=== PATIENT | female | born 1945 | race Caucasian/White ===

== ENCOUNTER 2023-02-05 11:14 | Outpatient (OUT) | payer MEDICARE, OTHER, SELFPAY ==
--- NOTE | 2023-02-05 11:23 | XR_ITS ---
The [address] [address] Patient Name: BIANKA JOY MRN: [id number] date: 1945 Sex: F Assigned Patient Location: [facility] Current Patient Location: [facility] Accession/Order Number: [id number] Exam Date: 02/05/2023 11:25 Report Date: 02/05/2023 16:58 At the request of: KYLE RAI Procedure: XR abdomen 1V EXAMINATION: XR abdomen 1V HISTORY: Kidney Stone N20.0 COMPARISON: No relevant comparison available. FINDINGS: KIDNEY/URETER - RIGHT: No visible renal or ureteral calcifications. KIDNEY/URETER - LEFT: 11.1 x 5.3 mm calcification projects over the lower pole of the left kidney PELVIS: No visible ureteral calcifications. Any visible calcifications favor phleboliths. BOWEL: No abnormal dilation or deviation. BONES: No acute abnormality. Degenerative spondylosis OTHER: Negative. No abnormal gaseous collections. XR/XR abdomen 1V IMPRESSION: 11.1 mm left nephrolith Electronically authenticated by: VARGAS ULRICH Date: 02/05/2023 16:58
== END 2023-02-05 11:15 | disposition home or self-care (01) ==
LOC: RAD 11:19
PROVIDERS: PCP Family Medicine; Visit Provider Urology
DX: N20.0 Calculus of kidney (principal)
CPT/HCPCS: 74018

== ENCOUNTER 2024-02-10 11:20 | Outpatient (OUT) | payer MEDICARE, OTHER, SELFPAY ==
--- NOTE | 2024-02-10 11:28 | XR_ITS ---
The [address] [address] Patient Name: BIANKA JOY MRN: [id number] date: 1945 Sex: F Assigned Patient Location: [facility] Current Patient Location: Accession/Order Number: [id number] Exam Date: 02/10/2024 11:43 Report Date: 02/11/2024 10:30 At the request of: KYLE RAI Procedure: XR abdomen 1V EXAMINATION: XR abdomen 1V HISTORY: Kidney Stone N20.0 COMPARISON: No relevant comparison available. FINDINGS: KIDNEY/URETER - RIGHT: No visible renal or ureteral calcifications. KIDNEY/URETER - LEFT: Collection of 3-5 mm stones within inferior pole of left kidney. PELVIS: No convincing ureteral stones. Stable pelvic calcifications favoring phleboliths. BOWEL: No abnormal dilation or deviation. BONES: No acute abnormality. OTHER: Negative. No abnormal gaseous collections. XR/XR abdomen 1V IMPRESSION: 1. Left nephrolithiasis. Electronically authenticated by: STEPHANIE MARIA Date: 02/11/2024 10:30
== END 2024-02-10 11:21 | disposition home or self-care (01) ==
LOC: RAD 11:22
PROVIDERS: PCP Family Medicine; Visit Provider Urology
DX: N20.0 Calculus of kidney (principal)
CPT/HCPCS: 74018

== ENCOUNTER 2025-02-07 12:57 | Outpatient (OUT) | payer MEDICARE, OTHER, SELFPAY ==
--- NOTE | 2025-02-07 13:17 | XR_ITS ---
The [address] [address] Patient Name: BIANKA JOY MRN: [id number] date: 1945 Sex: F Assigned Patient Location: [facility] Current Patient Location: [facility] Accession/Order Number: [id number] Exam Date: 02/07/2025 13:10 Report Date: 02/07/2025 13:44 At the request of: KYLE RAI MD Procedure: XR abdomen 1V SINGLE VIEW ABDOMEN COMPARISON: 02/10/2024 CLINICAL DATA: History of left-sided kidney stones. Supine views of the abdomen and pelvis were obtained. There is air and stool within the colon. No dilated small bowel loops are seen. The kidneys are partially obscured. There are similar clustered stones overlying the lower pole of the left kidney. There are no suspect radiopaque renal or ureteral calculi. No soft tissue masses are noted. There is slight dextroscoliotic curvature and degenerative change at the spine. XR/XR abdomen 1V IMPRESSION: CONTINUED LEFT NEPHROLITHIASIS. Impression dictated by: Dorita Garcia M.D. 02/07/2025 1:44 PM Dictation Location: [place] [address] Electronically authenticated by: [id number] Y Date: 02/07/2025 13:44
== END 2025-02-07 12:58 | disposition home or self-care (01) ==
LOC: RAD 13:01
PROVIDERS: PCP Family Medicine; Visit Provider Urology
DX: N20.0 Calculus of kidney (principal)
CPT/HCPCS: 74018

== ENCOUNTER 2025-02-18 10:08 | Outpatient (OUT) | payer MEDICARE, OTHER, SELFPAY ==
--- OUTSIDE RECORDS SUMMARY | 2025-02-18 10:09 | XMS_ITS | Encounter Summary ---
Author Organization [facility] s tem Address [id number] [address] [place] [address] Care Team Providers Care Telehealth Coordinator Name Role Phone JaiHerb Heather DE LA GARZA Primary Care Provider + [phone] Encounter Details Date Type Department Care Team (Late st Contact Info) Description 06/18/2023 [facility]phone [facility] [address] [place] [address] Feli Lombardi CMA Social History Tobacco Use Types Packs/Day Years Used Date Smoking Tobacco: Never Smokeless Tobacco: Never Alcohol Use Standard Drinks/Week Comments Not Currently 0 (1 standard drink = 0.6 oz pur e alcohol) Social Connection and Isolat ion Panel [NHANES] Answer Date Recorded In a typical week, how many times do you talk on the phone with family, friends, or neighbors? More than three times a week 10/31/2022 How often do you get togethe r with friends or relatives? Twice a week 10/31/2022 How often do you attend chur ch or gnosticism services? More than 4 times per year 10/31/2022 Do you belong to any clubs o r organizations such as jehovah's witness groups, unions, fraternal or athletic groups, or school groups? No 10/31/2022 How often do you attend meet ings of the clubs or organizations you belong to? Never 10/31/2022 Are you , , di vorced, , never , or living with a partner? 10/31/2022 AUDIT-C Answer Date Recorded Q1: How often do you have a drink containing alcohol? Never 09/02/2022 Q2: How many drinks containi ng alcohol do you have on a typical day when you are drinking? Patient does not drink Q3: How often do you have si x or more drinks on one occasion? Never 09/02/2022 Overall Financial Resource Strain (CARDIA) Answe r Date Recorded How hard is it for you to pa y for the very basics like food, housing, medical care, and heating? Not hard at all 09/02/2022 PHQ-2 Answer Date Recorded Total Score 1 10/31/2022 [facility] of Occupat ional Health - Occupational Stress Questionnaire Answer Date Recorded Do you feel stress - tense, restless, nervous, or anxious, or unable to sleep at night because your mind is troubled all the time - these days? Only a little 09/02/2022 Exercise Vital Sign Answer Date Recorde d On average, how many days pe r week do you engage in moderate to strenuous exercise (like a brisk walk)? 0 days 09/02/2022 On average, how many minutes do you engage in exercise at this level? 0 min 09/02/2022 PRAPARE - Transportation Answer Date Re corded In the past 12 months, has l ack of transportation kept you from medical appointments or from getting medications? No 07/2022 In the past 12 months, has l ack of transportation kept you from meetings, work, or from getting things needed for daily living? No 09/02/2022 Housing Instability Answer Date Recorde d Are you worried or concerned that in the next two months you may not have stable housing that you own, rent or stay in as a part of a household? No 09/02/2022 Childcare Answer Date Recorded Do problems getting child ca re make it difficult for you to work or study? No 09/02/2022 Employment Answer Date Recorded Do you need help finding a [facility] career center and/or a training program? No 09/02/2022 Hunger Screening Answer Date Recorded Within the past 12 months we worried whether our food would run out before we got money to buy more. Never True 10/31/2022 Within the past 12 months th e food we bought just didn't last and we didn't have money to get more. Never True 10/31/2022 Purpose - Life Answer Date Recorded I have a purpose and direction in my life. Stron gly Agree 10/31/2022 Comments No Sex and Gender Information Value Date Recorded Sex Assigned at Not on file Legal Sex Female 11:33 AM EDT Gender Identity Not on file Sexual Orientation Not on file documented as of this encounter Miscellaneous Notes * Telephone Encounter - Feli Lombardi CMA - 06/18/2023 10:28 AM EST Patient came in with and stated she needs an [facility] to [facility] documented in this encounter Plan of Treatment Upcoming Encounters Date Type Department Care Team (Late st Contact Info) Description 07/08/2025 10:30 AM EST Office Visit [facility] - Family Medicine [address] [place] [address] Herb Vergara DO [address] [facility] [place] [address] 11/15/2025 1:00 PM EDT Office Visit [facility] - Family Medicine [address] [place] [address] documented as of this encounter Visit Diagnoses Not on filedocumented in this encounter Additional Health Concerns Assessment Noted Time PHQ-9 Depression Total Score: 1 11/01/19 23 12:11 PM EDT documented as of this encounter Care Teams Telehealth Coordinator Relationship Specialty Start Date End Date Herb Vergara DO [address] [facility] [place] [address] PCP - General Family Medicine 11/05/17 documented as of this encounter
--- NOTE | 2025-02-18 10:10 | US_ITS ---
The [address] [address] Patient Name: BIANKA JOY MRN: [id number] date: 1945 Sex: F Assigned Patient Location: Current Patient Location: US Accession/Order Number: [id number] Exam Date: 02/18/2025 10:16 Report Date: 02/18/2025 11:50 At the request of: KYLE RAI MD Procedure: US renal BI BILATERAL RENAL AND BLADDER ULTRASOUND CLINICAL HISTORY: Left flank pain. History of kidney stones. COMPARISON: CT 04/29/2018 and KUB 02/07/2025 Estimation of renal size is approximately 9.1 cm on the right and 11.5 cm on the left. There is mild cortical thinning. There is an echogenic focus with twinkle artifact at the inferior pole of the left kidney measuring approximately 14 mm in size. This correlates with the calcified stone seen on recent KUB. There is also a potential second tiny stone in close proximity measuring 3 - 4 mm. No hydronephrosis is identified. There is a tiny right renal cyst measuring 1 cm in size. There are also left renal cysts, largest at the inferior pole measuring 18 x 16 x 15 mm. There is no perinephric fluid. The urinary bladder is not well distended with a volume of 46 mL. No contour or intraluminal abnormalities are seen. US/US renal BI IMPRESSION: LEFT NEPHROLITHIASIS. RENAL CYSTS. NO OBSTRUCTIVE UROPATHY. Impression dictated by: Dorita Garcia M.D. 02/18/2025 11:50 AM Dictation Location: [place] [address] Electronically authenticated by: [id number] Y Date: 02/18/2025 11:50
--- OUTSIDE RECORDS SUMMARY | 2025-02-18 10:10 | XMS_ITS | Encounter Summary ---
Author Organization [facility] Sys tem Address [id number] [address] [place] [address] Care Team Providers Care Associate Entertainment Editor Name Role Phone Herb Vergara DO Primary Care Provider [phone] Encounter Details Date Type Department Care Team (Late st Contact Info) Description 10/03/2023 Orders Only [facility] - Family Medicine [address] [place] [address] Herb Vergara DO [address], [facility] [address] Type 2 diabetes mellitus with stage 3b chronic kidney disease, without long-term current use of insulin ([facility]) Social History Tobacco Use Types Packs/Day Years [...] often do you attend chur ch or confucianist services? More than 4 times per year 10/31/2022 Do you belong to any clubs o r organizations such as zoroastrianism groups, unions, fraternal or athletic groups, or [...] 09/02/2022 PHQ-2 Answer Date Recorded Total Score 6 09/30/2023 [facility] of Occupat ional Health - Occupational Stress [...] Recorded Do you need help finding a [facility] career center and/or a training program? No 09/02/2022 Hunger Screening Answer Date Recorded Within the past 12 months we worried whether our food would run out before we got money to buy more. Never True 09/30/2023 Within the past 12 months th e food we bought just didn't last and we didn't have money to get more. Never True 09/30/2023 Purpose - Life Answer Date Recorded I have a purpose and direction in my life. Stron gly Agree 10/31/2022 Comments No Sex and Gender Information Value Date Recorded Sex Assigned at Not on file Legal Sex Female 11:33 AM EDT Gender Identity Not on file Sexual Orientation Not on file documented as of this encounter Plan of Treatment Upcoming Encounters Date Type Department Care Team (Late st Contact Info) Description 07/08/2025 10:30 AM EST Office Visit [facility] - Family Medicine [address] [place] [address] Herb Vergara DO [address] [facility] [place] [address] 11/15/2025 1:00 PM EDT Office Visit [facility] - Family Medicine [address] [place] [address] documented as of this encounter Visit Diagnoses Diagnosis Type 2 diabetes mellitus with stage 3b chronic kidney disease, without long-term current use of insulin ([facility]) documented in this encounter Additional Health Concerns Assessment Noted Time PHQ-9 Depression Total Score: 6 09/30/19 24 3:28 PM EDT A Body Mass Index follow-up plan has been documented for the patient 08/29/2023 1:31 PM EDT documented as of this encounter Care Teams Associate Entertainment Editor Relationship Specialty Start Date End Date Herb Vergara DO [address] [facility] [place] [address] PCP - General Family Medicine 11/05/17 documented as of this encounter
--- OUTSIDE RECORDS SUMMARY | 2025-02-18 10:10 | XMS_ITS | Encounter Summary ---
Author Organization [facility] Sys tem Address [id number] [address] [place] [address] Care Team Providers Care Bar Manager Name Role Phone Herb Vergara DO Primary Care Provider + [phone] Reason for Visit * Reason Comments Med Refill Encounter Details Date Type Department Care Team (Late st Contact Info) Description 11/12/2022 Refill [facility] - Family Medicine [address] [place] [address] Herb Vergara DO [address], [facility] [place] [address] Mixed hyperlipidemia Social History Tobacco Use Types Packs/Day Years [...] 10/31/2022 How often do you attend chur or anabaptism services? More than 4 times per year 10/31/2022 Do you belong to any clubs o r organizations such as cheondoism groups, unions, fraternal or athletic groups, or [...] Answer Date Recorded Total Score 1 10/31/2022 [facility] of Occupat ional Health - Occupational Stress [...] Recorded Do you need help finding a [facility] career center and/or a training program? No [...] - Family Medicine [address] [place] [address] Herb Vergara DO [address] [facility] [place] [address] 11/15/2025 1:00 PM EDT Office Visit [facility] - Family Medicine [address] [place] [address] documented as of this encounter Visit Diagnoses Diagnosis Mixed hyperlipidemia documented in this encounter Additional Health Concerns Assessment Noted Time PHQ-9 Depression Total Score: 1 11/01/19 23 12:11 PM EDT documented as of this encounter Care Teams Bar Manager Relationship Specialty Start Date End Date Herb Vergara DO [address] [facility] [place] [address] PCP - General Family Medicine 11/05/17 documented as of this encounter
--- OUTSIDE RECORDS SUMMARY | 2025-02-18 10:10 | XMS_ITS | Encounter Summary ---
Author Organization [facility] Sys [facility] Address [facility]-[id number] [address] [place] [address] Care Team Providers Care Paper Plate Machine Tender Name Role Phone Herb Vergara DO Primary Care Provider + [phone] Reason for Visit * Reason Comments Med Refill Encounter Details Date Type Department Care Team (Late st Contact Info) Description 12/24/2022 Refill [facility] - Family Medicine [address] [place] [place] [address] Herb Vergara DO [address], [facility] [place] [address] Social History Tobacco Use Types Packs/Day Years [...] often do you attend chur ch or protestant services? More than 4 times per year 10/31/2022 Do you belong to any clubs o r organizations such as sikhism groups, unions, fraternal or athletic groups, or [...] Answer Date Recorded Total Score 1 10/31/2022 [facility] of Occupat ional Health - Occupational [...] Recorded Do you need help finding a [facility] career center and/or a training program? No [...] Medicine - Family Medicine [address] [place] [address] Herb Vergara DO [address], [facility] [place] [address] 11/15/2025 1:00 PM EDT Office Visit [facility] - Family Medicine [address] [place] [address] documented as of this encounter Visit Diagnoses Not on filedocumented in this encounter Additional Health Concerns Assessment Noted Time PHQ-9 Depression Total Score: 1 11/01/19 23 12:11 PM EDT documented as of this encounter Care Teams Paper Plate Machine Tender Relationship Specialty Start Date End Date Herb Vergara DO [address] [place] [address] [address] PCP - General Family Medicine 11/05/17 documented as of this encounter
--- OUTSIDE RECORDS SUMMARY | 2025-02-18 10:10 | XMS_ITS | Encounter Summary ---
Author Organization [employer] s tem Address [id number] [address] [place] [address] Care Team Providers Care Conference Services Manager Name Role Phone Herb Vergara DO Primary Care Provider [phone] Encounter Details Date Type Department Care Team (Late st Contact Info) Description 03/26/2024 Telephone Family [facility] [address] [place] [address] Herb Vergara DO [address] [facility], [facility] [place] [address] Social History Tobacco Use Types Packs/Day Years Used Date Smoking Tobacco: Never Smokeless Tobacco: Never Alcohol Use Standard Drinks/Week Comments Not Currently 0 (1 standard drink = 0.6 oz pur e alcohol) [facility] Utilities Answer Date Recorded In the past 12 months has [employer], gas, oil, or water [employer] threatened to shut off services in your home? No 11/06/2023 Social Connection and Isolat ion Panel [NHANES] Answer Date Recorded In a typical week, how many times do you talk on the phone with family, friends, or neighbors? More than three times a week 10/31/2022 How often do you get togethe r with friends or relatives? Twice a week 10/31/2022 How often do you attend [facility] or jain services? More than 4 times per year 10/31/2022 Do you belong to any clubs o r organizations such as restoration groups, unions, fraternal or athletic groups, or [...] 09/02/2022 PHQ-2 Answer Date Recorded Total Score 0 11/06/2023 [facility] of Occupat ional Health - Occupational [...] exercise (like a brisk walk)? 0 days 11/06/2023 On average, how many minutes do you engage in exercise at this level? 0 min 11/06/2023 PRAPARE - Transportation Answer Date Re corded [...] Recorded Do you need help finding a [facility] and/or a training program? [...] - Family Medicine [address] [place] [address] Herb Vergara DO [address] [facility] [place] [address] 11/15/2025 1:00 PM EDT Office Visit [facility] - Family Medicine [address] [place] [address] documented as of this encounter Visit Diagnoses Not on filedocumented in this encounter Additional Health Concerns Assessment Noted Time PHQ-9 Depression Total Score: 0 11/06/19 24 1:00 PM EDT A Body Mass Index follow-up plan has been documented for the patient 08/29/2023 1:31 PM EDT documented as of this encounter Care Teams Conference Services Manager Relationship Specialty Start Date End Date Herb Vergara DO [address] [facility] [place] [address] PCP - General Family Medicine 11/05/17 documented as of this encounter
--- OUTSIDE RECORDS SUMMARY | 2025-02-18 10:10 | XMS_ITS | Encounter Summary ---
Author Organization [facility] Sys tem Address [id number] [address] [place] [address] Care Team Providers Care Personal Injury Paralegal Name Role Phone Herb Vergara DO Primary Care Provider [phone] Encounter Details Date Type Department Care Team (Late st Contact Info) Description 10/15/2022 Orders Only [facility] Internal Medicine - Family Medicine [address] [place] [address] Herb Vergara DO [address], [facility] [place] [address] Social History Tobacco Use Types Packs/Day Years Used Date Smoking Tobacco: Never Smokeless Tobacco: Never Alcohol Use Standard Drinks/Week Comments Not Currently 0 (1 standard drink = 0.6 oz pur e alcohol) AUDIT-C Answer Date Recorded Q1: How often [...] PHQ-2 Answer Date Recorded Total Score 0 10/14/2022 [facility] [place] of Occupat ional Health - Occupational Stress [...] Recorded Do you need help finding a [facility] career center and/or a training program? No 09/02/2022 Purpose - Life Answer Date Recorded Purpose and direction in life Unknown Comments No Sex and Gender Information Value [...] Medicine - Family Medicine [address] [place] [address] Herb Vergara DO [address], [place] [address] 11/15/2025 1:00 PM EDT Office Visit [facility] - Family Medicine [address] [place] [address] documented as of this encounter Procedures Procedure Name Priority Date/Time Associated Diagnosis Comments HM DEXA SCAN Routine 09/18/2018 HEPATITIS C(HCV) ANTIBODY W/ REFLEX TO PCR Routine 08/12/2017 documented in this encounter Results * HM DEXA SCAN (09/18/2018) Anatomical Region Laterality Modality Other us Herb Vergara DO HEALTH MAINTENANCE Final Res ult * Hepatitis C(HCV) Ab w/ Reflex to PCR (08/12/2017) us Herb Vergara DO LAB BLOOD ORDERABLES Final R esult MANUALLY TRANSCRIBED RESULTS documented in this encounter Visit Diagnoses Not on filedocumented in this encounter Additional Health Concerns Assessment Noted Time PHQ-9 Depression Total Score: 0 10/15/19 23 10:39 AM EDT documented as of this encounter Care Teams Personal Injury Paralegal Relationship Specialty Start Date End Date Herb Vergara DO [address], [place] [address] PCP - General Family Medicine 11/05/17 documented as of this encounter
--- OUTSIDE RECORDS SUMMARY | 2025-02-18 10:10 | XMS_ITS | Clinical Summary ---
Author Organization [facility] Healthcare Address [address] [place] [address] Care Team Providers Care Nurse Epidemiologist Name Role Phone Herb Vergara MD Primary Care Provider + [phone] Allergies Active Allergy Reactions Criticality Noted Date Comments Penicillins Unknown,Swelling 09/25/2021 Swelling in hands Medications acetaminophen (Tylenol) 325 MG tablet every 4 (four) hours Active amLODIPine (Norvasc) 5 MG tablet Take 5 mg by mouth in the morning. Active aspirin 81 MG EC tablet Take 81 mg by mouth in the morning. Active atorvastatin (Lipitor) 40 MG tablet Take 1 tablet by mouth in the morning. 4 Active azithromycin (Zithromax) 250 MG tablet TAKE 2 TABLETS BY MOUTH 1 HOUR PRIOR TO APPOINTMENT 4 Active cholecalciferol (Vitamin D-3) 50 MCG (1999 UT) capsule Daily 4 Active doxycycline (Vibramycin) 100 MG capsule Twice daily 4 Active famotidine (Pepcid) 40 MG tablet TAKE 1 TABLET BY MOUTH TWICE DAILY (IN THE MORNING AND AT BEDTIME) Active loratadine (Claritin) 10 MG tablet Take 10 mg by mouth in the morning. Active losartan (Cozaar) 100 MG tablet Take 100 mg by mouth Daily Active magnesium gluconate 550 MG tablet Take 30 mg by mouth in the morning and 30 mg in the evening. Active pantoprazole (ProtoNix) 40 MG EC tablet Take 40 mg by mouth in the morning. Active Potassium Bicarb-Citric Acid (Effer-K) 10 MEQ effervescent tablet 1 (one) time each day at the same time Active sertraline (Zoloft) 50 MG tablet Take 1 tablet by mouth Daily 4 Active simvastatin (Zocor) 20 MG tablet 1 (one) time each day at the same time Active Family History Relation Name Status Comments Father Mother Social History Tobacco Use Types Packs/Day Years Used Date Smoking Tobacco: Never Assessed Comments Unknown Sex and Gender Information Value Date Recorded Sex Assigned at Not on file Legal Sex Female 7:08 PM EDT Gender Identity Not on file Sexual Orientation Not on file Last Filed Vital Signs Vital Sign Reading Time Taken Comments Blood Pressure - - Pulse - - Temperature - - Respiratory Rate - - Oxygen Saturation - - Inhaled Oxygen Concentration - - Weight 77.1 kg (170 lb) 05/15/2022 12:00 PM EST Height 160 cm (5' 3 ) 05/15/2022 12:00 PM EST Body Mass Index 30.11 05/15/2022 12:00 PM EST Plan of Treatment Upcoming Encounters Date Type Department Care Team (Late st Contact Info) Description 01/16/2026 2:45 PM EDT Office Visit [facility] [address] [place] [address] Jr. Beto Dubon , DO [address] [facility] [address] [place] [address] Health Maintenance Due Date Last Done Comments Influenza Vaccine (#1) 2025 3, 03/08/2022, 03/14/2021, Additional history exists Pneumococcal Vaccine: 65+ Years Completed 02/18/2018, 01/31/2015, 12/25/2011 Insurance MEDICARE [employer] Care Teams Nurse Epidemiologist Relationship Specialty Start Date End Date Herb Vergara MD PCP - General Family Medicine 01/12/24
--- OUTSIDE RECORDS SUMMARY | 2025-02-18 10:10 | XMS_ITS | Encounter Summary ---
Author Organization [facility] [employer] [facility] [employer] Address [id number] [address] [place] [address] Care Team Providers Care [employer] Truck Driver Name Role Phone Herb Vergara DO Primary Care Provider + [phone] Reason for Visit * Reason Comments Med Refill Encounter Details Date Type Department Care Team (Late st Contact Info) Description 11/27/2022 Refill [facility] - Family Medicine [address] [place] [address] Herb Vergara DO [address], [facility] [place] [address] Social History Tobacco Use Types Packs/Day Years [...] often do you attend chur ch or alevism services? More than 4 times per year 10/31/2022 Do you belong to any clubs o r organizations such as anabaptism groups, unions, fraternal or athletic groups, or [...] Answer Date Recorded Total Score 1 10/31/2022 [facility] of Occupat ional Health - Occupational Stress [...] Recorded Do you need help finding a [facility] career [facility] and/or a training program? No [...] Medicine - Family Medicine [address] [place] [address] Herb Vergara DO [address], [facility] [place] [address] 11/15/2025 1:00 PM EDT Office Visit [facility] - Family Medicine [address] [place] [address] documented as of this encounter Visit Diagnoses Not on filedocumented in this encounter Additional Health Concerns Assessment Noted Time PHQ-9 Depression Total Score: 1 11/01/19 23 12:11 PM EDT documented as of this encounter Care Teams [employer] Truck Driver Relationship Specialty Start Date End Date Herb Vergara DO [address] [place] [address] [place] [address] PCP - General Family Medicine 11/05/17 documented as of this encounter
--- OUTSIDE RECORDS SUMMARY | 2025-02-18 10:10 | XMS_ITS | Encounter Summary ---
Author Organization [facility] Address [id number] [address] [place] [address] Care Team Providers Care Inventory Checker Name Role Phone JaiHerb Heather DE LA GARAZ Primary Care Provider + [phone] Encounter Details Date Type Department Care Team (Late st Contact Info) Description 11/26/2022 Orders Only [facility] - Family Medicine [address] [place] [address] Rosario Suarez CMA Asymptomatic menopause Social History Tobacco Use Types Packs/Day Years [...] often do you attend chur ch or mu-ism services? More than 4 times per year 10/31/2022 Do you belong to any clubs o r organizations such as buddhist groups, unions, fraternal or athletic groups, or [...] Answer Date Recorded Total Score 1 10/31/2022 [facility] [place] of Occupat ional Health - Occupational Stress [...] Recorded Do you need help finding a l al career center and/or a training program? No [...] - Family Medicine [address] [place] [address] Herb Vergara DO [address] [facility] [place] [address] 11/15/2025 1:00 PM EDT Office Visit [facility] - Family Medicine [address] [place] [address] documented as of this encounter Procedures Procedure Name Priority Date/Time Associated Diagnosis Comments DEXA SCAN CENTRAL SKELETAL Routine 11/25/2022 Asymptomatic menopause documented in this encounter Results * Dexa scan central skeletal (11/25/2022) Anatomical Region Laterality Modality N/A Radiographic Alma ging 11/25/2022 us Herb Vergara DO IMG DXA ORDERABLES Final Res ult documented in this encounter Visit Diagnoses Diagnosis Asymptomatic menopause documented in this encounter Additional Health Concerns Assessment Noted Time PHQ-9 Depression Total Score: 1 11/01/19 23 12:11 PM EDT documented as of this encounter Care Teams Inventory Checker Relationship Specialty Start Date End Date Herb Vergara DO [address], [facility] [place] [address] PCP - General Family Medicine 11/05/17 documented as of this encounter
--- OUTSIDE RECORDS SUMMARY | 2025-02-18 10:10 | XMS_ITS | Encounter Summary ---
Author Organization [facility] [employer] [facility] Address [id number] [address] [place] [address] Care Team Providers Care Industrial Machine Operator Name Role Phone Herb Vergara DO Primary Care Provider [phone] Reason for Visit * Reason Onset Date Comments Med Refill 09/30/2022 Encounter Details Date Type Department Care Team (Late st Contact Info) Description 09/30/2022 Refill [facility] - Family Medicine [address] [place] [address] Herb Vergara DO [address], [facility] [place] [address] Social History Tobacco Use Types Packs/Day Years [...] PHQ-2 Answer Date Recorded Total Score 0 09/02/2022 [facility] [place] of Occupat ional Health - Occupational Stress [...] Recorded Do you need help finding a [employer] career center and/or a training program? No 09/02/2022 Purpose - Life Answer Date Recorded Purpose and direction in life Unknown Comments No Sex and Gender Information Value Date Recorded Sex Assigned at Not on file Legal Sex Female 11:33 AM EDT Gender Identity Not on file Sexual Orientation Not on file COVID-19 Exposure Response Date Recorded In the last month, have you been in contact with someone who was confirmed or suspected to have Coronavirus / COVID-19? No / Unsure 09/02/2022 10:14 AM EDT documented as of this encounter Plan of Treatment Upcoming Encounters Date Type Department Care Team (Late st Contact Info) Description 07/08/2025 10:30 AM EST Office Visit [facility] - Family Medicine [address] [place] [address] Herb Vergara DO [address] [facility] [place] [address] 11/15/2025 1:00 PM EDT Office Visit [facility] - Family Medicine [address] [place] [address] documented as of this encounter Visit Diagnoses Not on filedocumented in this encounter Additional Health Concerns Assessment Noted Time PHQ-9 Depression Total Score: 0 09/03/19 23 10:30 AM EDT documented as of this encounter Care Teams Industrial Machine Operator Relationship Specialty Start Date End Date Herb Vergara DO [address] [facility] [place] [address] PCP - General Family Medicine 11/05/17 documented as of this encounter
--- OUTSIDE RECORDS SUMMARY | 2025-02-18 10:10 | XMS_ITS | Clinical Summary ---
Author Organization [employer] Address [id number] [address] [place] [address] Care Team Providers Care Pharmacy Student Name Role Phone JaiHerb Primary Care Provider Allergies Active Allergy Reactions Criticality Noted Date Comments Adhesive Rash Medium 09/25/2021 Adhesive Tape Penicillins Other (See Comments) 09/25/2021 Swelling in hands Medications potassium citrate (UROCIT-K) 10 mEq (1,080 mg) CR tablet Take 1 tablet (10 mEq total) by mouth in the morning and 1 tablet (10 mEq total) before bedtime. Active calcium carbonate/vitamin D3 (CALCIUM 500 + D ORAL) Take 600 mg by mouth in the morning. Active beta-carotene,A,- vits C,E/mins (VISION FORMULA ORAL) Take by mouth. Active aspirin 81 mg Take 1 tablet (81 mg total) by mouth in the morning. Active fluticasone propionate (FLONASE) 50 mcg/actuation nasal sprayIndications: Allergic rhinitis, unspecified seasonality, unspecified trigger Administer 1 spray into each nostril in the morning. 16 g 2 023 Active magnesium 30 mg tablet Take 1 tablet (30 mg total) by mouth in the morning and 1 tablet (30 mg total) before bedtime. Active loratadine (CLARITIN) 10 mg tabletIndications :Allergic rhinitis, unspecified seasonality, unspecified trigger Take 1 tablet (10 mg total) by mouth daily as needed for allergies. TAKE 1 TABLET BY MOUTH IN THE MORNING 90 tablet 3 024 Active sertraline (ZOLOFT) 50 mg tablet Take 1 tablet by mouth once daily 90 tablet 1 024 Active atorvastatin (LIPITOR) 40 mg tabletIndications :Mixed hyperlipidemia TAKE 1 TABLET BY MOUTH IN THE MORNING 90 tablet 1 025 Active acetaminophen (TYLENOL ARTHRITIS) 650 mg 8 hr tablet Take 1 tablet (650 mg total) by mouth every 8 (eight) hours as needed for pain. 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 180 tablet 1 025 Active pantoprazole (PROTONIX) 40 mg EC tabletIndications :Ulcer of esophagus without bleeding Take 1 tablet (40 mg total) by mouth every morning before breakfast. 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 ([facility]) TAKE 1 TABLET BY MOUTH IN THE MORNING 90 tablet 1 025 2024 Discontinued pantoprazole (PROTONIX) 40 mg EC tabletIndications :Ulcer of esophagus without bleeding TAKE 1 TABLET BY MOUTH IN THE MORNING BEFORE BREAKFAST 90 tablet 1 025 2024 Discontinued(R eorder) Active Problems Problem Noted Date Diagnosed Date Iron deficiency anemia 09/30/2023 Grade I diastolic dysfunction 09/30/2023 Bradycardia 09/30/2023 Urge incontinence 08/29/2023 Microhematuria 08/29/2023 Allergic rhinitis 08/29/2023 Asymptomatic menopause 11/25/2022 Hiatal hernia with GERD and esophagitis 10/15/19 Ulcer of esophagus without bleeding 07/12/2022 Antral gastritis 07/12/2022 Gastroesophageal reflux disease 03/04/2022 Kidney stone 03/04/2022 Ventricular premature beats 09/18/2020 Diverticulosis of sigmoid colon 02/28/2020 Cervical spondylosis 02/24/2019 Anemia 02/20/2019 Anemia due to chronic kidney disease 08/30/2018 Stage 3 chronic kidney disease 02/26/2018 Diastolic dysfunction 02/26/2018 Mitral valve regurgitation 02/26/2018 Osteopenia 08/14/2017 Obesity 08/13/2017 Hyperlipidemia 08/11/2017 Essential hypertension 01/21/2017 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 01/21/2017 Resolved Problems Problem Noted Date Diagnosed Date Resolved Date History of Clostridioides difficile infection 02/19/20 18 10/14/2022 Mild major depression 08/13/20172022 Encounters Date Type Department Care Team Description 02/08/2025 Refill [facility] [address] [place] [address] Herb Vergara, 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 ([facility]) 01/20/2025 Refill [facility] [address] [place] [address] Myriam Blair CMA Ulcer of esophagus without bleeding 01/20/2025 Refill [facility] [address] [place] [address] Herb Vergara, DO Ulcer of esophagus without bleeding 01/07/2025 Telephone [facility] [address] [place] [address] Bertha Arnold CMA 01/06/2025 Results Follow-Up [facility] [address] [place] [address] Herb Vergara, Microalbumin - Albumin: Creatinine Urine Ratio, Vitamin D 25 hydroxy, Uric acid, Additional followed-up results: 7 01/05/2025 10:00 AM EDT Office Visit [facility] [address] [place] [address] Herb Vergara, 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 ([facility]) (Primary Dx); Mixed hyperlipidemia; Gastroesophageal reflux disease with esophagitis without hemorrhage; Neoplasm of uncertain behavior of skin; Class 1 obesity due to excess calories with serious comorbidity and body mass index (BMI) of 31.0 to 31.9 in adult 01/05/2025 Travel 12/14/2024 Refill [facility] [address] [place] [address] Myriam Blair CMA Gastroesophageal reflux disease with esophagitis without hemorrhage 12/14/2024 Refill [facility] [address] [place] [address] Herb Vergara, Gastroesophageal reflux disease with esophagitis without hemorrhage 11/24/2024 Refill [facility] [address] [place] [address] Herb Vergara, 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 ([facility]) (Primary Dx) from Last 3 Months Immunizations Immunization Administration Dates Next Due Influenza High Dose Preservative Free IM 024 Influenza Vaccine, Quadrivalent, Adjuvanted 11/2021,03/14/2021 Influenza, High-dose, Quadrivalent 03/12/2023, Influenza, Im Flucelvax (Pf) 01/31/2015 Influenza, Injectable, Quadrivalent 03/25/2018 Influenza, Injectable, quadrivalent (PF) 019 Pneumococcal Conjugate 13-Valent 02/18/2018 Pneumococcal Polysaccharide 01/31/2015, 2 RSV, recombinant, protein haney bunit RSVpreF, adjuvant reconstituted, 0.5 mL, PF 04/30/2023 Tdap 08/25/2018 Zoster Live 12/15/2008,06/02/2008 Zoster Vaccine Recombinant 08/02/2019,02/22/2019 Family History Medical History Relation Name Comments Heart attack Brother 1 Tung Arrhythmia Brother 2 Lee Mahmood has a pacemaker Prostate cancer Father Macular degeneration Mother at age 96 Nephrolithiasis Mother No Known Problems Sister No Known Problems Son electrocut ed at age 31 Breast cancer Neg Hx Relation Name Status Comments Brother 1 Tung Brother 2 Lee Nieset Alive Father Mother Sister Alive Son Social History Tobacco Use Types Packs/Day Years Used Date Smoking Tobacco: Never Smokeless Tobacco: Never Tobacco Cessation:Counseling Given: Not Answered Alcohol Use Standard Drinks/Week Comments Not Currently 0 (1 standard drink = 0.6 oz pur e alcohol) [facility] [employer] Answer Date Recorded In the past 12 months has [employer], gas, oil, or water Wish threatened to shut off services in your [...] How often do you attend chur or yarsanism services? More than 4 times per year [...] PHQ-2 Answer Date Recorded Total Score 0 01/05/2025 [facility] - Occupational Stress [...] exercise (like a brisk walk)? 0 days 11/09/2024 On average, how many minutes do you engage in exercise at this level? 0 min 11/09/2024 PRAPARE - Transportation Answer Date Re corded [...] Recorded Do you need help finding a [facility] career center and/or a training program? No 09/02/2022 Hunger Screening Answer Date Recorded Within the past 12 months we worried whether our food would run out before we got money to buy more. Never True 01/05/2025 Within the past 12 months th e food we bought just didn't last and we didn't have money to get more. Never True 01/05/2025 Purpose - Life Answer Date Recorded I have a purpose and direction in my life. Stron gly Agree 10/31/2022 Comments No Sex and Gender Information Value Date Recorded Sex Assigned at Not on file Legal Sex Female 11:33 AM EDT Gender Identity Not on file Sexual Orientation Not on file Last Filed Vital Signs Vital Sign Reading Time Taken Comments Blood Pressure 122/78 01/05/2025 9:50 AM EDT Pulse 95 01/05/2025 9:50 AM EDT Temperature 36.8 C (98.2 F) 01/05/2025 9:50 AM EDT Respiratory Rate 20 01/05/2025 9:50 AM EDT Oxygen Saturation 97% 01/05/2025 9:50 AM EDT Inhaled Oxygen Concentration - - Weight 77.1 kg (170 lb) 01/05/2025 9:50 AM EDT Height 157.5 cm (5' 2.01 ) 01/05/2025 9:50 AM ED T Body Mass Index 31.09 01/05/2025 9:50 AM EDT Plan of Treatment Upcoming Encounters Date Type Department Care Team (Late st Contact Info) Description 07/08/2025 10:30 AM EST Office Visit [facility] [address] [place] [address] Herb Vergara, DO [address], [facility] [place] [address] 11/15/2025 1:00 PM EDT Office Visit [facility] [address] [place] [address] Health Maintenance Due Date Last Done Comments COVID-19 Vaccine (7 - Modern a risk season) 2025 02/16/2024, 03/12/2023, 03/08/2022, Additional history exists Influenza Vaccine 01/31/2025 02/16/2024, , 03/08/2022, Additional history exists Medicare Annual Wellness Visit 11/09/2025 0 11/09/2024, 11/06/2023, 10/31/2022 Depression Screening 01/05/2026 01/05/2025 Fall Risk Screening 01/05/2026 01/05/2025 Tobacco Screening 01/05/2026 01/05/2025 DTaP,Tdap and Td Vaccines (2 - Td or Tdap) 08/25/2028 08/25/2018 Zoster (Shingles) Vaccine Completed 2019, 02/22/2019, 12/15/2008, Additional history exists Medical Devices Not on file Procedures Procedure Name Priority Date/Time Associated Diagnosis Comments COMPREHENSIVE METABOLIC PANEL Routine 01/05/2025 10:55 AM EDT 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 ([facility]) HEMOGLOBIN A1C Routine 01/05/2025 10:55 AM EDT 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 ([facility]) LIPID PROFILE Routine 01/05/2025 10:55 AM EDT Mixed hyperlipidemia MAGNESIUM Routine 01/05/2025 10:55 AM EDT 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 ([facility]) PARATHYROID HORMOME, INTACT Routine 01/05/2025 10:55 AM EDT 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 ([facility]) PHOSPHORUS Routine 01/05/2025 10:55 AM EDT 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 ([facility]) CBC (NO DIFF) Routine 01/05/2025 10:55 AM EDT 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 ([facility]) URIC ACID Routine 01/05/2025 10:55 AM EDT 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 ([facility]) VITAMIN D 25 HYDROXY Routine 01/05/2025 10:55 AM EDT 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 ([facility]) MICROALBUMIN / CREATININE URINE RATIO Routine 01/05/2025 10:55 AM EDT 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 [place] [address], [place] [phone] * (ABNORMAL) Microalbumin - Albumin: Creatinine Urine Ratio (01/05/2025 10:55 AM EDT) Pathologist [facility] URINE CREATININE,RDM 149.95 mg/dL 01/05/2025 6:55 PM EDT [facility] MALB/CREAT RATIO 16.0 0.0 - 30.0 mg/g 01/05/2025 6:55 PM EDT [facility] MICROALBUMIN, URINE 2.4(H) 0.0 - 1.9 mg/dL 01/05/2025 6:55 PM EDT [facility] Urine Urine specimen collection, clean catch / Unknown 01/05/2025 10:55 AM EDT 01/05/2025 10:55 AM EDT Herb Vergara DO URINE ORDERABLES Final Resul t [facility] [address] [place] [address], [place] [phone] * Vitamin D 25 hydroxy (01/05/2025 10:55 AM EDT) Pathologist [facility] VITAMIN D 25 HYD TOT 37.7 30.0 - 100.0 ng/mL 01/05/2025 7:15 PM EDT [facility] Blood Venous blood / Unknown 01/05/2025 10:55 AM EDT 01/05/2025 10:55 AM EDT Narrative [facility] - 01/05/2025 7:15 PM EDT Vitamin D status 25 [place] Vitamin D Deficiency <20 ng/mL Insufficiency 20-29 ng/mL Sufficiency 30-100 ng/mL Toxicity >100 ng/mL NOTE: A pediatric reference range has not been established by the pediatric sports medicine specialist of this kit. The [place] [employer] recommends a Vitamin D level of = or >20ng/mL in infants and children. us Herb Vergara DO LAB BLOOD ORDERABLES Final R esult [facility] [address] [place] [address], [place] [phone] * (ABNORMAL) CBC without diff (01/05/2025 10:55 AM EDT) WBC 8.6 4 - 11 x10E9/L 01/05/2025 6:31 PM EDT [facility] RBC Count 3.89 3.8 - 5.2 X10E12/L 01/05/2025 6:31 PM EDT [facility] Hemoglobin 10.1(L) 11.7 - 15.5 g/dL 01/05/2025 6:31 PM EDT [facility] Hematocrit 32.0(L) 35 - 47 % 01/05/2025 6:31 PM EDT [facility] MCV 82 80 - 100 fL 01/05/2025 6:31 PM EDT [facility] MCH 25.9(L) 27 - 34 pg 01/05/2025 6:31 PM EDT [facility] MCHC 31.4(L) 32 - 36 g/dL 01/05/2025 6:31 PM EDT [facility] RDW 16.5(H) 11.5 - 15 % 01/05/2025 6:31 PM EDT [facility] Platelet Count 284 150 - 450 X10E9/L 01/05/2025 6:31 PM EDT [facility] MPV 9.1 7 - 12 fL 01/05/2025 6:31 PM EDT [facility] Blood Venous blood / Unknown 01/05/2025 10:55 AM EDT 01/05/2025 10:55 AM EDT us [facility] BLOOD ORDERABLES Final R esult [facility] [address] [place] [address], * Uric acid (01/05/2025 10:55 AM EDT) URIC ACID 5.1 2.6 - 7.2 mg/dL 01/05/2025 6:57 PM EDT [facility] Blood Venous blood / Unknown 01/05/2025 10:55 AM EDT 01/05/2025 10:55 AM EDT Herb Romero [facility] LAB BLOOD ORDERABLES Final R esult [facility] [address] [place] [address], [place] [phone] * Phosphorus (01/05/2025 10:55 AM EDT) PHOSPHORUS 2.8 2.4 - 4.9 mg/dL 01/05/2025 6:57 PM EDT [facility] Blood Venous blood / Unknown 01/05/2025 10:55 AM EDT 01/05/2025 10:55 AM EDT us Herb Vergara DO LAB BLOOD ORDERABLES Final R esult [facility] [address] [place] [address], [place] [phone] * Magnesium (01/05/2025 10:55 AM EDT) MAGNESIUM 2.0 1.8 - 2.6 mg/dL 01/05/2025 6:57 PM EDT [facility] Blood Venous blood / Unknown 01/05/2025 10:55 AM EDT 01/05/2025 10:55 AM EDT us Herb Vergara DO LAB BLOOD ORDERABLES Final R formerly [facility] Performing Organization Address City/[facility]/ZIP Co de Phone Number [facility] [address] [place] [address], [place] [phone] * (ABNORMAL) Hemoglobin A1c (01/05/2025 10:55 AM EDT) HEMOGLOBIN A1C 6.9(H) 4.4 - 5.6 % 01/05/2025 7:33 PM EDT [facility] Comment: ADA Guidelines Result HgbA1c Normal : less than 5.7 % Prediabetes : 5.7 % to 6.4 % Diabetes : > 6.4 % Use with caution in patients with abnormal hemoglobin variants as the half-life of red blood cells and in vivo glycation rates are affected. EST. AVERAGE GLUCOSE 151 mg/dL 01/05/2025 7:33 PM EDT [facility] Blood Venous blood / Unknown 01/05/2025 10:55 AM EDT 01/05/2025 10:55 AM EDT us Herb Vergara LAB BLOOD ORDERABLES Final R esult [facility] [address] [place] [address], * (ABNORMAL) Lipid profile (01/05/2025 10:55 AM EDT) CHOLESTEROL 149(L) 150 - 200 mg/dL 01/05/2025 6:57 PM EDT [facility] TRIGLYCERIDE 224(H) 27 - 150 mg/dL 01/05/2025 6:57 PM EDT [facility] HDL CHOLESTEROL 49 >39 mg/dL 6:57 PM EDT [facility] Comment: HDL <40 mg/dL - High Risk HDL > or = 40mg/dL- Desirable HDL >60 mg/dL - Negative Risk LDL (CALC) 55 <130 mg/dL 01/05/2025 6:57 PM EDT [facility] Comment: LDL <100 mg/dL - Desirable LDL >160 mg/dL - High Risk CHOLESTEROL:HDL 3.0 1.0 - 5.0 6:57 PM EDT [facility] VERY LOW LIPOPROTEIN 45(H) 0 - 30 mg/dL 01/05/2025 6:57 PM EDT [facility] Blood Venous blood / Unknown 01/05/2025 10:55 AM EDT 01/05/2025 10:55 AM EDT Herb Vergara DO LAB BLOOD ORDERABLES Final R esult [facility] [address] [place] [address], [place] [phone] * (ABNORMAL) Comprehensive metabolic panel (01/05/2025 10:55 AM EDT) SODIUM 141 134 - 146 mmol/L 01/05/2025 6:57 PM EDT [facility] POTASSIUM 4.6 3.5 - 5.0 mmol/L 01/05/2025 6:57 PM [facility] CHLORIDE 105 98 - 109 mmol/L 01/05/2025 6:57 PM [facility] CARBON DIOXIDE 23 22 - 32 mmol/L 01/05/2025 6:57 PM [facility] ANION GAP 13 5 - 15 mmol/L 01/05/2025 6:57 PM [facility] BLOOD UREA NITROGEN 15 5 - 27 mg/dL 01/05/2025 6:57 PM [facility] CREATININE 1.16(H) 0.40 - 1.00 mg/dL 01/05/2025 6:57 PM [facility] Comment:METHOD TRACEABLE TO IDNC STANDARD GLUCOSE 136(H) 65 - 99 mg/dL 01/05/2025 6:57 PM [facility] CALCIUM 9.3 8.5 - 10.5 mg/dL 01/05/2025 6:57 PM [facility] TOTAL PROTEIN 6.8 6.0 - 8.0 g/dL 01/05/2025 6:57 PM [facility] ALBUMIN 4.2 3.2 - 5.3 g/dL 01/05/2025 6:57 PM [facility] ALKALINE PHOSPHATASE 102 39 - 130 U/L 01/05/2025 6:57 PM [facility] AST 21 <=41 U/L 01/05/2025 6:57 PM [facility] ALT 21 <=31 U/L 01/05/2025 6:57 PM [facility] BILIRUBIN,TOTAL 0.3 0.3 - 1.2 mg/dL 01/05/2025 6:57 PM [facility] EGFR Non-Race Dependent 48(L) >=60 ml/min/1.7 3sq.m 01/05/2025 6:57 PM [facility] Comment: Reported eGFR is based on the CKD-EPI 2020 equation that does not use a race coefficient. Blood Venous blood / Unknown 01/05/2025 10:55 AM EDT 01/05/2025 10:55 AM EDT us Herb Vergara DO LAB BLOOD ORDERABLES Final R esult [facility] [address] [place] [address], [place] [phone] from Last 3 Months Insurance MEDICARE COMMERCIAL Care Teams Pharmacy Student Relationship Specialty Start Date End Date Herb Vergara DO [address] [facility] [place] [address] PCP - General Family Medicine 11/05/17
--- OUTSIDE RECORDS SUMMARY | 2025-02-18 10:10 | XMS_ITS | Encounter Summary ---
Author Organization [facility] Address [id number] [address] [place] [address] Care Team Providers Care Transit Operations Supervisor Name Role Phone Herb Vergara DO Primary Care Provider [phone] Reason for Visit * Reason Comments Med Refill Encounter Details Date Type Department Care Team (Late st Contact Info) Description 02/01/2022 Refill [facility] [address] [place] [address] Herb Vergara DO [address], [facility] [place] [address] Social History Tobacco Use Types Packs/Day Years Used Date Smoking Tobacco: Never Smokeless Tobacco: Never Alcohol Use Standard Drinks/Week Comments Not Currently 0 (1 standard drink = 0.6 oz pur e alcohol) Childcare Answer Date Recorded Childcare Unknown 11/11/2018 Employment Answer Date Recorded Employment Unknown 11/11/2018 Purpose - Life Answer Date Recorded Purpose and direction in life Unknown Comments No Sex and Gender Information Value Date Recorded Sex Assigned at Not on file Legal Sex Female 11:33 AM EDT Gender Identity Not on file Sexual Orientation Not on file documented as of this encounter Miscellaneous Notes * Telephone Encounter - Herb Vergara DO - 02/01/2022 8:34 PM EDT She is due for medicare wellness/DM at end of March * Telephone Encounter - Feli Lombardi CMA - 02/01/2022 8:34 PM EDT LM to Call back and schedule. documented in this encounter Plan of Treatment Upcoming Encounters Date Type Department Care Team (Late st Contact Info) Description 07/08/2025 10:30 AM EST Office Visit [facility] [address] [place] [id number] Herb Vergara DO [address], [facility] [place] [address] 11/15/2025 1:00 PM EDT Office Visit [facility] [address] [place] [address] documented as of this encounter Visit Diagnoses Not on filedocumented in this encounter Care Teams Transit Operations Supervisor Relationship Specialty Start Date End Date Herb Vergara DO [address] [place] [address] PCP - General Family Medicine 11/05/17 documented as of this encounter
--- OUTSIDE RECORDS SUMMARY | 2025-02-18 10:10 | XMS_ITS | Encounter Summary ---
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 More than 4 times per year 10/31/2022 Do you belong to any clubs o r organizations such as scientology groups, unions, fraternal or athletic groups, or [...] Answer Date Recorded Total Score 0 01/05/2025 [facility] of Occupat ional Health - Occupational Stress [...] Recorded Do you need help finding a [facility] career center and/or a training program? 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
--- OUTSIDE RECORDS SUMMARY | 2025-02-18 10:10 | XMS_ITS | Encounter Summary ---
Author Organization [facility] [employer] [facility] tem Address [id number] [address] [place] [address] Care Team Providers Care Foreign Exchange Services Manager Name Role Phone Herb Vergara DO Primary Care Provider + [phone] Reason for Visit * Reason Comments Med Refill Encounter Details Date Type Department Care Team (Late st Contact Info) Description 12/30/2022 Refill [facility] - Family Medicine [address] [place] [address] Herb Vergara DO [address], [facility] [place] [address] Social History Tobacco Use Types Packs/Day Years [...] often do you attend chur ch or muslim services? More than 4 times per year 10/31/2022 Do you belong to any clubs o r organizations such as pentecostalism groups, unions, fraternal or athletic groups, or [...] Answer Date Recorded Total Score 1 10/31/2022 [facility] of Occupat ional Health - Occupational [...] Recorded Do you need help finding a [facility] career center and/or a training program? No [...] Medicine - Family Medicine [address] [place] [address] Herb Vergara DO [address], [facility] [place] [address] 11/15/2025 1:00 PM EDT Office Visit [facility] - Family Medicine [address] [place] [address] documented as of this encounter Visit Diagnoses Not on filedocumented in this encounter Additional Health Concerns Assessment Noted Time PHQ-9 Depression Total Score: 1 11/01/19 23 12:11 PM EDT documented as of this encounter Care Teams Foreign Exchange Services Manager Relationship Specialty Start Date End Date Herb Vergara DO [address] [place] [address] [place] [address] PCP - General Family Medicine 11/05/17 documented as of this encounter
--- OUTSIDE RECORDS SUMMARY | 2025-02-18 10:10 | XMS_ITS | Encounter Summary ---
Author Organization [facility] Address [facility] [id number] [address] [place] [address] Care Team Providers Care Insurance Claims Analyst Name Role Phone Herb Vergara DO Primary Care Provider [phone] Reason for Visit * Reason Comments Med Refill Encounter Details Date Type Department Care Team (Late st Contact Info) Description 11/26/2022 Refill [facility] Medicine - Family Medicine [address] [place] [address] Herb Vergara DO [address], [place] [address] Allergic rhinitis, unspecified seasonality, unspecified trigger Social History Tobacco Use Types Packs/Day Years [...] How often do you attend chur or quaker services? More than 4 times per year 10/31/2022 Do you belong to any clubs o r organizations such as hoahaoism groups, unions, fraternal or athletic groups, or [...] Answer Date Recorded Total Score 1 10/31/2022 [facility] of Occupat ional Health - Occupational [...] Recorded Do you need help finding a [facility] career center and/or a training [...] - Family Medicine [address] [place] [address] Herb Vergara DO [address] [place] [address] 11/15/2025 1:00 PM EDT Office Visit [facility] - Family Medicine [address] [place] [address] documented as of this encounter Visit Diagnoses Diagnosis Allergic rhinitis, unspecified seasonality, unspecified trigger documented in this encounter Additional Health Concerns Assessment Noted Time PHQ-9 Depression Total Score: 1 11/01/19 23 12:11 PM EDT documented as of this encounter Care Teams Insurance Claims Analyst Relationship Specialty Start Date End Date Herb Vergara DO [address] [facility] [place] [address] PCP - General Family Medicine 11/05/17 documented as of this encounter
--- OUTSIDE RECORDS SUMMARY | 2025-02-18 10:10 | XMS_ITS | Encounter Summary ---
Author Organization [email or web address] Sys tem Address [facility] [place]-[id number] [address] [place] [address] Care Team Providers Care Machine Coil Assembler Name Role Phone Herb Vergara DO Primary Care Provider [phone] Reason for Visit * Reason Comments Med Refill Encounter Details Date Type Department Care Team (Late st Contact Info) Description 06/26/2022 Refill [facility] - Family Medicine [address] [place] [place] [address] Herb Vergara DO [address], [facility] [place] [address] Social History Tobacco Use Types Packs/Day Years [...] have Coronavirus / COVID-19? No / Unsure 06/24/2022 1:27 PM EST documented as of this encounter Plan of Treatment Upcoming Encounters Date Type Department Care Team (Late st Contact Info) Description 07/08/2025 10:30 AM EST Office Visit [facility] - Family Medicine [address] [place] [address] Herb Vergara DO [address] [place] [address] 11/15/2025 1:00 PM EDT Office Visit [facility] - Family Medicine [address] [place] [address] documented as of this encounter Visit Diagnoses Not on filedocumented in this encounter Care Teams Machine Coil Assembler Relationship Specialty Start Date End Date Herb Vergara DO [address] [place] [address] PCP - General Family Medicine 11/05/17 documented as of this encounter
--- OUTSIDE RECORDS SUMMARY | 2025-02-18 10:10 | XMS_ITS | Encounter Summary ---
Author Organization [facility] Address [id number] [address] [place] [address] Care Team Providers Care Marketing Coordinator Name Role Phone Herb Vergara DO Primary Care Provider [phone] Reason for Visit * Reason Comments Med Refill Encounter Details Date Type Department Care Team (Late st Contact Info) Description 08/05/2022 Refill [facility] - Family Medicine [address] [place] [address] Herb Vergara DO [address], [facility] [address] Social History Tobacco Use Types Packs/Day Years Used Date Smoking Tobacco: Never Smokeless Tobacco: Never Alcohol Use Standard Drinks/Week Comments Not Currently 0 (1 standard drink = 0.6 oz pur e alcohol) PHQ-2 Answer Date Recorded Total Score 0 08/05/2022 Childcare Answer Date Recorded Childcare Unknown 11/11/2018 [...] have Coronavirus / COVID-19? No / Unsure 08/05/2022 12:14 PM EST documented as of this encounter Plan of Treatment Upcoming Encounters Date Type Department Care Team (Late st Contact Info) Description 07/08/2025 10:30 AM EST Office Visit [facility] - Family Medicine [address] [place] [address] Herb Vergara DO [address] [place] [address] 11/15/2025 1:00 PM EDT Office Visit [facility] - Family Medicine [address] [place] [address] documented as of this encounter Visit Diagnoses Not on filedocumented in this encounter Additional Health Concerns Assessment Noted Time PHQ-9 Depression Total Score: 0 08/06/19 23 12:26 PM EST documented as of this encounter Care Teams Marketing Coordinator Relationship Specialty Start Date End Date Herb Vergara DO [address] [address] PCP - General Family Medicine 11/05/17 documented as of this encounter
--- OUTSIDE RECORDS SUMMARY | 2025-02-18 10:10 | XMS_ITS | Encounter Summary ---
Author Organization [facility] tem Address [facility] [id number] [address] [place] [address] Care Team Providers Care Solar System Installer Name Role Phone Herb Vergara DO Primary Care Provider [phone] Encounter Details Date Type Department Care Team (Late st Contact Info) Description 04/07/2023 [facility]phone [facility] [address] [place] [address] Herb Vergara DO [address], [facility] [place] [address] Social History Tobacco Use Types Packs/Day Years [...] often do you attend chur ch or samaritan services? More than 4 times per year 10/31/2022 Do you belong to any clubs o r organizations such as anabaptist groups, unions, fraternal or athletic groups, or [...] Answer Date Recorded Total Score 1 10/31/2022 [facility] of Occupat ional Health - [...] Recorded Do you need help finding a [facility] career center and/or a training program? [...] encounter Miscellaneous Notes * Telephone Encounter - Joyce Hurtado - 04/07/2023 3:57 PM EST Barbra has scheduled her screening mammogram. Please put in order. Thanks documented in this encounter Plan of Treatment Upcoming Encounters Date Type Department Care Team (Late st Contact Info) Description 07/08/2025 10:30 AM EST Office Visit [facility] - Family Medicine [address] [place] [address] Herb Vergara DO [address], [facility] [place] [address] 11/15/2025 1:00 PM EDT Office Visit [facility] - Family Medicine [address] [place] [address] documented as of this encounter Visit Diagnoses Not on filedocumented in this encounter Additional Health Concerns Assessment Noted Time PHQ-9 Depression Total Score: 1 11/01/19 23 12:11 PM EDT documented as of this encounter Care Teams Solar System Installer Relationship Specialty Start Date End Date Herb Vergara DO [address] [facility] [place] [address] PCP - General Family Medicine 11/05/17 documented as of this encounter
--- OUTSIDE RECORDS SUMMARY | 2025-02-18 10:10 | XMS_ITS | Encounter Summary ---
Author Organization [employer] s tem Address [facility] [id number] [address] [place] [address] Care Team Providers Care Marine Machinist Name Role Phone Herb Vergara DO Primary Care Provider [phone] Reason for Visit * Reason Comments Med Refill Encounter Details Date Type Department Care Team (Late st Contact Info) Description 02/26/2022 Refill [facility] - Family Medicine [address] [place] [address] Herb Vergara DO [address] [place] [address] Social History Tobacco Use Types Packs/Day Years [...] Medicine - Family Medicine [address] [place] [address] Herb Vergara DO [address] [place] [address] 11/15/2025 1:00 PM EDT Office Visit [facility] - Family Medicine [address] [place] [address] documented as of this encounter Visit Diagnoses Not on filedocumented in this encounter Care Teams Marine Machinist Relationship Specialty Start Date End Date Herb Vergara DO [address] [facility] [place] [address] PCP - General Family Medicine 11/05/17 documented as of this encounter
--- OUTSIDE RECORDS SUMMARY | 2025-02-18 10:10 | XMS_ITS | Encounter Summary ---
Author Organization [facility] tem Address [place]-[id number] [address] [place] [address] Care Team Providers Care Proof Inspector Name Role Phone Herb Vergara DO Primary Care Provider [phone] Encounter Details Date Type Department Care Team (Late st Contact Info) Description 01/06/2025 Results Follow-Up [facility] Internal Medicine - Family Medicine [address] [place] [address] Herb Vergara DO [address], [place] [address] Microalbumin - Albumin: Creatinine Urine Ratio, Vitamin D 25 hydroxy, Uric acid, Additional followed-up results: 7 Social History Tobacco Use Types Packs/Day Years Used Date Smoking Tobacco: Never Smokeless Tobacco: Never Alcohol Use Standard Drinks/Week Comments Not Currently 0 (1 standard drink = 0.6 oz pur e alcohol) [facility] Utilities Answer Date Recorded In the past 12 months has [employer], gas, oil, or water company threatened to [...] often do you attend chur ch or quaker services? More than 4 times [...] Answer Date Recorded Total Score 0 01/05/2025 [facility] of Occupat ional Health - Occupational Stress [...] Recorded Do you need help finding a [facility] career center and/or a training [...] encounter Miscellaneous Notes * Telephone Encounter - Bertha Arnold CMA - 01/06/2025 1:02 PM EDT ----- Message from Herb Vergara DO sent at 01/06/2025 1:04 PM EDT ----- Her A1c was pretty good at 6.9%. Her triglycerides did go up to 224. They were 178. The rest of herlipids were at goal. Continue current regimen for now her kidney tests got a little bit better. Her anemia did improve just slightly. The rest of her chronic kidney disease labs were normal. Continue current regimen ----- Message ----- From: Lab, Background User Sent: 01/05/2025 6:31 PM EDT To: Herb Vergara DO * Telephone Encounter - Bertha Arnold CMA - 01/06/2025 1:02 PM EDT Pt returned our call and I read result note. Pt verbally states she understands. documented in this encounter Plan of Treatment Upcoming Encounters Date Type Department Care Team (Late st Contact Info) Description 07/08/2025 10:30 AM EST Office Visit [facility] - Family Medicine [address] [place] [address] Herb Vergara DO [address], [place] [address] 11/15/2025 1:00 PM EDT Office Visit [facility] - Family Medicine [address] [place] [address] documented as of this encounter Visit Diagnoses Not on filedocumented in this encounter Additional Health Concerns Assessment Noted Time PHQ-9 Depression Total Score: 0 01/06/20 25 9:50 AM EDT A Body Mass Index follow-up plan has been documented for the patient 01/05/2025 12:33 PM EDT documented as of this encounter Care Teams Proof Inspector Relationship Specialty Start Date End Date Herb Vergara DO [address] [facility] [place] [address] PCP - General Family Medicine 11/05/17 documented as of this encounter
--- OUTSIDE RECORDS SUMMARY | 2025-02-18 10:10 | XMS_ITS | Encounter Summary ---
Author Organization [facility] [employer] Sys tem Address [facility] [id number] [address] [place] [address] Care Team Providers Care Machinist General Name Role Phone JaiHerb Heather DE LA GARZA Primary Care Provider + [phone] Encounter Details Date Type Department Care Team (Late st Contact Info) Description 01/07/2025 Telephone [facility] Medicine - Family Medicine [address] [place] [address] Bertha Arnold CMA Social History Tobacco Use Types Packs/Day Years Used Date Smoking Tobacco: Never Smokeless Tobacco: Never Alcohol Use Standard Drinks/Week Comments Not Currently 0 (1 standard drink = 0.6 oz pur e alcohol) [facility] Utilities Answer Date Recorded In the past 12 months has [employer], gas, oil, or water [employer] threatened to shut off services in your [...] often do you attend chur ch or jehovah's witness services? More than 4 times per year 10/31/2022 Do you belong to any clubs o r organizations such as latter day groups, unions, fraternal or athletic groups, or [...] Answer Date Recorded Total Score 0 01/05/2025 [facility] of Occupat ional Health - Occupational Stress [...] Recorded Do you need help finding a [facility] career [facility] and/or a training program? No [...] Medicine - Family Medicine [address] [place] [address] Herb Vergara DO [address] [facility] [place] [address] 11/15/2025 1:00 PM EDT Office Visit [facility] - Family Medicine [address] [place] [address] documented as of this encounter Visit Diagnoses Not on filedocumented in this encounter Additional Health Concerns Assessment Noted Time PHQ-9 Depression Total Score: 0 01/06/20 25 9:50 AM EDT A Body Mass Index follow-up plan has been documented for the patient 01/05/2025 12:33 PM EDT documented as of this encounter Care Teams Machinist General Relationship Specialty Start Date End Date Herb Vergara DO [address] [facility] [place] [address] PCP - General Family Medicine 11/05/17 documented as of this encounter
--- OUTSIDE RECORDS SUMMARY | 2025-02-18 10:10 | XMS_ITS | Encounter Summary ---
Author Organization [facility] Sys tem Address [facility] [id number] [address] [place] [address] Care Team Providers Care Mini Bar Attendant Name Role Phone MarkHerb perez Primary Care Provider [phone] Encounter Details Date Type Department Care Team (Late st Contact Info) Description 02/12/2024 Orders Only [facility] Medicine - Family Medicine [address] [place] [address] Ref Prov, [place] [address] Social History Tobacco Use Types Packs/Day Years Used Date Smoking Tobacco: Never Smokeless Tobacco: Never Alcohol Use Standard Drinks/Week Comments Not Currently 0 (1 standard drink = 0.6 oz pur e alcohol) [facility] Utilities Answer Date Recorded In the past 12 months has [employer], gas, oil, or water [employer] threatened to shut off services in your [...] How often do you attend chur or hoahaoism services? More than 4 times per year 10/31/2022 Do you belong to any clubs o r organizations such as taoist groups, unions, fraternal or athletic groups, or [...] Answer Date Recorded Total Score 0 11/06/2023 [facility] of Occupat ional Health - [...] Recorded Do you need help finding a [facility] career center and/or a training [...] Medicine - Family Medicine [address] [place] [address] Herb Vergara DO [address], [facility] [place] [address] 11/15/2025 1:00 PM EDT Office Visit [facility] - Family Medicine [address] [place] [address] documented as of this encounter Procedures Procedure Name Priority Date/Time Associated Diagnosis Comments XR ABDOMEN AP 1 VW Routine 02/10/2024 8:53 AM EDT documented in this encounter Results * X-ray abdomen ap 1 view (02/10/2024 8:53 AM EDT) Anatomical Region Laterality Modality Body, Abdomen N/A Computed Radiogr aphy us Not In System Ref Prov IMG DIAGNOSTIC IMAGING OR DERABLES Final Result documented in this encounter Visit Diagnoses Not on filedocumented in this encounter Additional Health Concerns Assessment Noted Time PHQ-9 Depression Total Score: 0 11/06/19 24 1:00 PM EDT A Body Mass Index follow-up plan has been documented for the patient 08/29/2023 1:31 PM EDT documented as of this encounter Care Teams Mini Bar Attendant Relationship Specialty Start Date End Date Herb Vergara DO [address], [place] [address] PCP - General Family Medicine 11/05/17 documented as of this encounter
--- OUTSIDE RECORDS SUMMARY | 2025-02-18 10:10 | XMS_ITS | Encounter Summary ---
Author Organization [facility] [employer] s tem Address [facility] [place]-[id number] [address] [place] [address] Care Team Providers Care Hand Bookbinder Name Role Phone MarkHerb perez Primary Care Provider [phone] Encounter Details Date Type Department Care Team (Late st Contact Info) Description 07/10/2022 Telephone [facility] - Family Medicine [address] [place] [address] Myriam Blair CMA Social History Tobacco Use Types Packs/Day Years Used Date Smoking Tobacco: Never Smokeless Tobacco: Never Alcohol Use Standard Drinks/Week Comments Not Currently 0 (1 standard drink = 0.6 oz pur e alcohol) PHQ-2 Answer Date Recorded Total Score 0 07/09/2022 Childcare Answer Date Recorded Childcare Unknown 11/11/2018 [...] have Coronavirus / COVID-19? No / Unsure 07/12/2022 12:01 PM EST documented as of this encounter Miscellaneous Notes * Telephone Encounter - Myriam Blair CMA - 07/10/2022 2:33 PM EST This patient is scheduled Jul 12 at 1:00pm for her EGD for GERD. documented in this encounter Plan of Treatment Upcoming Encounters Date Type Department Care Team (Late st Contact Info) Description 07/08/2025 10:30 AM EST Office Visit [facility] - Family Medicine [address] [place] [address] Herb Vergara DO [address] [place] [address] 11/15/2025 1:00 PM EDT Office Visit [facility] - Family Medicine [address] [place] [address] documented as of this encounter Visit Diagnoses Not on filedocumented in this encounter Additional Health Concerns Assessment Noted Time PHQ-9 Depression Total Score: 0 07/09/19 23 2:54 PM EST documented as of this encounter Care Teams Hand Bookbinder Relationship Specialty Start Date End Date Herb Vergara DO [address] [facility] [place] [address] PCP - General Family Medicine 11/05/17 documented as of this encounter
--- OUTSIDE RECORDS SUMMARY | 2025-02-18 10:10 | XMS_ITS | Encounter Summary ---
Author Organization [facility] Sys tem Address [id number] [address] [place] [address] Care Team Providers Care Snuff Container Inspector Name Role Phone Herb Vergara DO Primary Care Provider [phone] Encounter Details Date Type Department Care Team (Late st Contact Info) Description 10/01/2023 Orders Only [facility] Internal Medicine - Family Medicine [address] [place] [address] Herb Vergara DO [address], [facility] [address] Social History Tobacco Use Types Packs/Day Years [...] often do you attend chur ch or faith services? More than 4 times per year 10/31/2022 Do you belong to any clubs o r organizations such as methodist groups, unions, fraternal or athletic groups, or [...] Answer Date Recorded Total Score 6 09/30/2023 [facility] [place] [facility] - Occupational Stress [...] Recorded Do you need help finding a [facility] career center and/or a training program? [...] Medicine - Family Medicine [address] [place] [address] Herb Vergara DO [address] [facility] [place] [address] 11/15/2025 1:00 PM EDT Office Visit [facility] - Family Medicine [address] [place] [address] documented as of this encounter Visit Diagnoses Not on filedocumented in this encounter Additional Health Concerns Assessment Noted Time PHQ-9 Depression Total Score: 6 09/30/19 24 3:28 PM EDT A Body Mass Index follow-up plan has been documented for the patient 08/29/2023 1:31 PM EDT documented as of this encounter Care Teams Snuff Container Inspector Relationship Specialty Start Date End Date Herb Vergara DO [address] [facility] [place] [address] PCP - General Family Medicine 11/05/17 documented as of this encounter
--- OUTSIDE RECORDS SUMMARY | 2025-02-18 10:10 | XMS_ITS | Encounter Summary ---
Author Organization [facility] s tem Address [id number] [address] [place] [address] Care Team Providers Care Hog Ringer Name Role Phone Herb Vergara DO Primary Care Provider [phone] Reason for Visit * Reason Comments Med Refill Encounter Details Date Type Department Care Team (Late st Contact Info) Description 03/23/2022 Refill [facility] Internal Medicine - Family Medicine [address] [place] [address] Herb Vergara DO [address] [facility] [place] [address] Social History Tobacco Use Types Packs/Day Years [...] Medicine - Family Medicine [address] [place] [address] Herb Vergara DO [address] [place] [address] 11/15/2025 1:00 PM EDT Office Visit [facility] Internal Medicine - Family Medicine [address] [place] [address] documented as of this encounter Visit Diagnoses Not on filedocumented in this encounter Care Teams Hog Ringer Relationship Specialty Start Date End Date Herb Vergara DO [address] [facility] [place] [address] PCP - General Family Medicine 11/05/17 documented as of this encounter
--- OUTSIDE RECORDS SUMMARY | 2025-02-18 10:13 | XMS_ITS | CCD ---
Author Organization [facility] Care Team Providers Care Supervisor Paint Department Name Role Phone MD David Correa Primary Care Provider INDIGO Zamarripa Attending Provider [phone] HERB VERGARA Primary Care Physician JULIO, DR HERB Romero Primary Care Unavailable CECELIA, DR WRIGHT Consulting Unavailable GENTILE, DR WRIGHT Attending Unavailable GENTILE, DR WRIGHT Admitting Unavailable SERG, DR VARGAS Stauffer Consulting Unavailable JR. KASH, JAQUELINE English Attending Unavailmichaela HEWITT JR., GEORGE C Referring Unavaila ble Furlong Herb DE LA GARZA Primary Care Provider HERB VERGARA G Referring Unavailable FURLONG, HERB G Primary Care Unavailable FURLONG, HERB G Referring Unavailable FURLONG, HERB G Primary Care Unavailable FURLONG, HERB G Attending Unavailable FURLONG, HERB G Referring Unavailable FURLONG, HERB G Primary Care Unavailable FURLONG, HERB G Attending Unavailable FURLONG, HERB G Referring Unavailable FURLONG, HERB G Primary Care Unavailable Furlong DOHerb Primary Care Provider HERB VERGARA Attending Unavailable FURLONG, HERB G Referring Unavailable FURLONG, HERB G Primary Care Unavailable FURLONG, HERB G Referring Unavailable FURLONG, HERB G Primary Care Unavailable FURLONG, HERB G Attending Unavailable FURLONG, HERB G Referring Unavailable FURLONG, HERB G Primary Care Unavailable Gavino GENTILE Attending Unavailable Gavino GENTILE Attending Unavailable Allergies Allergy Classification Reported Allergen(s) Allergy Type Date of Onset Reaction(s) Facility (5 sources) Penicillin; Translations: [penicillin] Drug Allergy Unknown (qualifier value) [facility] (13 sources) Adhesive agent; Translations: [ADHESIVE] Drug allergy (disorder) 6 Rash [facility] (6 sources) Penicillins; Translations: [PENICILLINS] Drug allergy (disorder) 5 Swelling, Other (See Comments) [facility] (1 source) Adhesive Tape Allergy to substance 4 [facility] (2 sources) Adhesive agent Propensity to adverse reactions to drug 2 Rash [facility] (2 sources) Penicillins Propensity to adverse reactions to drug 2 Other (See Comments) [facility] (9 sources) Penicillins Propensity to adverse reactions to drug 2 Other (See Comments) [facility] (1 source) Adhesive agent Propensity to adverse reactions to drug 2 Rash [facility] Medications Current Medications Medication Drug Class(es) Dates Sig (Normalized) Sig (Original) 8 hr acetaminophen 650 mg extended release oral tablet (8 sources) take 1 tablet by mouth every eight hours as needed for pain acetaminophen (TYLENOL ARTHRITIS) 650 mg 8 hr tablet Take 1 tablet (650 mg total) by mouth every 8 (eight) hours as needed for pain. 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 Active atorvastatin 40 mg oral tablet (18 sources) HMG-CoA Reductase Inhibitor Start: 024 End: 025 take 1 tablet by mouth in the morning atorvastatin (LIPITOR) 40 mg tablet Indications: Mixed hyperlipidemia TAKE 1 TABLET BY MOUTH IN THE MORNING 90 tablet 1 10/29/2024 Active Start: 09-05-2023 take 40 mg by mouth once daily Atorvastatin Active 40 MG PO Daily September 05, 2023 12:00am Start: 02-08-2022 take 1 mg by mouth once daily Lipitor 20 mg Tab mg tab(s), Oral, Daily, Refills(s) 0 Start Date: 02/08/22 Status: Ordered Repeat number: 1 beta-carotene,A,-vits C,E/mi ns (VISION FORMULA ORAL) (12 sources) beta-carotene,A, -vits C,E/mins (VISION FORMULA ORAL) Take by mouth. Active Calcium Carbonate / vitamin D3 (12 sources) take 600 mg by mouth once daily in the morning calcium carbonate/vitamin D3 (CALCIUM 500 + D ORAL) Take 600 mg by mouth in the morning. Active take 600 mg by mouth once daily calcium carbonate/vitamin D3 (CALCIUM 500 + D ORAL) Take 600 mg by mouth daily. Active cholecalciferol 0.05 mg oral capsule (3 sources) Vitamin D Start: 09-05-2023 End: 07-05-2024 cholecalciferol, vitamin D3, 2,000 units capsule Daily 09/05/2023 07/05/2024 Discontinued (Patient Stopped On Own) Start: 09-05-2023 take 50 ug by mouth once daily Cholecalciferol (Vitamin D3) Active 50 MCG PO Daily September 05, 2023 12:00am Clindamycin (2 sources) Lincosamide Antibacterial Start: 11-01-2019 clindamycin Start Date: 11/01/19 Status: Ordered doxycycline hyclate 100 mg oral capsule (1 source) Tetracycline-class Drug Start: 09-05-2023 take 100 mg by mouth twice daily Doxycycline Hyclate Active 100 MG PO Twice daily 20 10 September 05, 2023 12:00am empagliflozin 10 mg oral tablet (2 sources) Sodium-Glucose Cotransporter 2 Inhibitor Start: 10-03-2023 End: 07-05-2024 take 1 tablet by mouth in the morning empagliflozin (JARDIANCE) 10 mg tablet tablet Indications: Type 2 diabetes mellitus with stage 3b chronic kidney disease, without long-term current use of insulin ([facility]) Take 1 tablet (10 mg total) by mouth in the morning. 90 tablet 3 10/03/2023 07/05/2024 Discontinued (Cost of medication) famotidine 40 mg oral tablet (19 sources) Histamine-2 Receptor Antagonist Start: 12-14-2024 take 0.5 tablet by mouth in the morning, then take 0.5 tablet by mouth at bedtime famotidine (PEPCID) 40 mg tablet Indications: Gastroesophageal reflux disease with esophagitis without hemorrhage Take 0.5 tablets (20 mg total) by mouth in the morning and 0.5 tablets (20 mg total) before bedtime. 180 tablet 1 12/14/2024 Active Start: 03-08-2024 End: 12-14-2024 take 1 tablet by mouth twice daily at bedtime famotidine (PEPCID) 40 mg tablet Indications: Gastroesophageal reflux disease with esophagitis without hemorrhage TAKE 1 TABLET BY MOUTH TWICE DAILY (MORNING AND AT BEDTIME) 180 tablet 12/14/2024 12/14/2024 Discontinued (Reorder) Start: 11-01-2019 Pepcid Start D ate: 11/01/19 Status: Ordered Repeat number: 1 Start: 11-01-2019 Pepcid Start D ate: 11/01/19 Status: Ordered fluticasone propionate 0.05 mg/actuat metered dose nasal spray (12 sources) Corticosteroid Start: 08-05-2022 take 1 spray(s) nasal route in the morning fluticasone propionate (FLONASE) 50 mcg/actuation nasal spray Indications: Allergic rhinitis, unspecified seasonality, unspecified trigger Administer 1 spray into each nostril in the morning. 16 g 2 08/05/2022 Active loratadine 10 mg oral tablet (13 sources) Start: 03-03-2024 take 1 tablet by mouth once daily as needed loratadine (CLARITIN) 10 mg tablet Indications: Allergic rhinitis, unspecified seasonality, unspecified trigger Take 1 tablet (10 mg total) by mouth daily as needed for allergies. 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 ([facility]) Take 1 tablet by mouth once daily 90 tablet 3 11/24/2024 Active Start: 09-05-2023 take 100 mg by mouth once david y Losartan Active 100 MG PO Daily September 05, 2023 12:00am Start: 11-01-2019 Cozaar Oral, D aily Start Date: 11/01/19 Status: Ordered Repeat number: 1 Start: 11-01-2019 Cozaar Oral, D aily Start Date: 11/01/19 Status: Ordered magnesium gluconate 550 mg oral tablet (13 sources) End: 07-05-2024 take 1 tablet by mouth in the morning, then take 1 tablet by mouth at bedtime magnesium 30 mg tablet Take 1 tablet (30 mg total) by mouth in the morning and 1 tablet (30 mg total) before bedtime. Active metoprolol tartrate 25 mg oral tablet (5 sources) beta-Adrenergic Tristin Start: 02-08-2022 take 1 tablet by mouth once daily Lopressor 25 mg oral tablet 25 mg = 1 tab(s), Oral, Daily, Refills(s) 0 Start Date: 02/08/22 Status: Ordered Repeat number: 1 Mupirocin (1 source) RNA Synthetase Inhibitor Antibacterial Start: 09-05-2023 Mupirocin Active 1 APPLIC TOPICAL Three times daily 15 7 September 05, 2023 12:00am pantoprazole 40 mg delayed release oral tablet (20 sources) Proton Pump Inhibitor Start: 05-17-2024 End: 01-20-2025 take 1 tablet by mouth once daily before breakfast pantoprazole (PROTONIX) 40 mg EC tablet Indications: Ulcer of esophagus without bleeding Take 1 tablet (40 mg total) by mouth every morning before breakfast. TAKE 1 TABLET BY MOUTH IN THE MORNING BEFORE BREAKFAST 90 tablet 1 01/20/2025 Active Start: 09-05-2023 Pantoprazole A ctive MG PO September 05, 2023 12:00am Start: 11-01-2019 Protonix Oral, Daily Start Date: 11/01/19 Status: Ordered Repeat number: 1 Start: 11-01-2019 Protonix Oral, Daily Start Date: 11/01/19 Status: Ordered potassium bicarbonate 10 meq effervescent oral tablet (1 source) End: 07-05-2024 potassium bicarb-citric acid (EFFER-K) 10 mEq tablet, effervescent 1 (one) time each day at the same time 07/05/2024 Discontinued (Discontinued by another clinician) potassium citrate 10 meq extended release oral tablet (16 sources) Start: 02-02-2021 take 1 tablet by mouth twice daily potassium CITRATE 10 mEq ER Tab 10 mEq, 1 tab(s), Oral, BID, 180 tab(s), Refill(s) 3, [facility] [id number], 160, cm, 02/12/24 13:13:00 EDT, Height/Length Dosing, 80, kg, 02/12/24 13:13:00 EDT, Weight Dosing Start Date: 02/12/24 Status: Ordered Quantity: 180.0 Unit: tab(s) Repeat number: 4 sertraline 50 mg oral tablet (17 sources) Serotonin Reuptake Inhibitor Start: 04-28-2024 take 1 tablet by mouth once daily sertraline (ZOLOFT) 50 mg tablet Take 1 tablet by mouth once daily 90 tablet 1 04/28/2024 Active Start: 09-05-2023 take 50 mg by mouth once daily Sertraline Active 50 MG PO Daily September 05, 2023 12:00am Start: 11-01-2019 Zoloft Oral, D aily Start Date: 11/01/19 Status: Ordered Repeat number: 1 Start: 11-01-2019 Zoloft Oral, D aily Start Date: 11/01/19 Status: Ordered Problems Active Problems Problem Classification Problem Date Documented Da te Episodic/Chronic Abdominal pain (1 source) Flank pain 02-11-2025 Episodic Calculus of urinary tract (20 sources) Kidney stone; Translations: [Calculus of kidney] Onset: 2 Episodic Cardiac dysrhythmias (13 sources) Multiple premature ventricular complexes; Translations: [Ventricular premature depolarization] Onset: 1 03-04-2022 Chronic Chronic kidney disease (20 sources) Chronic kidney disease stage 3; Translations: [Stage 3 chronic kidney disease] Onset: 8 03-04-2022 Chronic Chronic kidney disease (2 sources) Chronic kidney disease; Translations: [Chronic kidney disease, stage 3b] Onset: 3 Diabetes mellitus with complications (20 sources) Hypertension in chronic kidney disease stage 3 due to type 2 diabetes mellitus; Translations: [Type 2 diabetes mellitus with diabetic chronic kidney disease] Onset: 7 10-14-2022 Chronic Diabetes mellitus without complication (1 source) Diabetes mellitus; Translations: [Type 2 diabetes mellitus without complications] 09-05-2023 Chronic Diabetes mellitus without complication (1 source) Diabetes mellitus without complication 11-24-2024 Disorders of lipid metabolism (17 sources) Hyperlipidemia; Translations: [Hyperlipidemia, unspecified] Onset: 8 03-04-2022 Chronic Diverticulosis and diverticulitis (12 sources) Diverticulosis of sigmoid colon; Translations: [Diverticulosis of large intestine without perforation or abscess without bleeding] Onset: 0 03-04-2022 Chronic Esophageal disorders (20 sources) Gastroesophageal reflux disease; Translations: [Gastro-esophageal reflux disease without esophagitis] Onset: 2 11-01-2019 Chronic Esophageal disorders (1 source) Esophageal disorders; Translations: [Gastro-esophageal reflux disease with esophagitis, without bleeding] Onset: 3 Essential hypertension (19 sources) Hypertensive disorder; Translations: [Essential (primary) hypertension] Onset: 7 11-01-2019 Chronic Gastritis and duodenitis (12 sources) Gastritis; Translations: [Unspecified chronic gastritis without bleeding] Onset: 3 07-12-2022 Chronic Genitourinary symptoms and ill-defined conditions (20 sources) Intermittent urinary incontinence; Translations: [Urge incontinence of urine] Onset: 4 11-01-2019 Chronic Genitourinary symptoms and ill-defined conditions (20 sources) Nocturia; Translations: [Nocturia] Onset: 2 Episodic Heart valve disorders (13 sources) Mitral valve regurgitation; Translations: [Nonrheumatic mitral (valve) insufficiency] Onset: 8 03-04-2022 Chronic Hypertension with complications and secondary hypertension (2 sources) Hypertensive chronic kidney disease with stage 1 through stage 4 chronic kidney disease, or unspecified chronic kidney disease; Translations: [Hypertensive chronic kidney disease with stage 1 through stage 4 chronic kidney disease, or unspecified chronic kidney disease] Onset: 3 Chronic Mood disorders (17 sources) Depressive disorder; Translations: [Mild major depression] Onset: 8 Resolved: 3 11-01-2019 Chronic Neoplasms of unspecified nature or uncertain behavior (3 sources) Neoplasm of uncertain behavior of skin; Translations: [Neoplasm of uncertain behavior of skin] Onset: 5 01-05-2025 Episodic Other and ill-defined heart disease (20 sources) Diastolic dysfunction; Translations: [Other ill-defined heart diseases] Onset: 8 03-04-2022 Chronic Other and ill-defined heart disease (1 source) Other ill-defined heart diseases; Translations: [Other ill-defined heart diseases] Onset: 4 Chronic Other nutritional; endocrine; and metabolic disorders (12 sources) Obesity; Translations: [Obesity, unspecified] Onset: 8 Resolved: 3 10-14-2022 Chronic Other nutritional; endocrine; and metabolic disorders (2 sources) Obesity caused by energy imbalance; Translations: [Class 1 obesity due to excess calories with serious comorbidity and body mass index (BMI) of 31.0 to 31.9 in adult] 07-05-2024 Chronic Other nutritional; endocrine; and metabolic disorders (1 source) Other obesity due to excess calories; Translations: [Other obesity due to excess calories] Onset: 5 Chronic Other nutritional; endocrine; and metabolic disorders (1 source) Body mass index (BMI) 31.0-31.9, adult; Translations: [Body mass index (BMI) 31.0-31.9, adult] Onset: 5 Chronic Other upper respiratory disease (13 sources) Allergic rhinitis; Translations: [Allergic rhinitis, unspecified] Onset: 4 08-29-2023 Chronic Phlebitis; thrombophlebitis and thromboembolism (5 sources) Deep venous thrombosis 11-01-2019 Episodic Spondylosis; intervertebral disc disorders; other back problems (12 sources) Cervical spondylosis; Translations: [Spondylosis without myelopathy or radiculopathy, cervical region] Onset: 9 03-04-2022 Chronic Unclassified (1 source) maw Onset: Unclassified (1 source) Obesity, class 1; Translations: [Obesity, class 1] Onset: Past or Other Problems Problem Classification Problem Date Documented Date Episodic/Chronic Abdominal hernia (12 sources) Gastroesophageal reflux disease with hiatal hernia; Translations: [Diaphragmatic hernia without obstruction or gangrene] Onset: 10-14-2022 10-14-2022 Episodic Cardiac dysrhythmias (13 sources) Bradycardia; Translations: [Bradycardia, unspecified] Onset: 09-30-2023 09-30-2023 Episodic Deficiency and other anemia (14 sources) Iron deficiency anemia; Translations: [Iron deficiency anemia, unspecified] Onset: 09-30-2023 09-05-2023 Episodic Deficiency and other anemia (13 sources) Anemia; Translations: [Anemia, unspecified] Onset: 02-20-2019 03-04-2022 Episodic Deficiency and other anemia (2 sources) Anemia, unspecified; Translations: [Anemia, unspecified] Onset: 03-04-2022 Episodic Gastritis and duodenitis (1 source) Gastritis Onset: 07-12-2022 02-04-2025 Episodic Mood disorders (12 sources) Mood disorders Onset: 11-06-2023 Resolved: 01-05-2025 11-06-2023 Other bone disease and musculoskeletal deformities (12 sources) Osteopenia; Translations: [Other specified disorders of bone density and structure, unspecified site] Onset: 08-14-2017 03-04-2022 Episodic Other infections; including parasitic (12 sources) Personal history of other infectious and parasitic diseases; Translations: [Personal history of other infectious and parasitic diseases] Onset: 02-18-2018 Resolved: 10-14-2022 10-14-2022 Episodic Other screening for suspected conditions (not mental disorders or infectious disease) (4 sources) Patient encounter status; Translations: [Encounter for screening mammogram for malignant neoplasm of breast] Onset: 07-05-2024 07-05-2024 Episodic Residual codes; unclassified (13 sources) Menopause present; Translations: [Asymptomatic menopausal state] Onset: 06-26-2023 06-26-2023 Episodic Unclassified (12 sources) Onset: 08-29-2023 Resolved: 01-05-2025 08-29-2023 Results Test Name Value Interpretation Reference Range Facility Ambulatory Visit Summaryon 0 02-11-2025 Ambulatory Visit Summary Ambulatory Visit Summary BARBRA JAFFE :1945 Visit Date:02/11/2025 Ambulatory Visit Instructions Your Diagnosis Kidney stone Flank pain Urge incontinence Tests Performed US Renal -- Results Pending -- Please visit your patient portal for your results or contact your primary care physician. Your Care Team Attending Physician - Gavino GENTILE MD Primary Care Physician - HERB VERGARA DO This Is Your Medications List potassium citrate (potassium CITRATE 10 mEq ER Tab) Contact prescribing physician if questions or concerns atorvastatin (Lipitor 20 mg Tab) famotidine (Pepcid) losartan (Cozaar) metoprolol (Lopressor 25 mg oral tablet) pantoprazole (Protonix) sertraline (Zoloft) Procedures Performed ESWL (extracorporeal shockwave lithotripsy) of ureteric calculus (06/29/2015), Cystoscopic removal of ureteric stent (04/19/2015), Percutaneous nephrolithotomy (04/06/2015), Removal of calculus of renal pelvis through percutaneous nephrostomy (04/06/2015), Cystoscope (03/09/2015), Abdominal hysterectomy, Bilateral replacement of knee joints, Biopsy of breast, Cystoscope, Cystoscope, Hemorrhoidectomy, Procedure on wrist joint, Replacement of bilateral knee joints. Discharge Vitals Temperature (Temporal Artery) 37 ???C Heart Rate (Peripheral) 68 Respiratory Rate 16 Blood Pressure 130/70 Height 160 cm Height 63 in Weight 78.3 kg Weight 172.622 lb BMI 30.59 What to do next You Need to Schedule the Following Appointments Follow Up with CECELIA MEDINA, Gavino Manjarrez, [facility] When: Where: [address] [place] [address]- Medications What How Much When Instructions Unchanged potassium citrate (potassium CITRATE 10 mEq ER Tab) 1 Tablets By Mouth 2 times a day Unchanged atorvastatin (Lipitor 20 mg Tab) By Mouth Every day Contact prescribing physician if questions or concerns Unchanged famotidine (Pepcid) Contact prescribing physician if questions or concerns Unchanged losartan (Cozaar) By Mouth Every day Contact prescribing physician if questions or concerns Unchanged metoprolol (Lopressor 25 mg oral tablet) 1 Tablets By Mouth Every day Contact prescribing physician if questions or concerns Unchanged pantoprazole (Protonix) By Mouth Every day Contact prescribing physician if questions or concerns Unchanged sertraline (Zoloft) By Mouth Every day Contact prescribing physician if questions or concerns Allergies penicillin (Unknown) Problems Ongoing - Any problem that you are currently receiving treatment for. 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 Please share your experience with us by completing your survey. We appreciate your feedback and thank you for choosing us for your care. Education Materials Dietary Guidelines to Help Prevent Kidney Stones Kidney stones are deposits of minerals and salts that form inside your kidneys. Your risk of developing kidney stones may be greater depending on your diet, your lifestyle, the medicines you take, and whether you have certain medical conditions. Most people can lower their risks of developing kidney stones by following these dietary guidelines. Your dietitian may give you more specific instructions depending on your overall health and the type of kidney stones you tend to develop. What are tips for following this plan? Reading food labels ??? Choose foods with no salt added or low-salt labels. Limit your salt (sodium) intake to less than 1,500 mg a day. ??? Choose foods with calcium for each meal and snack. Try to eat about 300 mg of calcium at each meal. Foods that contain 200???500 mg of calcium a serving include: ? 8 oz (237 mL) of milk, calcium-fortifiednon- dairy milk, and calcium-fortifiedfrui t juice. Calcium-fortified means that calcium has been added to these drinks. ? 8 oz (237 mL) of kefir, yogurt, and soy yogurt. ? 4 oz (114 g) of tofu. ? 1 oz (28 g) of cheese. ? 1 cup (150 g) of dried figs. ? 1 cup (91 g) of cooked broccoli. ? One 3 oz (85 g) can of sardines or mackerel. Most people need 1,000???1,500 mg of calcium a day. Talk to your dietitian about how much calcium is recommended for you. Shopping ??? Buy plenty of fresh fruits and vegetables. Most p (more content not included)... Normal [facility] Urology Office/Clinic Noteon 02-11-2025 Urology Office/Clinic Note Urology Office/Clinic Note Chief Complaint 1 year with [facility] HPI Staff Pt is a 79 year old female here for a 1 year follow up with [facility] DX: Nocturia, Kidney stone urge incontinence Urocit-K 10mEq BID Denies all urinary concerns at this time. Pt states that she does have a constant ache in the left side of her back.. Denies any visible blood at any time. History of Present Illness Tests reviewed: reviewed UA and K[facility]. I have reviewed the previous health record information and history for this patient from AJ[facility] Andrews I have reviewed and verified the staff HPI to be accurate for this encounter. Review of Systems PHQ Score Initial Depression Screen Score: 0 SCORE ROS - Provider Constitutional: denies weight loss, denies hot flashes. Eyes: denies eye problems. Gastrointestinal: denies nausea, denies vomiting. Cardiovascular: denies chest pain or angina. Integumentary: no dryness Musculoskeletal: denies musculoskeletal symptoms. ENMT: denies otolaryngeal symptoms. Respiratory: no shortness of breath. Heme/Lymph: denies easy bleeding tendency, denies easy bruising tendency. Psychiatric: no confusion, no anxiety. Genitourinary: See HPI. Physical Exam Vitals & Measurements T: 37 ???C(Temporal Artery) HR: 68(Peripheral) RR: 16 BP: 130/70 HT: 63 in HT: 160 cm WT: 172.622 lb WT: 78.3 kg BMI: 30.59 General Appearance: alert , no acute distress, well nourished, well developed female. Assessment/Plan Saw AG 02/12/24. 1. Kidney stone (N20.0: Calculus of kidney) S/p ESWL 2015 & PCNL 04/06/2015. Previous image 01/23/21 - a relatively stable 1.2 cm left renal stone. KUB 02/05/22 - left nephrolithiasis, no measurements provided. Hard to visualize due to overlying bowel gas. KUB 02/05/23 - 11.1 mm stone in the lower pole of the Lt kidney KUB 02/10/24 - collection of 3-5 mm stones within inferior pole of left kidney. KUB 02/07/25 TBH - similar clustered stones overlying the LLP. Taking Potassium Citrate 10 mEq BID. Denies passage of stones since prior OV. Pt reports she always has left-sided back pain, it aches a lot . Recommend LEIGHA to rule out obstruction. She is in agreement. -Schedule LEIGHA at [facility], pt to be called with results 2. Flank pain (R10.9: Unspecified abdominal pain) See #1. Unsure if it is musculoskeletal vs from her stones. 3. Urge incontinence (N39.41: Urge incontinence) Prior BBSQ 8. UA today shows small leuks. Does not wear protection. Follow-up With When Contact Information CECELIA MEDINA, Gavino Manjarrez, [place] [address]- Additional Instructions: F/up dependent on LEIGHA results Patient Education Dietary Guidelines to Help Prevent Kidney Stones [place]ie, personally scribed for Dr. Gentile on 02/11/2025 11:03:02. . Documentation recorded by the scribe, Cassie Singh, accurately reflects the services(s) I performed and decisions made by me. Authenticated by Dr. Gentile on 02/11/2025 11:10:11. 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 Hypertensive disorder Iron deficiency anemia Kidney stone Kidney stone Menopause present Microhematuria Microscopic hematuria Multiple premature ventricular complexes Nocturia Ulcer of esophagus Urge incontinence Historical No qualifying data Procedure/Surgical History ESWL (extracorporeal shockwave lithotripsy) of ureteric calculus (06/29/2015), Cystoscopic removal of ureteric stent (04/19/2015), Percutaneous nephrolithotomy (04/06/2015), Removal of calculus of renal pelvis through percutaneous nephrostomy (04/06/2015), Cystoscope (03/09/2015), Abdominal hysterectomy, Bilateral replacement of knee joints, Biopsy of breast, Cystoscope, Cystoscope, Hemorrhoidectomy, Procedure on wrist joint, Replacement of bilateral knee joints. Medications Cozaar, Oral, Daily Lipitor 20 mg Tab, Oral, Daily Lopressor 25 mg oral tablet, 25 mg= 1 tab(s), Oral, Daily Pepcid potassium CITRATE 10 mEq ER Tab, 10 mEq= 1 tab(s), Oral, BID, 3 refills Protonix, Oral, Daily Zoloft, Oral, Daily Allergies penicillin (Unknown) Social History Alcohol - Low Risk, 11/01/2019 Tobacco Never (less than 100 in lifetime) Tobacco Use:. Never Smokeless Tobacco Use:. Household tobacco concerns: No., 02/11/2025 Family History Primary malignant neoplasm of prostate: Father. Lab Results Ambulatory Point of Care Results Bilirubin Urine Dipstick: Negative (02/11/25 10:26:00) Blood Urine Dipstick: Negative (02/11/25 10:26:00) Glucose Urine Dipstick: Negative (0 (more content not included)... Normal [facility] Comment on above: Result Comment: Elec tronically Signed By: Gavino GENTILE MD\.br\Date and Time Signed: 02/11/25 11:10 EDT\.br\Electronically Co-Signed By: Cassie Singh\.br\Date and Time Co-Signed: 02/11/25 11:03 EDT CBC (NO DIFF)on 01-05-2025 Erythrocyte distribution width (RBC) [Ratio] 16.5 % High 11.5-[address] [facility] Comment on above: Performed By: #### C BC #### [facility] ([facility]) [address] [place] [address] VIR Hematocrit (Bld) [Volume fraction] 32.0 % Low 35-[address] [facility] Comment on above: Performed By: #### C BC #### [facility] ([facility]) [address] [place] [address] VIR Hemoglobin (Bld) [Mass/Vol] 10.1 g/dL Low 11.7-15.[address] [facility] Comment on above: Performed By: #### C BC #### [facility] ([facility]) [address] [place] [address] VIR MCH (RBC) [Entitic mass] 25.9 pg Low 27-[address] [facility] Comment on above: Performed By: #### C BC #### [facility] ([facility]) [address] [place] [address] VIR MCHC (RBC) [Mass/Vol] 31.4 g/dL Low 32-[address] [facility] Comment on above: Performed By: #### C BC #### [facility] ([facility]) [address] [place] [address] VIR MCV (RBC) [Entitic vol] 82 fL Normal 80-[address] [facility] Comment on above: Performed By: #### C BC #### [facility] ([facility]) [address] [place] [address] VIR Platelet mean volume (Bld) [Entitic vol] 9.1 fL Normal 7-[address] [facility] Comment on above: Performed By: #### C BC #### [facility] ([facility]) [address] [place] [address] VIR Platelets (Bld) [#/Vol] 284 10*3/uL Normal 150-[address] [facility] Comment on above: Performed By: #### C BC #### [facility] ([facility]) [address] [place] [address] VIR RBC COUNT 3.89 X10E12/L Normal 3.8-5.[address] [facility] Comment on above: Performed By: #### C BC #### [facility] ([facility]) [address] [place] [address] VIR WBC (Bld) [#/Vol] 8.6 10*3/uL Normal 4-11 [facility] Comment on above: Performed By: #### C BC #### [facility] ([facility]) [address] [place] [address] VIR COMPREHENSIVE METABOLIC PANE Camilo 01-05-2025 Albumin [Mass/Vol] 4.2 g/dL Normal 3.2-5.3 [facility] Comment on above: Performed By: #### C MP #### [facility] ([facility]) [address] [place] [address] VIR ALP [Catalytic activity/Vol] 102 U/L Normal 39-[address] [facility] Comment on above: Performed By: #### C MP #### [facility] ([facility]) [address] [place] [address] VIR ALT [Catalytic activity/Vol] 21 U/L Normal <=[address] [facility] Comment on above: Performed By: #### C MP #### [facility] ([facility]) [address] [place] [address] VIR Anion gap [Moles/Vol] 13 mmol/L Normal 5-[address] [facility] Comment on above: Performed By: #### C MP #### [facility] ([facility]) [address] [place] [address] VIR AST [Catalytic activity/Vol] 21 U/L Normal <=[address] [facility] Comment on above: Performed By: #### C MP #### [facility] ([facility]) [address] [place] [address] VIR Bilirubin [Mass/Vol] 0.3 mg/dL Normal 0.3-1.[address] [facility] Comment on above: Performed By: #### C MP #### [facility] ([facility]) [address] [place] [address] VIR Calcium [Mass/Vol] 9.3 mg/dL Normal 8.5-10.5 [facility] Comment on above: Performed By: #### C MP #### [facility] ([facility]) [address] [place] [address] VIR Chloride [Moles/Vol] 105 mmol/L Normal 98-[address] [facility] Comment on above: Performed By: #### C MP #### [facility] ([facility]) [address] [place] [address] VIR CO2 [Moles/Vol] 23 mmol/L Normal 22-[address] [facility] Comment on above: Performed By: #### C MP #### [facility] ([facility]) [address] [place] [address] VIR Creatinine [Mass/Vol] 1.16 mg/dL High 0.40-1.[address] [facility] Comment on above: Result Comment: METH OD TRACEABLE TO IDMS STANDARD Performed By: #### C MP #### [facility] ([facility]) [address] [place] [address] VIR GFR/1.73 sq M.predicted among non-blacks MDRD (S/P/Bld) [Vol rate/Area] 48 mL/min/{1.73_m2} Low >=[address] [facility] Comment on above: Result Comment: Repo rted eGFR is based on the CKD-EPI 2020 equation that does not use a race coefficient. Performed By: #### C MP #### [facility] ([facility]) [address] [place] [address] VIR Glucose [Mass/Vol] 136 mg/dL High 65-99 [facility] Comment on above: Performed By: #### C MP #### [facility] ([facility]) [address] [place] [address] VIR Potassium [Moles/Vol] 4.6 mmol/L Normal 3.5-5.[address] [facility] Comment on above: Performed By: #### C MP #### [facility] ([facility]) [address] [place] [address] VIR Protein [Mass/Vol] 6.8 g/dL Normal 6.0-8.0 [facility] Comment on above: Performed By: #### C MP #### [facility] ([facility]) [address] [place] [address] VIR Sodium [Moles/Vol] 141 mmol/L Normal 134-146 [facility] Comment on above: Performed By: #### C MP #### [facility] ([facility]) [address] [place] [address] VIR Urea nitrogen [Mass/Vol] 15 mg/dL Normal 5-[address] [facility] Comment on above: Performed By: #### C MP #### [facility] ([facility]) [address] [place] [address] VIR HEMOGLOBIN A1Con 01-05-2025 Glucose [Mass/Vol] 151 mg/dL Normal [facility] Comment on above: Performed By: #### H A1C #### [facility] ([facility]) [address] [place] [address] VIR HbA1c (Bld) [Mass fraction] 6.9 % High 4.4-5.[address] [facility] Comment on above: Result Comment: ADA Guidelines Result HgbA1c Normal : less than 5.7 % Prediabetes : 5.7 % to 6.4 % Diabetes : > 6.4 % Use with caution in patients with abnormal hemoglobin variants as the half-life of red blood cells and in vivo glycation rates are affected. Performed By: #### H A1C #### [facility] ([facility]) [address] [place] [address] VIR LIPID PROFILEon 01-05-2025 Cholesterol [Mass/Vol] 149 mg/dL Low 150-[address] [facility] Comment on above: Performed By: #### L IPR #### [facility] ([facility]) [address] [place] [address] VIR Cholesterol in HDL [Mass/Vol] 49 mg/dL Normal >[address] [facility] Comment on above: Result Comment: HDL <40 mg/dL - High Risk HDL > or = 40mg/dL- Desirable HDL >60 mg/dL - Negative Risk Performed By: #### L IPR #### [facility] ([facility]) [address] [place] [address] VIR Cholesterol in LDL [Mass/Vol] 55 mg/dL Normal <[address] [facility] Comment on above: Result Comment: LDL <100 mg/dL - Desirable LDL >160 mg/dL - High Risk Performed By: #### L IPR #### [facility] ([facility]) [address] [place] [address] VIR CHOLESTEROL:HDL 3.0 Normal 1.0-5.[address] [facility] Comment on above: Performed By: #### L IPR #### [facility] ([facility]) [address] [place] [address] VIR Triglyceride [Mass/Vol] 224 mg/dL High 27-[address] [facility] Comment on above: Performed By: #### L IPR #### [facility] ([facility]) [address] [place] [address] VIR VERY LOW LIPOPROTEIN 45 mg/dL High 0-[address] [facility] Comment on above: Performed By: #### L IPR #### [facility] ([facility]) [address] [place] [address] VIR MAGNESIUMon 01-05-2025 Magnesium [Mass/Vol] 2.0 mg/dL Normal 1.8-2.[address] [facility] Comment on above: Performed By: #### M G #### [facility] ([facility]) [address] [place] [address] VIR MICROALBUMIN / CREATININE UR INE RATIOon 01-05-2025 Albumin DL <= 20 mg/L (U) [Mass/Vol] 2.4 mg/dL High 0.0-1.[address] [facility] Comment on above: Performed By: #### M ALBU #### [facility] ([facility]) [address] [place] [address] VIR MALB/CREAT RATIO 16.0 mg/g Normal 0.0-30.0 [facility] Comment on above: Performed By: #### M NUHAU #### [facility] ([facility]) [address] [place] [address] VIR URINE CREATININE,RDM 149.95 mg/dL Normal [facility] Comment on above: Performed By: #### M MATTY #### [facility] ([facility]) [address] [place] [address] VIR PARATHYROID HORMOME, INTACTo n 01-05-2025 PTH INTACT 68 pg/mL Normal 12-[address] [facility] Comment on above: Performed By: #### P TH #### [facility] ([facility]) [address] [place] [address] VIR PHOSPHORUSon 01-05-2025 Phosphate [Mass/Vol] 2.8 mg/dL Normal 2.4-4.[address] [facility] Comment on above: Performed By: #### P HOS #### [facility] ([facility]) [address] [place] [address] VIR URIC ACIDon 01-05-2025 Urate [Mass/Vol] 5.1 mg/dL Normal 2.6-7.2 [facility] Comment on above: Performed By: #### U GILBERT #### [facility] ([facility]) [address] [place] [address] VIR VITAMIN D 25 HYDROXYon 01-05 VITAMIN D 25 HYD TOT 37.7 ng/mL Normal 30.0-100.[address] [facility] Comment on above: Order Comment: Vitam in D status 25 [place] Vitamin D Deficiency <20 ng/mL Insufficiency 20-29 ng/mL Sufficiency 30-100 ng/mL Toxicity >100 ng/mL NOTE: A pediatric reference range has not been established by the culinary manager of this kit. The [place] [employer] recommends a Vitamin D level of = or >20ng/mL in infants and children. Performed By: #### V ITD #### [facility] ([facility]) [address] [place] [address] VIR MAMM SCREENING BILATERAL W C traffic court referee 07-26-2024 MAMM SCREENING BILATERAL W CAD MAMM SCREENING BILATERAL W CAD BARBRA JOY 1945 [id number] EXAM: MAMM SCREENING BILATERAL W CAD, 07/23/2024 12:57 PM CLINICAL INDICATIONS: Screening, Encounter for screening mammogram for malignant neoplasm of breast COMPARISON: Multiple prior mammograms were viewed for comparison dating back to 03/03/2020 TECHNIQUE: Bilateral digital tomosynthesis MLO and CC views of the breasts were obtained, with creation of synthetic 2D views. Computer aided detection was utilized. FINDINGS: There are scattered areas of fibroglandular density. There are no suspicious masses, calcifications, or areas of architectural distortion. IMPRESSION: No mammographic evidence of malignancy. BI-RADS: BI-RADS 1 - Negative RECOMMENDATION: Routine screening mammogram in 1 year. RISK ASSESSMENT: TC Lifetime risk: 2.5%. The patient's reported personal and family medical history was used calculate their Tyrer-Cuzick lifetime risk of malignancy. Scores less than 20% are not considered high risk per ACR guidelines and patient should continue with the above recommendation. Finalized by Brooke Diaz MD on 07/26/2024 10:09 AM 1 b MAMM 1 YR Normal [facility] BASIC METABOLIC PANLon 07-05 Anion gap [Moles/Vol] 12 mmol/L Normal 5-15 [facility] Comment on above: Performed By: #### C BC, CMP, 22365-6, 32534-8, 2777-1, 3084-1, 2731-8, 09744-1 #### [facility] ([id number]) [address] [place] [address] Calcium [Mass/Vol] 9.4 mg/dL Normal 8.5-10.5 [facility] Comment on above: Performed By: #### C BC, CMP, 09873-5, 28849-1, 2777-1, 3084-1, 2731-8, 09383-6 #### [facility] ([id number]) [address] [place] [address] Chloride [Moles/Vol] 103 mmol/L Normal 98-109 [facility] Comment on above: Performed By: #### C BC, CMP, 56818-7, 32358-6, 2777-1, 3084-1, 2731-8, 02824-5 #### [facility] ([id number]) [address] [place] [address] CO2 [Moles/Vol] 25 mmol/L Normal 22-32 [facility] Comment on above: Performed By: #### C BC, CMP, 03484-2, 93561-0, 2777-1, 3084-1, 2731-8, 67703-3 #### [facility] ([id number]) [address] [place] [address] Creatinine [Mass/Vol] 1.20 mg/dL High 0.40-1.00 [facility] Comment on above: Result Comment: METH OD TRACEABLE TO IDMS STANDARD Performed By: #### C BC, CMP, 78476-8, 07573-6, 2777-1, 3084-1, 2731-8, 81322-6 #### [facility] ([id number]) [address] [place] [address] GFR/1.73 sq M.predicted among non-blacks MDRD (S/P/Bld) [Vol rate/Area] 47 mL/min/{1.73_m2} Low >59 [facility] Comment on above: Result Comment: Reported eGFR is based on the CKD-EPI 2020 equation that does not use a race coefficient. Performed By: #### C BC, CMP, 07468-3, 78652-2, 2777-1, 3084-1, 2731-8, 05470-8 #### [facility] ([id number]) [address] [place] [address] Glucose [Mass/Vol] 132 mg/dL High 65-99 [facility] Comment on above: Performed By: #### C BC, CMP, 02899-7, 24437-1, 2777-1, 3084-1, 2731-8, 55384-6 #### [facility] ([id number]) [address] [place] [address] Potassium [Moles/Vol] 4.4 mmol/L Normal 3.5-5.0 [facility] Comment on above: Performed By: #### C BC, CMP, 66753-1, 73785-7, 2777-1, 3084-1, 2731-8, 64495-6 #### [facility] ([id number]) [address] [place] [address] Sodium [Moles/Vol] 140 mmol/L Normal 134-146 [facility] Comment on above: Performed By: #### C BC, CMP, 52429-6, 76750-7, 2777-1, 3084-1, 2731-8, 29217-0 #### [facility] ([id number]) [address] [place] [address] Urea nitrogen [Mass/Vol] 20 mg/dL Normal 5-27 [facility] Comment on above: Performed By: #### C BC, CMP, 81527-1, 98204-7, 2777-1, 3084-1, 2731-8, 14794-4 #### [facility] ([id number]) [address] [place] [address] COMPLETE BLOOD COUNTon 07-05 Erythrocyte distribution width (RBC) [Ratio] 18.0 % High 11.5-15.0 [facility] Comment on above: Performed By: #### C PRAKASH WARD, 3015-08, HA1C #### [facility] ([id number]) [address] [place] [address] Hematocrit (Bld) [Volume fraction] 31.5 % Low 35-47 [facility] Comment on above: Performed By: #### C PRAKASH WARD, 3015-08, HA1C #### [facility] ([id number]) [address] [place] [address] Hemoglobin (Bld) [Mass/Vol] 9.9 g/dL Low 11.7-15.5 [facility] Comment on above: Performed By: #### C PRAKASH WARD, 3015-08, HA1C #### [facility] ([id number]) [address] [place] [address] MCH (RBC) [Entitic mass] 26.0 pg Low 27-34 [facility] Comment on above: Performed By: #### C PRAKASH WARD, 3015-08, HA1C #### [facility] ([id number]) [address] [place] [address] MCHC (RBC) [Mass/Vol] 31.4 g/dL Low 32-36 [facility] Comment on above: Performed By: #### PRAKASH CRUZ, 3015-08, HA1C #### [facility] ([id number]) [address] [place] [address] MCV (RBC) [Entitic vol] 83 fL Normal 80-100 [facility] Comment on above: Performed By: #### PRAKASH CRUZ, 3015-08, HA1C #### [facility] ([id number]) [address] [place] [address] Platelet mean volume (Bld) [Entitic vol] 9.5 fL Normal 7-12 [facility] Comment on above: Performed By: #### C ED, BMP, 3015-3, HA1C #### [facility] ([id number]) [address] [place] [address] Platelets (Bld) [#/Vol] 267 10*3/uL Normal 150-450 [facility] Comment on above: Performed By: #### Amador BC, BMP, 3015-3, HA1C #### [facility] ([id number]) [address], [facility] [address] [place] [address] RBC COUNT 3.81 X10E12/L Normal 3.80-5.20 [facility] Comment on above: Performed By: #### Amador WARD, BMP, 3015-08, HA1C #### [facility] ([id number]) [address], [facility] [address] [place] [address] WBC (Bld) [#/Vol] 7.1 10*3/uL Normal 4.0-11.0 [facility] Comment on above: Performed By: #### Amador WARD, [facility], 3, HA1C #### [facility] ([id number]) [address] [place] [address] HGB A1C (GLYCO-HGB)on 2024 Glucose [Mass/Vol] 157 mg/dL Normal [facility] Comment on above: Performed By: #### C ED, [facility], 79282-9, 92463-2, 2777-1, 3084-1, 2731-8, 41761-2 #### [facility] ([id number]) [address] [place] [address] HbA1c (Bld) [Mass fraction] 7.1 % High 4.4-5.6 [facility] Comment on above: Result Comment: NOTE ADA Guidelines Result HgbA1c Normal : less than 5.7 % Prediabetes : 5.7 % to 6.4 % Diabetes : > 6.4 % Use with caution in patients with abnormal hemoglobin variants as the half-life of red blood cells and in vivo glycation rates are affected. Performed By: #### C BC, CMP, 29086-6, 72401-8, 2777-1, 3084-1, 2731-8, 04352-7 #### [facility] ([id number]) [address] [place] [address] TSH Qnon 07-05-2024 TSH 0.71 uIU/mL Normal 0.49-4.67 [facility] Comment on above: Performed By: #### C ED, CMP, 38023-6, 60640-2, 2777-1, 3084-1, 2731-8, 89068-6 #### [facility] ([id number]) [address], [facility] [address] [place] [address] COMPLETE BLOOD COUNTon 08-28 Erythrocyte distribution width (RBC) [Ratio] 15.5 % High 11.5-15.0 [facility] Comment on above: Performed By: #### C ED, CMP, 42632-7, 00420-9, 2777-1, 3084-1, 2731-8, 19099-0 #### [facility] ([id number]) [address], [address] [place] [address] Hematocrit (Bld) [Volume fraction] 32.6 % Low 35-47 [facility] Comment on above: Performed By: #### C BC, CMP, 56404-9, 95740-8, 2777-1, 3084-1, 2731-8, 26473-6 #### [facility] ([id number]) [address] [facility] [place] [address] Hemoglobin (Bld) [Mass/Vol] 10.4 g/dL Low 11.7-15.5 [facility] Comment on above: Performed By: #### C BC, CMP, 61541-2, 53625-8, 2777-1, 3084-1, 2731-8, 90683-9 #### [facility] ([id number]) [address], [facility] [address] [place] [address] MCH (RBC) [Entitic mass] 27.6 pg Normal 27-34 [facility] Comment on above: Performed By: #### C BC, CMP, 31123-7, 15305-6, 2777-1, 3084-1, 2731-8, 06308-7 #### [facility] ([id number]) [address] [address] [place] [address] MCHC (RBC) [Mass/Vol] 31.8 g/dL Low 32-36 [facility] Comment on above: Performed By: #### Amador BC, CMP, 76891-6, 17632-2, 2777-1, 3084-1, 2731-8, 31341-9 #### [facility] ([id number]) [address] [address] [place] [address] MCV (RBC) [Entitic vol] 87 fL Normal 80-100 [facility] Comment on above: Performed By: #### C BC, CMP, 49619-3, 40682-2, 2777-1, 3084-1, 2731-8, 32229-9 #### [facility] ([id number]) [address], [facility] [address] [place] [address] Platelet mean volume (Bld) [Entitic vol] 9.3 fL Normal 7-12 [facility] Comment on above: Performed By: #### C BC, CMP, 12240-5, 07783-1, 2777-1, 3084-1, 2731-8, 39146-7 #### [facility] ([id number]) [address] [address] [place] [address] Platelets (Bld) [#/Vol] 226 10*3/uL Normal 150-450 [facility] Comment on above: Performed By: #### C BC, CMP, 14210-2, 97319-7, 2777-1, 3084-1, 2731-8, 94714-2 #### [facility] ([id number]) [address] [facility] [place] [address] RBC COUNT 3.75 X10E12/L Low 3.80-5.20 [facility] Comment on above: Performed By: #### C BC, CMP, 08058-1, 71778-4, 2777-1, 3084-1, 2731-8, 33639-9 #### [facility] ([id number]) [address] [facility], [address] [place] [address] WBC (Bld) [#/Vol] 7.2 10*3/uL Normal 4.0-11.0 [facility] Comment on above: Performed By: #### C BC, CMP, 10885-0, 08981-0, 2777-1, 3084-1, 2731-8, 82463-9 #### [facility] ([id number]) [address] [facility], [address] [place] [address] COMPREHENSIVE METABOLIC PANE Camilo 08-29-2023 Albumin [Mass/Vol] 4.0 g/dL Normal 3.2-5.3 [facility] Comment on above: Performed By: #### C BC, CMP, 06572-9, 64679-4, 2777-1, 3084-1, 2731-8, 89340-5 #### [facility] ([id number]) [address] [facility], [address] [place] [address] ALP [Catalytic activity/Vol] 96 U/L Normal 39-130 [facility] Comment on above: Performed By: #### C BC, CMP, 78668-6, 44360-9, 2777-1, 3084-1, 2731-8, 47094-6 #### [facility] ([id number]) [address], [address] [place] [address] ALT [Catalytic activity/Vol] 15 U/L Normal 0-31 [facility] Comment on above: Performed By: #### C BC, CMP, 64193-9, 21502-5, 2777-1, 3084-1, 2731-8, 66525-8 #### [facility] ([id number]) [address], [address] [place] [address] Anion gap [Moles/Vol] 10 mmol/L Normal 5-15 [facility] Comment on above: Performed By: #### C BC, CMP, 37752-8, 78752-4, 2777-1, 3084-1, 2731-8, 71115-6 #### [facility] ([id number]) [address], [address] [place] [address] AST [Catalytic activity/Vol] 14 U/L Normal 0-41 [facility] Comment on above: Performed By: #### C BC, CMP, 63379-8, 33244-5, 2777-1, 3084-1, 2731-8, 63875-5 #### [facility] ([id number]) [address], [address] [place] [address] Bilirubin [Mass/Vol] 0.4 mg/dL Normal 0.3-1.2 [facility] Comment on above: Performed By: #### C BC, CMP, 77837-1, 68389-4, 2777-1, 3084-1, 2731-8, 24942-4 #### [facility] ([id number]) [address], [address] [place] [address] Calcium [Mass/Vol] 9.6 mg/dL Normal 8.5-10.5 [facility] Comment on above: Performed By: #### C BC, CMP, 35527-2, 20659-4, 2777-1, 3084-1, 2731-8, 01072-4 #### [facility] ([id number]) [address], [address] [place] [address] Chloride [Moles/Vol] 106 mmol/L Normal 98-109 [facility] Comment on above: Performed By: #### C ED, CMP, 09338-1, 15149-3, 2777-1, 3084-1, 2731-8, 83151-4 #### [facility] ([id number]) [address], [address] [place] [address] CO2 [Moles/Vol] 28 mmol/L Normal 22-32 [facility] Comment on above: Performed By: #### C ED, CMP, 48746-6, 82015-8, 2777-1, 3084-1, 2731-8, 42336-6 #### [facility] ([id number]) [address], [address] [place] [address] Creatinine [Mass/Vol] 1.23 mg/dL High 0.40-1.00 [facility] Comment on above: Result Comment: METH OD TRACEABLE TO IDMS STANDARD Performed By: #### C ED, CMP, 03087-2, 43614-7, 2777-1, 3084-1, 2731-8, 35469-3 #### [facility] ([id number]) [address], [address] [place] [address] GFR/1.73 sq M.predicted among non-blacks MDRD (S/P/Bld) [Vol rate/Area] 46 mL/min/{1.73_m2} Low >59 [facility] Comment on above: Result Comment: Reported eGFR is based on the CKD-EPI 2020 equation that does not use a race coefficient. Performed By: #### C BC, CMP, 81761-2, 52147-2, 2777-1, 3084-1, 2731-8, 18719-0 #### [facility] ([id number]) [address], [address] [place] [address] Glucose [Mass/Vol] 126 mg/dL High 65-99 [facility] Comment on above: Performed By: #### C BC, CMP, 01088-9, 16020-9, 2777-1, 3084-1, 2731-8, 86999-3 #### [facility] ([id number]) [address], [address] [place] [address] Potassium [Moles/Vol] 4.7 mmol/L Normal 3.5-5.0 [facility] Comment on above: Performed By: #### C BC, CMP, 66407-3, 49868-6, 2777-1, 3084-1, 2731-8, 65904-0 #### [facility] ([id number]) [address], [address] [place] [address] Protein [Mass/Vol] 6.4 g/dL Normal 6.0-8.0 [facility] Comment on above: Performed By: #### Amador BC, CMP, 10036-8, 86464-9, 2777-1, 3084-1, 2731-8, 40276-8 #### [facility] ([id number]) [address], [address] [place] [address] Sodium [Moles/Vol] 144 mmol/L Normal 134-146 [facility] Comment on above: Performed By: #### Amador BC, CMP, 83787-8, 29669-0, 2777-1, 3084-1, 2731-8, 93866-2 #### [facility] ([id number]) [address], [address] [place] [address] Urea nitrogen [Mass/Vol] 22 mg/dL Normal 5-27 [facility] Comment on above: Performed By: #### Amador BC, CMP, 32840-9, 43806-4, 2777-1, 3084-1, 2731-8, 91114-8 #### [facility] ([id number]) [address] [facility] [place] [address] HGB A1C (GLYCO-HGB)on 2023 Glucose [Mass/Vol] 154 mg/dL Normal [facility] Comment on above: Performed By: #### Amador BC, CMP, 82138-3, 23396-9, 2777-1, 3084-1, 2731-8, 30123-3 #### [facility] ([id number]) [address] [facility], [facility] [address] [place] [address] HbA1c (Bld) [Mass fraction] 7.0 % High 4.4-5.6 [facility] Comment on above: Result Comment: NOTE ADA Guidelines Result HgbA1c Normal : less than 5.7 % Prediabetes : 5.7 % to 6.4 % Diabetes : > 6.4 % Use with caution in patients with abnormal hemoglobin variants as the half-life of red blood cells and in vivo glycation rates are affected. Performed By: #### C BC, CMP, 78677-6, 66609-8, 2777-1, 3084-1, 2731-8, 64616-0 #### [facility] ([id number]) [address] [facility], [facility] [address] [place] [address] Lipid 1996 panelon Cholesterol [Mass/Vol] 151 mg/dL Normal 150-200 [facility] Comment on above: Performed By: #### Amador BC, CMP, 38070-7, 07585-4, 2777-1, 3084-1, 2731-8, 58591-9 #### [facility] ([id number]) [address] [facility], [address] [place] [address] Cholesterol in HDL [Mass/Vol] 50 mg/dL Normal >39 [facility] Comment on above: Result Comment: HDL <40 mg/dL - High Risk HDL > or = 40mg/dL- Desirable HDL >60 mg/dL - Negative Risk Performed By: ###Demar English BC, CMP, 89962-8, 29021-4, 2777-1, 3084-1, 2731-8, 16231-2 #### [facility] ([id number]) [address], [address] [place] [address] Cholesterol in LDL [Mass/Vol] 65 mg/dL Normal <130 [facility] Comment on above: Result Comment: LDL <100 mg/dL - Desirable LDL >160 mg/dL - High Risk Performed By: ###Demar Enlgish BC, CMP, 38012-4, 28050-6, 2777-1, 3084-1, 2731-8, 37381-1 #### [facility] ([id number]) [address], [address] [place] [address] Cholesterol in VLDL [Mass/Vol] 36 mg/dL High 0-30 [facility] Comment on above: Performed By: ###Demar WARD, CMP, 22212-5, 69666-6, 2777-1, 3084-1, 2731-8, 63219-0 #### [facility] ([id number]) [address], [address] [place] [address] CHOLESTEROL:HDL 3.0 Normal 1.0-5.0 [facility] Comment on above: Performed By: ###Demar English BC, CMP, 72810-1, 57997-0, 2777-1, 3084-1, 2731-8, 28924-7 #### [facility] ([id number]) [address], [address] [place] [address] Triglyceride [Mass/Vol] 178 mg/dL High 27-150 [facility] Comment on above: Performed By: #### C BC, CMP, 88158-9, 08180-8, 2777-1, 3084-1, 2731-8, 21366-6 #### [facility] ([id number]) [address], [address] [place] [address] MAGNESIUMon 08-29-2023 Magnesium [Mass/Vol] 1.7 mg/dL Low 1.8-2.6 [facility] Comment on above: Performed By: #### C BC, CMP, 29624-0, 38195-4, 2777-1, 3084-1, 2731-8, 01992-7 #### [facility] ([id number]) [address], [address] [place] [address] PHOSPHORUSon 08-29-2023 Phosphate [Mass/Vol] 3.8 mg/dL Normal 2.4-4.9 [facility] Comment on above: Performed By: #### C BC, CMP, 45310-0, 05501-3, 2777-1, 3084-1, 2731-8, 61337-9 #### [facility] ([id number]) [address], [address] [place] [address] Parathyrin.intact [Mass/Vol] on 08-29-2023 PTH INTACT 70 pg/mL Normal 12-88 [facility] Comment on above: Performed By: #### C BC, CMP, 36212-3, 70564-0, 2777-1, 3084-1, 2731-8, 94309-1 #### [facility] ([id number]) [address], [address] [place] [address] URIC ACIDon 08-29-2023 Urate [Mass/Vol] 5.6 mg/dL Normal 2.6-7.2 [facility] Comment on above: Performed By: #### C BC, CMP, 33579-6, 54808-8, 2777-1, 3084-1, 2731-8, 04843-0 #### [facility] ([id number]) [address] [place] [address], [address] [place] [address] Vitamin D+Metabolites [Mass/ Vol]on 08-29-2023 VITAMIN D 25 HYD TOT 42.6 ng/mL Normal 30-100 [facility] Comment on above: Result Comment: Vitamin D status 25 [place] Vitamin D Deficiency <20 ng/mL Insufficiency 20-29 ng/mL Sufficiency 30-100 ng/mL Toxicity >100 ng/mL NOTE: A pediatric reference range has not been established by the culinary manager of this kit. The [place] [employer] [employer] recommends a Vitamin D level of = or >20ng/mL in infants and children. Performed By: #### C , [facility], 43105-7, 81114-3, 2777-1, 3084-1, 2731-8, 12983-1 #### [facility] ([id number]) [address] [place] [address], [address] [place] [address] XR KUB 1 VIEWon 02-05-2022 XR KUB 1 VIEW EXAMINATION: XR KUB 1 VIEW HISTORY: Kidney stone COMPARISON: 01/23/2021 FINDINGS: KIDNEY/URETER - RIGHT: No visible renal or ureteral calcifications. KIDNEY/URETER - LEFT: Left nephrolithiasis PELVIS: No visible ureteral calcifications. Any visible calcifications favor phleboliths. BOWEL: No abnormal dilation or deviation. BONES: No acute abnormality. OTHER: Negative. No abnormal gaseous collections. IMPRESSION: Left nephrolithiasis Electronically authenticated by: VARGAS LURICH Date: 2022-02-05 19:57 Normal [facility] XR wrist LT min 3V*on 2021 XR wrist LT min 3V* [facility] Main [place] [address] [place] [address] XRay Report Signed Patient: Barbra Jaffe MR#: [id number] : 1945 Acct:[id number] Age/Sex: 76 / F ADM Date: 11/27/21 Loc: XDUCLY Room: Type: [facility] Attending Dr: Anitha SOOD Copies to: [facility] [place] Ordering Provider: [facility] [place] Date of Service: 11/27/21 XR/XR wrist LT min 3V*: LEFT WRIST PAIN LEFT WRIST - 4 views CLINICAL HISTORY: Fall 2 days ago now with left wrist pain and swelling COMPARISON: None FINDINGS: Soft tissue swelling. No radiopaque foreign body. There appears to be a likely intra-articular fracture involving the styloid process of the radius. Distal ulna appears intact. Carpus demonstrates degenerative changes most severe involving the CMC joint of the thumb. XR/XR wrist LT min 3V* IMPRESSION: LIKELY INTRA-ARTICULAR FRACTURE INVOLVING THE STYLOID PROCESS OF THE RADIUS. CORRELATION WITH AREA OF PAIN IS RECOMMENDED. Impression dictated by: Kian Pacheco Jr., D.OSera11/27/2021 11:09 AM Dictation Location: [place] [address] Transcribed By: [facility] 11/27/21 1109 Dictated By: Kian Pacheco Jr, DO 11/27/21 1106 Signed By: 11/27/21 1109 [facility] BASIC METABOLIC PANELon 09-01 Calcium [Mass/Vol] 9.7 mg/dL Normal 8.6-10.4 [facility] Comment on above: Performed By: #### 7 600, 496, 35773 #### [facility] [place] [address] Education Program Manager: John Ramon MD Chloride [Moles/Vol] 107 mmol/L Normal 98-110 [facility] Comment on above: Performed By: #### 7 600, 496, 51238 #### [facility] [place] [address] Education Program Manager: John Ramon MD CO2 [Moles/Vol] 27 mmol/L Normal 20-32 [facility] Comment on above: Performed By: #### 7 600, 496, 57106 #### [facility] [address] [place] [address] Education Program Manager: John Ramon MD Creatinine [Mass/Vol] 1.28 mg/dL High 0.60-0.93 [facility] Comment on above: Result Comment: For patients >49 years of age, the reference limit for Creatinine is approximately 13% higher for people identified as -[place]. Performed By: #### 7 600, 496, 27614 #### [facility] [address], [address] [place] [address] Education Program Manager: John Ramon MD eGFR NON-AFR. SOMALI 41 mL/min/1.73m2 Low > OR = 60 [facility] Comment on above: Performed By: #### 7 600, 496, 89009 #### [facility] [address], [address] [place] [address] Education Program Manager: John Ramon MD GFR/1.73 sq M.predicted among blacks MDRD (S/P/Bld) [Vol rate/Area] 48 mL/min/{1.73_m2} Low > OR = 60 [facility] Comment on above: Performed By: #### 7 600, 496, 87029 #### [facility] [address], [address] [place] [address] Education Program Manager: John Ramon MD Glucose [Mass/Vol] 126 mg/dL High 65-99 [facility] Comment on above: Result Comment: Fasting reference interval For someone without known diabetes, a glucose value >125 mg/dL indicates that they may have diabetes and this should be confirmed with a follow-up test. Performed By: #### 7 600, 496, 67300 #### [facility] [address], [address] [place] [address] Education Program Manager: John Ramon MD Potassium [Moles/Vol] 4.7 mmol/L Normal 3.5-5.3 [facility] Comment on above: Performed By: #### 7 600, 496, 86209 #### [facility] [address], [address] [place] [address] Education Program Manager: John Ramon MD Sodium [Moles/Vol] 142 mmol/L Normal 135-146 [facility] Comment on above: Performed By: #### 7 600, 496, 52222 #### [facility] [address], [address] [place] [address] Education Program Manager: John Ramon MD Urea nitrogen [Mass/Vol] 22 mg/dL Normal 7-25 [facility] Comment on above: Performed By: #### 7 600, 496, 76157 #### [facility] of [address], [address] [place] [address] Education Program Manager: John Ramon MD Urea nitrogen/Creatinine [Mass ratio] 17 mg/mg Normal 6-22 [facility] Comment on above: Performed By: #### 7 600, 496, 21936 #### [facility] [address], [address] [place] [address] Education Program Manager: John Ramon MD HEMOGLOBIN A1con 09-20-2021 HEMOGLOBIN A1c 6.8 % of total Hgb High <5.7 [facility] Comment on above: Result Comment: For someone without known diabetes, a hemoglobin A1c value of 6.5% or greater indicates that they may have diabetes and this should be confirmed with a follow-up test. For someone with known diabetes, a value <7% indicates that their diabetes is well controlled and a value greater than or equal to 7% indicates suboptimal control. A1c targets should be individualized based on duration of diabetes, age, comorbid conditions, and other considerations. Currently, no consensus exists regarding use of hemoglobin A1c for diagnosis of diabetes for children. Performed By: #### 7 600, 496, 83888 #### [facility] [address], [address] [place] [address] Education Program Manager: John Ramon MD LIPID PANEL, STANDARDon 09-01 Cholesterol [Mass/Vol] 169 mg/dL Normal <200 [facility] Comment on above: Order Comment: FASTI NG:YES FASTING: YES Performed By: #### 7 600, 496, 96941 #### [facility] [address], [address] [place] [address] Education Program Manager: John Ramon MD Cholesterol in HDL [Mass/Vol] 49 mg/dL Low > OR = 50 [facility] Comment on above: Order Comment: FASTI NG:YES FASTING: YES Performed By: #### 7 600, 496, 86291 #### [facility] [address], [address] [place] [address] Education Program Manager: John Ramon MD Cholesterol in LDL [Mass/Vol] 88 mg/dL Normal [facility] Comment on above: Order Comment: FASTI NG:YES FASTING: YES Result Comment: Refe rence range: <100 Desirable range <100 mg/dL for primary prevention; <70 mg/dL for patients with CHD or diabetic patients with > or = 2 CHD risk factors. LDL-C is now calculated using the Sushant calculation, which is a validated novel method providing better accuracy than the Friedewald equation in the estimation of LDL-C. Edwar SS et al. LANCE. 2013;310(19): 6076-8516 (http://education.Nominum/faq/OKG077) Performed By: #### 7 600, 496, 23377 #### [facility] [address], [address] [place] [address] Education Program Manager: John Ramon MD Cholesterol.total/C holesterol in HDL [Mass ratio] 3.4 {ratio} Normal <5.0 [facility] Comment on above: Order Comment: FASTI NG:YES FASTING: YES Performed By: #### 7 600, 496, 35871 #### [facility] [address], [address] [place] [address] Education Program Manager: John Ramon MD NON HDL CHOLESTEROL 120 mg/dL (calc) Normal <130 [facility] Comment on above: Order Comment: FASTI NG:YES FASTING: YES Result Comment: For patients with diabetes plus 1 major ASCVD risk factor, treating to a non-HDL-C goal of <100 mg/dL (LDL-C of <70 mg/dL) is considered a therapeutic option. Performed By: #### 7 600, 496, 04835 #### [facility] [place] [address] Education Program Manager: John Ramon MD Triglyceride [Mass/Vol] 233 mg/dL High <150 [facility] Comment on above: Order Comment: FASTI NG:YES FASTING: YES Result Comment: If a non-fasting specimen was collected, consider repeat triglyceride testing on a fasting specimen if clinically indicated. Daniel et al. J. of Clin. Lipidol. 2015;9:129-169. Performed By: #### 7 600, 496, 66149 #### [facility] [place] [address] Education Program Manager: John Ramon MD CBC (INCLUDES DIFF/PLT)on Basophils (Bld) [#/Vol] 0.039 10*3/uL Normal 0-200 [facility] Comment on above: Performed By: #### 6 399, 622, 7600, 905, 63352, 718, 70599 #### [facility] [place] [address] Education Program Manager: John Ramon MD Basophils/100 WBC (Bld) 0.5 % Normal [facility] Comment on above: Performed By: #### 6 399, 622, 7600, 905, 24335, 718, 06530 #### [facility] [place] [address] Education Program Manager: John Ramon MD Eosinophils (Bld) [#/Vol] 0.169 10*3/uL Normal 15-500 [facility] Comment on above: Performed By: #### 6 399, 622, 7600, 905, 47599, 718, 82880 #### [facility] [place] [address] Education Program Manager: John Ramon MD Eosinophils/100 WBC (Bld) 2.2 % Normal [facility] Comment on above: Performed By: #### 6 399, 622, 7600, 905, 65066, 718, 40799 #### [facility] [address] [place] [address] Education Program Manager: John Ramon MD Erythrocyte distribution width (RBC) [Ratio] 15.0 % Normal 11.0-15.0 [facility] Comment on above: Performed By: #### 6 399, 622, 7600, 905, 06837, 718, 19214 #### [facility] of [place] [address] Education Program Manager: John Ramon MD Hematocrit (Bld) [Volume fraction] 28.2 % Low 35.0-45.0 [facility] Comment on above: Performed By: #### 6 399, 622, 7600, 905, 19754, 718, 47329 #### [facility] of [place] [address] Education Program Manager: John Ramon MD Hemoglobin (Bld) [Mass/Vol] 9.0 g/dL Low 11.7-15.5 [facility] Comment on above: Performed By: #### 6 399, 622, 7600, 905, 28310, 718, 51182 #### [facility] of [place] [address] Education Program Manager: John Ramon MD Lymphocytes (Bld) [#/Vol] 2.626 10*3/uL Normal 850-3900 [facility] Comment on above: Performed By: #### 6 399, 622, 7600, 905, 78000, 718, 50657 #### [facility] of [place] [address] Education Program Manager: John Ramon MD Lymphocytes/100 WBC (Bld) 34.1 % Normal [facility] Comment on above: Performed By: #### 6 399, 622, 7600, 905, 16601, 718, 15401 #### [facility] of [place] [address] Education Program Manager: John Ramon MD MCH (RBC) [Entitic mass] 26.6 pg Low 27.0-33.0 [facility] Comment on above: Performed By: #### 6 399, 622, 7600, 905, 55592, 718, 85019 #### [facility] [place] [address] Education Program Manager: John Ramon MD MCHC (RBC) [Mass/Vol] 31.9 g/dL Low 32.0-36.0 [facility] Comment on above: Performed By: #### 6 399, 622, 7600, 905, 88922, 718, 28268 #### [facility] [place] [address] Education Program Manager: John Ramon MD MCV (RBC) [Entitic vol] 83.4 fL Normal 80.0-100.0 [facility] Comment on above: Performed By: #### 6 399, 622, 7600, 905, 12726, 718, 02927 #### [facility] of [place] [address] Education Program Manager: John Ramon MD Monocytes (Bld) [#/Vol] 0.601 10*3/uL Normal 200-950 [facility] Comment on above: Performed By: #### 6 399, 622, 7600, 905, [id number], 718, [id number] #### [facility] [place] [address] Education Program Manager: John Ramon MD Monocytes/100 WBC (Bld) 7.8 % Normal [facility] Comment on above: Performed By: #### 6 399, 622, 7600, 905, [id number], 718, [id number] #### [facility] [place] [address] Education Program Manager: John Ramon MD Neutrophils (Bld) [#/Vol] 4.266 10*3/uL Normal 9935-4488 [facility] Comment on above: Performed By: #### 6 399, 622, 7600, 905, 71035, 718, 03041 #### [facility] of [place] [address] Education Program Manager: John Ramon MD Neutrophils/100 WBC (Bld) 55.4 % Normal [facility] Comment on above: Performed By: #### 6 399, 622, 7600, 905, 57732, 718, 17113 #### [facility] [place] [address] Education Program Manager: John Ramon MD Platelet mean volume (Bld) [Entitic vol] 11.5 fL Normal 7.5-12.5 [facility] Comment on above: Performed By: #### 6 399, 622, 7600, 905, 24340, 718, 60904 #### [facility] [place] [address] Education Program Manager: John Ramon MD Platelets (Bld) [#/Vol] 294 10*3/uL Normal 140-400 [facility] Comment on above: Performed By: #### 6 399, 622, 7600, 905, 90785, 718, 86656 #### [facility] [place] [address] Education Program Manager: John Ramon MD RBC (Bld) [#/Vol] 3.38 10*6/uL Low 3.80-5.10 [facility] Comment on above: Performed By: #### 6 399, 622, 7600, 905, 98313, 718, 73757 #### [facility] [place] [address] Education Program Manager: John Ramon MD WBC (Bld) [#/Vol] 7.7 10*3/uL Normal 3.8-10.8 [facility] Comment on above: Performed By: #### 6 399, 622, 7600, 905, 87226, 718, 64633 #### [facility] [place] [address] Education Program Manager: John Ramon MD COMPREHENSIVE METABOLIC PANE Camilo 10-07-2021 Albumin [Mass/Vol] 3.9 g/dL Normal 3.6-5.1 [facility] Comment on above: Performed By: #### 6 399, 622, 7600, 905, 50465, 718, 44998 #### [facility] [place] [address] Education Program Manager: John Ramon MD Albumin/Globulin [Mass ratio] 1.7 {ratio} Normal 1.0-2.5 [facility] Comment on above: Performed By: #### 6 399, 622, 7600, 905, 45250, 718, 36911 #### [facility] [place] [address] Education Program Manager: John Ramon MD ALP [Catalytic activity/Vol] 90 U/L Normal 37-153 [facility] Comment on above: Performed By: #### 6 399, 622, 7600, 905, 22348, 718, 36154 #### [facility] [place] [address] Education Program Manager: John Ramon MD ALT [Catalytic activity/Vol] 13 U/L Normal 6-29 [facility] Comment on above: Performed By: #### 6 399, 622, 7600, 905, 36372, 718, 83783 #### [facility] [place] [address] Education Program Manager: John Ramon MD AST [Catalytic activity/Vol] 13 U/L Normal 10-35 [facility] Comment on above: Performed By: #### 6 399, 622, 7600, 905, 74086, 718, 47348 #### [facility] [place] [address] Education Program Manager: John Ramon MD Bilirubin [Mass/Vol] 0.4 mg/dL Normal 0.2-1.2 [facility] Comment on above: Performed By: #### 6 399, 622, 7600, 905, 06592, 718, 43356 #### [facility] [place] [address] Education Program Manager: John Ramon MD Calcium [Mass/Vol] 9.3 mg/dL Normal 8.6-10.4 [facility] Comment on above: Performed By: #### 6 399, 622, 7600, 905, 69027, 718, 29356 #### [facility] [place] [address] Education Program Manager: John Ramon MD Chloride [Moles/Vol] 107 mmol/L Normal 98-110 [facility] Comment on above: Performed By: #### 6 399, 622, 7600, 905, 94454, 718, 48511 #### [facility] [place] [address] Education Program Manager: John Ramon MD CO2 [Moles/Vol] 27 mmol/L Normal 20-32 [facility] Comment on above: Performed By: #### 6 399, 622, 7600, 905, 80764, 718, 12331 #### [facility] [place] [address] Education Program Manager: John Ramon MD Creatinine [Mass/Vol] 1.25 mg/dL High 0.60-0.93 [facility] Comment on above: Result Comment: For patients >49 years of age, the reference limit for Creatinine is approximately 13% higher for people identified as -[place]. Performed By: #### 6 399, 622, 7600, 905, 71809, 718, 96954 #### [facility] [place] [address] Education Program Manager: John Ramon MD eGFR NON-AFR. SOMALI 42 mL/min/1.73m2 Low > OR = 60 [facility] Comment on above: Performed By: #### 6 399, 622, 7600, 905, 80659, 718, 98589 #### [place] [address] Education Program Manager: John Ramon MD GFR/1.73 sq M.predicted among blacks MDRD (S/P/Bld) [Vol rate/Area] 49 mL/min/{1.73_m2} Low > OR = 60 [facility] Comment on above: Performed By: #### 6 399, 622, 7600, 905, 41003, 718, 55774 #### [facility] [place] [address] Education Program Manager: John Ramon MD Globulin (S) [Mass/Vol] 2.3 g/dL Normal 1.9-3.7 [facility] Comment on above: Performed By: #### 6 399, 622, 7600, 905, 16998, 718, 30937 #### [facility] [place] [address] Education Program Manager: John Ramon MD Glucose [Mass/Vol] 119 mg/dL High 65-99 [facility] Comment on above: Result Comment: Fasting reference interval For someone without known diabetes, a glucose value between 100 and 125 mg/dL is consistent with prediabetes and should be confirmed with a follow-up test. Performed By: #### 6 399, 622, 7600, 905, 91934, 718, 59562 #### [facility] [place] [address] Education Program Manager: John Ramon MD Potassium [Moles/Vol] 5.0 mmol/L Normal 3.5-5.3 [facility] Comment on above: Performed By: #### 6 399, 622, 7600, 905, 32279, 718, 54623 #### [facility] [place] [address] Education Program Manager: John Ramon MD Protein [Mass/Vol] 6.2 g/dL Normal 6.1-8.1 [facility] Comment on above: Performed By: #### 6 399, 622, 7600, 905, 54276, 718, 28181 #### [facility] of [address], [address] [place] [address] Education Program Manager: John Ramon MD Sodium [Moles/Vol] 142 mmol/L Normal 135-146 [facility] Comment on above: Performed By: #### 6 399, 622, 7600, 905, 11992, 718, 08358 #### [facility] of [address], [address] [place] [address] Education Program Manager: John Ramon MD Urea nitrogen [Mass/Vol] 20 mg/dL Normal 7-25 [facility] Comment on above: Performed By: #### 6 399, 622, 7600, 905, 97280, 718, 85812 #### [facility] [place] [address] Education Program Manager: John Ramon MD Urea nitrogen/Creatinine [Mass ratio] 16 mg/mg Normal 6-22 [facility] Comment on above: Performed By: #### 6 399, 622, 7600, 905, 30095, 718, 10363 #### [facility] [place] [address] Education Program Manager: John Ramon MD LIPID PANEL, [address] Cholesterol [Mass/Vol] 170 mg/dL Normal <200 [facility] Comment on above: Order Comment: FASTI NG:YES FASTING: YES Performed By: #### 6 399, 622, 7600, 905, 56593, 718, 27032 #### [facility] of [address], [address] [place] [address] Education Program Manager: John Ramon MD Cholesterol in HDL [Mass/Vol] 50 mg/dL Normal > OR = 50 [facility] Comment on above: Order Comment: FASTI NG:YES FASTING: YES Performed By: #### 6 399, 622, 7600, 905, 83227, 718, 11511 #### [facility] of [address], [address] [place] [address] Education Program Manager: John Ramon MD Cholesterol in LDL [Mass/Vol] 87 mg/dL Normal [facility] Comment on above: Order Comment: FASTI NG:YES FASTING: YES Result Comment: Refe rence range: <100 Desirable range <100 mg/dL for primary prevention; <70 mg/dL for patients with CHD or diabetic patients with > or = 2 CHD risk factors. LDL-C is now calculated using the Sushant calculation, which is a validated novel method providing better accuracy than the Friedewald equation in the estimation of LDL-C. Edwar SS et al. LANCE. 2013;310(19): 1197-9073 (http://education.[employer]/faq/GQQ961) Performed By: #### 6 399, 622, 7600, 905, 57356, 718, 39218 #### [facility] [place] [address] Education Program Manager: John Ramon MD Cholesterol.total/C holesterol in HDL [Mass ratio] 3.4 {ratio} Normal <5.0 [facility] Comment on above: Order Comment: FASTI NG:YES FASTING: YES Performed By: #### 6 399, 622, 7600, 905, 25397, 718, 64809 #### [facility] [place] [address] Education Program Manager: John Ramon MD NON HDL CHOLESTEROL 120 mg/dL (calc) Normal <130 [facility] Comment on above: Order Comment: FASTI NG:YES FASTING: YES Result Comment: For patients with diabetes plus 1 major ASCVD risk factor, treating to a non-HDL-C goal of <100 mg/dL (LDL-C of <70 mg/dL) is considered a therapeutic option. Performed By: #### 6 399, 622, 7600, 905, 63952, 718, 52472 #### [facility] [place] [address] Education Program Manager: John Ramon MD Triglyceride [Mass/Vol] 235 mg/dL High <150 [facility] Comment on above: Order Comment: FASTI NG:YES FASTING: YES Result Comment: If a non-fasting specimen was collected, consider repeat triglyceride testing on a fasting specimen if clinically indicated. Daniel et al. J. of Clin. Lipidol. 2015;9:129-169. Performed By: #### 6 399, 622, 7600, 905, 70601, 718, 63227 #### [facility] [address], [address] [place] [address] Education Program Manager: John Ramon MD MAGNESIUMon 03-08-2021 Magnesium [Mass/Vol] 1.9 mg/dL Normal 1.5-2.5 [facility] Comment on above: Performed By: #### 6 399, 622, 7600, 905, 22011, 718, 31530 #### [facility] [place] [address] Education Program Manager: John Ramon MD PHOSPHATE ( PHOSPHORUS)on 03-08-2021 Phosphate [Mass/Vol] 3.7 mg/dL Normal 2.1-4.3 [facility] Comment on above: Performed By: #### 6 399, 622, 7600, 905, 84858, 718, 59319 #### [facility] [place] [address] Education Program Manager: John Ramon MD PTH, INTACT WITHOUT CALCIUMo n 03-08-2021 PARATHYROID HORMONE, INTACT 54 pg/mL Normal 14-64 [facility] Comment on above: Result Comment: Interpretive Guide Intact PTH Calcium ------- Normal Parathyroid Normal Normal Hypoparathyroidism Low or Low Normal Low Hyperparathyroidism Primary Normal or High High Secondary High Normal or Low Tertiary High High Non-Parathyroid Hypercalcemia Low or Low Normal High Performed By: #### 6 399, 622, 7600, 905, 58529, 718, 36269 #### [facility] [address], [address] [place] [address] Education Program Manager: John Ramon MD URIC ACIDon 03-08-2021 Urate [Mass/Vol] 6.0 mg/dL Normal 2.5-7.0 [facility] Comment on above: Result Comment: Ther apeutic target for gout patients: <6.0 mg/dL Performed By: #### 6 399, 622, 7600, 905, 81881, 718, 86455 #### [facility] [address], [address] [place] [address] Education Program Manager: John Ramon MD VITAMIN D,25-OH,TOTAL,IAon 1 VITAMIN D,25-OH,TOTAL,IA 32 ng/mL Normal 30-100 [facility] Comment on above: Result Comment: Carrie min D Status 25-OH Vitamin D: Deficiency: <20 ng/mL Insufficiency: 20 - 29 ng/mL Optimal: > or = 30 ng/mL For 25-OH Vitamin D testing on patients on D2-supplementation and patients for whom quantitation of D2 and D3 fractions is required, the QuestAssureD(TM) 25-OH VIT D, (D2,D3), LC/MS/MS is recommended: order code 61634 (patients >2yrs). See Note 1 Note 1 For additional information, please refer to http://education.[employer]/faq/EDL020 (This link is being provided for informational/ educational purposes only.) Performed By: #### 7 600, 406, 96507 #### [facility] [address], [address] [place], [place] [address] Education Program Manager: John Ramon MD Vital Signs Date Time Vital Sign Value Performing Clinician Prince olmos 01-05-2025 09:50-0400 Body height 157.5 cm Saygus Work Phone: [facility] 01-05-2025 09:50-0400 Body mass index (BMI) [Ratio] 31.09 kg/m2 Saygus Work Phone: [facility] 01-05-2025 09:50-0400 Body temperature 98.2 [degF] Saygus Work Phone: [facility] 01-05-2025 09:50-0400 Body weight 77.11 kg Herb Furlong DO Work Phone: [facility] 01-05-2025 09:50-0400 Diastolic blood pressure 78 mm[Hg] Herb Furlong DO Work Phone: [facility] 01-05-2025 09:50-0400 Heart rate 95 /min Herb Furlong DO Work Phone: [facility] 01-05-2025 09:50-0400 Respiratory rate 20 /min Herb Furlong DO Work Phone: [facility] 01-05-2025 09:50-0400 SaO2% (BldA) [Mass fraction] 97 % Herb Furlong DO Work Phone: [facility] 01-05-2025 09:50-0400 Systolic blood pressure 122 mm[Hg] Herb Furlong DO Work Phone: [facility] 11-09-2024 12:23-0400 Body height 157.5 cm Herb Furlong DO Work Phone: [facility] 11-09-2024 12:23-0400 Body mass index (BMI) [Ratio] 31.09 kg/m2 Herb Furlong DO Work Phone: [facility] 11-09-2024 12:23-0400 Body weight 77.11 kg Herb Furlong DO Work Phone: [facility] 11-09-2024 12:23-0400 Diastolic blood pressure 82 mm[Hg] Herb Furlong DO Work Phone: [facility] 11-09-2024 12:23-0400 Systolic blood pressure 134 mm[Hg] Herb Furlong DO Work Phone: [facility] 07-05-2024 09:53-0500 Body height 157.5 cm Herb Furlong DO Work Phone: [facility] 07-05-2024 09:53-0500 Body mass index (BMI) [Ratio] 31.54 kg/m2 Herb Furlong DO Work Phone: [facility] 07-05-2024 09:53-0500 Body temperature 98.1 [degF] Herb Horowitzlong DO Work Phone: [facility] 07-05-2024 09:53-0500 Body weight 78.25 kg Herb Furlong DO Work Phone: [facility] 07-05-2024 09:53-0500 Diastolic blood pressure 62 mm[Hg] Herb Furlong DO Work Phone: [facility] 07-05-2024 09:53-0500 Heart rate 71 /min Herb Horowitzlong DO Work Phone: [facility] 07-05-2024 09:53-0500 Respiratory rate 18 /min Herb Horowitzlong DO Work Phone: [facility] 07-05-2024 09:53-0500 SaO2% (BldA) [Mass fraction] 98 % Herb Horowitzlong DO Work Phone: [facility] 07-05-2024 09:53-0500 Systolic blood pressure 130 mm[Hg] Herb Horowitzlong DO Work Phone: [facility] 02-12-2024 13:05-0400 Blood Pressure Location Sofia Galea [facility] 02-12-2024 13:05-0400 Diastolic blood pressure 62 mm[Hg] Sofia Galea [facility] 02-12-2024 13:05-0400 Heart rate 88 /min Sofia Galea [facility] 02-12-2024 13:05-0400 Systolic blood pressure 135 mm[Hg] Sofia Knight [facility] 09-05-2023 10:130400 Body height 160.02 cm [facility] 09-05-2023 10:130400 Body mass index (BMI) [Ratio] 30.8 kg/m2 [facility] 09-05-2023 10:13040 Body temperature 97.1 [degF] [facility] 09-05-2023 10:040 Body weight 78.92 kg [facility] 09-05-2023 10:130400 Heart rate 100 /min [facility] 09-05-2023 10:13040 Respiratory rate 18 /min [facility] 09-05-2023 10:13-0400 SaO2% (BldA) [Mass fraction] 96 % [facility] 02-10-2023 09:57-0400 Blood Pressure Location Gavino GENTILE [facility] 02-10-2023 09:57-0400 Diastolic blood pressure 72 mm[Hg] Gavino GENTILE [facility] 02-10-2023 09:57-0400 Heart rate 65 /min Gavino GENTILE [facility] 02-10-2023 09:57-0400 Systolic blood pressure 142 mm[Hg] Gavino GENTILE [facility] 02-08-2022 09:46-0400 Blood Pressure Location Gavinomohit GENTILE [facility] 02-08-2022 09:46-0400 Diastolic blood pressure 69 mm[Hg] Gavino GENTILE [facility] 02-08-2022 09:46-0400 Heart rate 60 /min Gavino GENTILE [facility] 02-08-2022 09:46-0400 Respiratory rate 16 /min Gavino GENTILE [facility] 02-08-2022 09:46-0400 Systolic blood pressure 127 mm[Hg] Gavino GENTILE [facility] Encounters Encounter Date Encounter Type Care Provider Facility Start: 02-10-2026 ambulatory Gavino GENTILE Facili ty:[facility] Start: 02-11-2025 End: 02-11-2025 ambulatory Gavino GENTILE Facility:[facility] Start: 02-11-2025 End: 02-11-2025 Patient encounter procedure Gavino GENTILE [facility] Start: 02-08-2025 End: 02-08-2025 Refill Herb G Furlong DO Work Phone: [facility] Comment on above: Hypertension associa enedelia with 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 ([facility]) Start: 01-20-2025 End: 01-20-2025 Refill Herb G Furlong DO Work Phone: [facility] Comment on above: Ulcer of esophagus w ithout bleeding Start: 01-05-2025 End: 01-05-2025 Office outpatient visit 25 minutes Herb G Furlong DO Work Phone: [facility] Comment on above: Hypertension associa enedelia with 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 ([facility]) (Primary Dx); Mixed hyperlipidemia; Gastroesophageal reflux disease with esophagitis without hemorrhage; Neoplasm of uncertain behavior of skin; Class 1 obesity due to excess calories with serious comorbidity and body mass index (BMI) of 31.0 to 31.9 in adult Start: 01-05-2025 End: 01-05-2025 ambulatory [facility] Start: 12-14-2024 End: 12-14-2024 Refill Herb Vergara DO Work Phone: [facility] Comment on above: Gastroesophageal ref lux disease with esophagitis without hemorrhage Start: 11-24-2024 End: 11-24-2024 Refill Herb Vergara DO Work Phone: [facility] Comment on above: Hypertension associa enedelia with 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 ([facility]) (Primary Dx) Start: 11-09-2024 End: 11-09-2024 Patient encounter procedure Herb Vergara DO Work Phone: [facility] Comment on above: Medicare annual well ness visit, subsequent (Primary Dx); Screening for depression Start: 11-09-2024 End: 11-09-2024 ambulatory [facility] Start: 10-29-2024 End: 10-29-2024 Refill Herb Vergara DO Work Phone: [facility] Comment on above: Mixed hyperlipidemia Start: 08-16-2024 End: 08-16-2024 Refill Herb Vergara DO Work Phone: [facility] Comment on above: Hypertension associa enedelia with 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 ([facility]) Start: 07-23-2024 End: 07-23-2024 ambulatory [facility] Start: 07-05-2024 End: 07-05-2024 ambulatory [facility] Start: 07-05-2024 End: 07-05-2024 Office outpatient visit 25 minutes Herb Vergara DO Work Phone: [facility] Comment on above: Hypertension associa enedelia with 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 ([facility]) (Primary Dx); Encounter for screening mammogram for malignant neoplasm of breast; Ulcer of esophagus without bleeding; Anemia, unspecified type; Class 1 obesity due to excess calories with serious comorbidity and body mass index (BMI) of 31.0 to 31.9 in adult Start: 07-05-2024 End: 07-05-2024 ambulatory [facility] Start: 06-11-2024 End: 06-11-2024 Refill Florencio Parsons Work Phone: [facility] Comment on above: Gastroesophageal ref lux disease with esophagitis without hemorrhage Start: 02-12-2024 End: 02-12-2024 Patient encounter procedure Sofia Knight [facility] Start: 01-12-2024 End: 01-12-2024 ambulatory JAQUELINE SANCHEZ Not Available Start: 10-28-2023 End: 10-28-2023 ambulatory [facility] Start: 09-05-2023 End: 09-05-2023 ambulatory [facility] Work Phone: Start: 09-05-2023 End: 09-05-2023 Patient encounter procedure [facility] Work Phone: Start: 08-29-2023 End: 08-29-2023 ambulatory [facility] Start: 02-10-2023 End: 02-10-2023 Patient encounter procedure Gavino GENTILE [facility] Start: 02-08-2022 End: 02-08-2022 Patient encounter procedure Gavino GENTILE [facility] Start: 02-05-2022 End: 02-06-[address] BENITES Heather VERGARA Facility:[facility] Start: 11-27-2021 End: 11-27-2021 Patient encounter procedure MD David Correa Work Phone: [facility] Procedures Date Procedure Procedure Detail Performing Clinician Start: 01-05-2025 Adult depression scr eening assessment Herb Vergara DO Work Phone: Start: 11-09-2024 Adult depression scr eening assessment Herb Vergara DO Work Phone: Start: 07-05-2024 Adult depression scr eening assessment Herb Vergara DO Work Phone: Start: 11-06-2023 Adult depression scr eening assessment Florencio Parsons DO Work Phone: Start: 11-27-2021 Plain X-ray of left wrist MD David Correa Work Phone: Start: 06-29-2015 Extracorporeal shock wave lithotripsy of ureter Gavino GENTILE Start: 04-19-2015 Cystoscopic removal of ureteric stent Gavino GENTILE Start: 04-06-2015 Removal of calculus of renal pelvis through percutaneous nephrostomy Gavino GENTILE Start: 04-06-2015 Removal of calculus of renal pelvis through percutaneous nephrostomy Gavino GENTILE Start: 03-09-2015 Cystoscope, device ( physical object) Gavino GENTILE Abdominal hysterectomy Laurasaad GENTILE Bilateral replacemen t of knee joints Gavino GENTILE Bilateral replacemen t of knee joints Gavino GENTILE Biopsy of breast Gavino JASS OBRIEN Comment on above: Benign Cystoscope, device ( physical object) Gavino GENTILE Cystoscope, device ( physical object) Gavino GENTILE Hemorrhoidectomy Gavino OBRIEN Procedure on wrist joint Laura GENTILE Plan of Treatment Date Care Activity Detail Author Start: 08-25-2028 DTaP,Tdap and Td Vaccines (2 - Td or Tdap) DTaP,Tdap and Td Vaccines (2 - Td or Tdap) [facility] Start: 01-05-2026 Depression Screening Depression Scre ening [facility] Start: 01-05-2026 Fall Risk Screening Fall Risk Screen ing [facility] Start: 01-05-2026 Tobacco Screening Tobacco Screening [facility] Start: 11-15-2025 End: 11-15-2025 Patient encounter procedure 11/15/2025 1:00 PM EDT Office Visit [facility] [address] [place] [address] [facility] Start: 11-09-2025 Depression Screening Depression Scre ening [facility] Start: 11-09-2025 Fall Risk Screening Fall Risk Screen ing [facility] Start: 11-09-2025 Medicare Annual Wellness Visit Medicare Annual Wellness Visit [facility] Start: 07-08-2025 End: 07-08-2025 Patient encounter procedure 07/08/2025 10:30 AM EST Office Visit [facility] [address] [place] [address] Herb Vergara, DO [address], [facility] [place] [address] [facility] Start: 07-05-2025 Depression Screening Depression Scre ening [facility] Start: 07-05-2025 Fall Risk Screening Fall Risk Screen ing [facility] Start: 07-05-2025 Tobacco Screening Tobacco Screening [facility] Start: 01-31-2025 COVID-19 Vaccine (7 - Moderna risk ) COVID-19 Vaccine (7 - Moderna risk ) [facility] Start: 01-31-2025 Influenza vaccination Influenza Vacc ine [facility] Start: 01-05-2025 End: 01-05-2025 Patient encounter procedure 01/05/2025 10:00 AM EDT Office Visit [facility] Internal Medicine - Family Medicine [address] [place] [id number] Herb Vergara, [address], [facility] [place] [address] [facility] Internal [facility] - [facility] Start: 11-09-2024 End: 11-09-2024 Patient encounter procedure 11/09/2024 1:00 PM EDT Office Visit [facility] Internal Medicine - Family Medicine [address] [place] [phone] [facility] Internal [facility] - [facility] Start: 11-05-2024 Depression Screening Depression Scre ening [facility] Start: 11-05-2024 Fall Risk Screening Fall Risk Screen ing [facility] Start: 11-05-2024 Medicare Annual Wellness Visit Medicare Annual Wellness Visit [facility] Start: 09-29-2024 Tobacco Screening Tobacco Screening [facility] Start: 08-15-2024 COVID-19 Vaccine ( season) COVID-19 Vaccine () [facility] Start: 08-15-2024 COVID-19 Vaccine (7 - Moderna risk season) COVID-19 Vaccine (7 - Moderna risk ) [facility] Start: 07-05-2024 End: 07-05-2025 DBT Breast - bilateral screening Mammography screening bilateral with CAD Imaging Routine Encounter for screening mammogram for malignant neoplasm of breast Expected: 07/05/2024, Expires: 07/05/2025 [facility] Work Phone: Comment on above: Expected: 07/05/2024 , Expires: 07/05/2025 Start: 07-05-2024 End: 07-05-2024 Patient encounter procedure 07/05/2024 10:00 AM EST [facility] [address] [place] [address] Herb Vergara DO [address], [place] [address] [facility] - [facility] Start: 02-01-2024 COVID-19 Vaccine ( season) COVID-19 Vaccine () [facility] Start: 02-01-2024 Influenza vaccination Influenza Vacc ine [facility] End: 07-05-2025 Basic metabolic 2000 panel - Serum or Plasma Basic Metabolic Panel Lab Routine 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 ([facility]) 1 Occurrences starting 07/05/2024 until 07/05/2025 [facility] Comment on above: 1 Occurrences starti ng 07/05/2024 until 07/05/2025 End: 07-05-2025 CBC panel - Blood by Automated count CBC without diff Lab Routine Anemia, unspecified type 1 Occurrences starting 07/05/2024 until 07/05/2025 [facility] [employer] Comment on above: 1 Occurrences starti ng 07/05/2024 until 07/05/2025 End: 01-05-2026 CBC panel - Blood by Automated count CBC without diff Lab Routine 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 ([facility]) 1 Occurrences starting 01/05/2025 until 01/05/2026 [facility] Comment on above: 1 Occurrences starti ng 01/05/2025 until 01/05/2026 CBC panel - Blood by Automated count CBC without diff Lab Routine 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 ([facility]) 01/05/2025 10:55 AM EDT [facility] [employer] End: 01-05-2026 Comprehensive metabolic 2000 panel - Serum or Plasma Comprehensive metabolic panel Lab Routine 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 ([facility]) 1 Occurrences starting 01/05/2025 until 01/05/2026 [employer] Work Phone: Comment on above: 1 Occurrences starti ng 01/05/2025 until 01/05/2026 Comprehensive metabo lic 2000 panel - Serum or Plasma Comprehensive metabolic panel Lab Routine 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 ([facility]) 01/05/2025 10:55 AM EDT [employer] [facility] End: 07-05-2025 Hemoglobin A1c/Hemoglobin.total in Blood Hemoglobin A1c Lab Routine 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 ([facility]) 1 Occurrences starting 07/05/2024 until 07/05/2025 [employer] [facility] Comment on above: 1 Occurrences starti ng 07/05/2024 until 07/05/2025 End: 01-05-2026 Hemoglobin A1c/Hemoglobin.total in Blood Hemoglobin A1c Lab Routine 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 ([facility]) 1 Occurrences starting 01/05/2025 until 01/05/2026 [employer] Comment on above: 1 Occurrences starti ng 01/05/2025 until 01/05/2026 Hemoglobin A1c/Hemoglobin.total in Blood Hemoglobin A1c Lab Routine 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 ([facility]) 01/05/2025 10:55 AM EDT [employer] End: 01-05-2026 Lipid 1996 panel - Serum or Plasma Lipid profile Lab Routine Mixed hyperlipidemia 1 Occurrences starting 01/05/2025 until 01/05/2026 [employer] Comment on above: 1 Occurrences starti ng 01/05/2025 until 01/05/2026 Lipid 1996 panel - Serum or Plasma Lipid profile Lab Routine Mixed hyperlipidemia 01/05/2025 10:55 AM EDT [employer] [facility] End: 01-05-2026 Magnesium [Mass/volume] in Serum or Plasma Magnesium Lab Routine 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 ([facility]) 1 Occurrences starting 01/05/2025 until 01/05/2026 [employer] Comment on above: 1 Occurrences starti ng 01/05/2025 until 01/05/2026 Magnesium [Mass/volu me] in Serum or Plasma Magnesium Lab Routine 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 ([facility]) 01/05/2025 10:55 AM EDT [employer] End: 01-05-2026 Microalbumin - Albumin: Creatinine Urine Ratio Microalbumin - Albumin: Creatinine Urine Ratio Lab Routine 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 ([facility]) 1 Occurrences starting 01/05/2025 until 01/05/2026 [employer] Comment on above: 1 Occurrences starti ng 01/05/2025 until 01/05/2026 Microalbumin - Album in: Creatinine Urine Ratio Microalbumin - Albumin: Creatinine Urine Ratio Lab Routine 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 ([facility]) 01/05/2025 10:55 AM EDT [employer] End: 01-05-2026 Parathyroid Hormone, intact Parathyroid Hormone, intact Lab Routine 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 ([facility]) 1 Occurrences starting 01/05/2025 until 01/05/2026 [employer] Comment on above: 1 Occurrences starti ng 01/05/2025 until 01/05/2026 Parathyroid Hormone, intact Parathyroid Hormone, intact Lab Routine 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 ([facility]) 01/05/2025 10:55 AM EDT [employer] End: 01-05-2026 Phosphate [Mass/volume] in Serum or Plasma Phosphorus Lab Routine 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 ([facility]) 1 Occurrences starting 01/05/2025 until 01/05/2026 [employer] Comment on above: 1 Occurrences starti ng 01/05/2025 until 01/05/2026 Phosphate [Mass/volu me] in Serum or Plasma Phosphorus Lab Routine 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 ([facility]) 01/05/2025 10:55 AM EDT [employer] End: 07-05-2025 Thyrotropin [Units/volume] in Serum or Plasma TSH Lab Routine 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 ([facility]) 1 Occurrences starting 07/05/2024 until 07/05/2025 [employer] Comment on above: 1 Occurrences starti ng 07/05/2024 until 07/05/2025 End: 01-05-2026 Urate [Mass/volume] in Serum or Plasma Uric acid Lab Routine 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 ([facility]) 1 Occurrences starting 01/05/2025 until 01/05/2026 [facility] Comment on above: 1 Occurrences starti ng 01/05/2025 until 01/05/2026 Urate [Mass/volume] in Serum or Plasma Uric acid Lab Routine 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 ([facility]) 01/05/2025 10:55 AM EDT [facility] End: 01-05-2026 Vitamin D 25 hydroxy Vitamin D 25 hydroxy Lab Routine 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 ([facility]) 1 Occurrences starting 01/05/2025 until 01/05/2026 [facility] Comment on above: 1 Occurrences starti ng 01/05/2025 until 01/05/2026 Vitamin D 25 hydroxy Vitamin D 2 5 hydroxy Lab Routine 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 ([facility]) 01/05/2025 10:55 AM EDT [employer] [facility] Immunizations Immunization Date Immunization Notes Care Provider Wayne velazquez 02-16-2024 influenza, high dose seasonal, preservative-free Herb Vergara DO Work Phone: [facility] 02-16-2024 influenza virus vacc ine, unspecified formulation Herblety Floresana DO Work Phone: [facility] 04-30-2023 RSV, recombinant, protein subunit RSVpreF, adjuvant reconstituted, 0.5 mL, PF Florencio Mariscallaura DO Work Phone: [facility] 03-12-2023 Influenza, High-dose , Quadrivalent Florencio Parsons DO Work Phone: [facility] 03-12-2023 influenza virus vacc ine, unspecified formulation Florencio Mallorykinsey DO [facility] 03-08-2022 Influenza Vaccine, Quadrivalent, Adjuvanted Florencio Malloryhas DO Work Phone: [facility] 03-14-2021 Influenza Vaccine, Quadrivalent, Adjuvanted Florencio Malloryhas DO Work Phone: [facility] 04-15-2020 Influenza, High-dose , Quadrivalent Florencio Malloryhas DO Work Phone: [facility] 08-02-2019 zoster vaccine recombinant Florencio Mariscals DO Work Phone: [facility] 03-12-2019 influenza, injectabl e, quadrivalent, preservative free Florencio Malloryhas DO Work Phone: [facility] 02-22-2019 zoster vaccine recombinant Florencio Malloryhas DO Work Phone: [facility] 08-25-2018 tetanus toxoid, redu ayesha diphtheria toxoid, and acellular pertussis vaccine, adsorbed Florencio Mariscals DO Work Phone: [facility] 03-25-2018 influenza, injectabl e, quadrivalent, contains preservative Florencio Mariscals DO Work Phone: [facility] 02-18-2018 pneumococcal conjuga te vaccine, 13 valent Florencio Malloryhas DO Work Phone: [facility] 01-31-2015 influenza, injectabl e, madin carlitos canine kidney, preservative free Florencio Mariscals DO Work Phone: [facility] 01-31-2015 pneumococcal polysaccharide vaccine, 23 valent Florencio Malloryhas DO Work Phone: [facility] 12-25-2011 pneumococcal polysaccharide vaccine, 23 valent Florencio Malloryhas DO Work Phone: [facility] 12-15-2008 zoster vaccine, live Florencio Mallory has DO Work Phone: [facility] 06-02-2008 zoster vaccine, live Florencio Mallory has DO Work Phone: [facility] Payers Date Payer Category Payer Private Health Insurance [id number] 2017 Managed Care Other (unspecified) COMMERCIAL [id number] 2017 Unknown [id number] 2011 Medicare [id number] 1959 Medicare [id number] 1946 Unknown [id number] 1946 Unknown [id number] .1258 1946 Unknown [id number] 2..[id number] .1258 1946 Unknown [id number] [id number] .1258 1946 Unknown [id number] [id number] .1285 1946 Unknown [id number] .128 1946 Unknown [id number] .1286 1946 Unknown [id number] [id number] .1286 1946 Unknown [id number] [id number] .1286 1946 Unknown [id number] [id number] .1286 1946 Unknown [id number] [id number] .1286 1946 Unknown [id number] [id number] .727 1945 Unknown [id number] .727 Self-pay Self Pay [id number] Unknown [place] [place] [id number] Social History Date Type Detail Facility Tobacco smoking stat [facility] Unknown if ever smoked [facility] Work Phone: Start: 1945 Sex Assigned At Female [facility] Start: 02-02-2021 End: 02-11-2025 Tobacco smoking status Never smoked tobacco (finding) [facility] Start: 10-31-2022 End: 11-06-2023 Sex Assigned At Female [facility] Tobacco smoking status Never [facility] Start: 09-25-2021 Tobacco use and exposure Smoke less tobacco non-user [facility] Start: 09-30-2023 End: 01-05-2025 Alcoholic beverage intake Ex-drinker (finding) [facility] Start: 10-31-2022 End: 11-06-2023 History of Social function [facility] Has the [employer], [employer], [employer], or water [employer] threatened to shut off services in your home in past 12Mo No [facility] Are you now , , , , never or living with a partner? [facility] How often to you hav e a drink containing alcohol? Never [facility] Do you feel stress - tense, restless, nervous, or anxious, or unable to sleep at night because your mind is troubled all the time - these days [OSQ] Only a little [facility] Start: 1945 Sex assigned at [facility] on file [facility] Start: 01-05-2015 End: 02-20-2019 Sex Female (finding) [facility] Sexual Orientation [facility] Functional Status Date Assessment Result Facility 02-12-2024 Functional Status N/A [facility] 02-10-2023 Functional Status N/A [facility] 02-08-2022 Functional Status N/A [facility] Clinical Notes 02-08-2022 to 02-11-2025 Herb Vergara, DO - 01/05/2025 10:00 AM Frances Vergara, DO - 11/09/2024 1:00 PM Frances Vergara, DO - 07/05/2024 10:00 AM EST Note Date & Type Note Facility 02-11-2025 Hospital Discharg e instructions Patient Education 02/11/2025 10:38:43 Dietary Guidelines to Help Prevent Kidney Stones Dietary Guidelines to Help Prevent Kidney Stones Kidney stones are deposits of minerals and salts that form inside your kidneys. Your risk of developing kidney stones may be greater depending on your diet, your lifestyle, the medicines you take, and whether you have certain medical conditions. Most people can lower their risks of developing kidney stones by following these dietary guidelines. Your dietitian may give you more specific instructions depending on your overall health and the type of kidney stones you tend to develop. What are tips for following this plan? Reading food labels Choose foods with no salt added or low-salt labels. Limit your salt (sodium) intake to less than 1,500 mg a day. Choose foods with calcium for each meal and snack. Try to eat about 300 mg of calcium at each meal. Foods that contain 200 500 mg of calcium a serving include: ?8 oz (237 mL) of milk, wgxfsly-irgvnpvqnmfy-cydif milk, and calcium-fortifiedfruit juice. Calcium-fortified means that calcium has been added to these drinks. ?8 oz (237 mL) of kefir, yogurt, and soy yogurt. ?4 oz (114 g) of tofu. ?1 oz (28 g) of cheese. ?1 cup (150 g) of dried figs. ?1 cup (91 g) of cooked broccoli. ?One 3 oz (85 g) can of sardines or mackerel. Most people need 1,000 1,500 mg of calcium a day. Talk to your dietitian about how much calcium is recommended for you. Shopping Buy plenty of fresh fruits and vegetables. Most people do not need to avoid fruits and vegetables, even if these foods contain nutrients that may contribute to kidney stones. When shopping for convenience foods, choose: ?Whole pieces of fruit. ?Pre-made salads with dressing on the side. ?Low-fat fruit and yogurt smoothies. Avoid buying frozen meals or prepared deli foods. These can be high in sodium. Look for foods with live cultures, such as yogurt and kefir. Choose high-fiber grains, such as whole-wheat breads, oat bran, and wheat cereals. Cooking Do not add salt to food when cooking. Place a salt shaker on the table and allow each person to add their own salt to taste. Use vegetable protein, such as beans, textured vegetable protein (TVP), or tofu, instead of meat in pasta, casseroles, and soups. Meal planning Eat less salt, if told by your dietitian. To do this: ?Avoid eating processed or pre-made food. ?Avoid eating fast food. Eat less animal protein, including cheese, meat, poultry, or fish, if told by your dietitian. To do this: ?Limit the number of times you have meat, poultry, fish, or cheese each week. Eat a diet free of meat at least 2 days a week. ?Eat only one serving each day of meat, poultry, fish, or seafood. ?When you prepare animal proteins, cut pieces into small portion sizes. For most meat and fish, one serving is about the size of the palm of your hand. Eat at least five servings of fresh fruits and vegetables each day. To do this: ?Keep fruits and vegetables on hand for snacks. ?Eat one piece of fruit or a handful of berries with breakfast. ?Have a salad and fruit at lunch. ?Have two kinds of vegetables at dinner. You may be told to limit foods that are high in a substance called oxalate. These include: ?Spinach (cooked), rhubarb, beets, sweet potatoes, and Bahraini chard. ?Peanuts. ?Potato chips, luxembourger fries, and baked potatoes with skin on. ?Nuts and nut products. ?Chocolate. If you regularly take a diuretic medicine, make sure to eat at least 1 or 2 servings of fruits or vegetables that are high in potassium each day. These include: ?Avocado. ?Banana. ?[place], prune, carrot, or tomato juice. ?Baked potato. ?Cabbage. ?Beans and split peas. Lifestyle Drink enough fluid to keep your urine pale yellow. This is the most important thing you can do. Spread your fluid intake throughout the day. If you drink alcohol: ?Limit how much you have to: ?0 1 drink a day for women who are not . ?0 2 drinks a day for men. ?Know how much alcohol is in your drink. In the [place] one drink equals one 12 oz bottle of beer (355 mL), one 5 oz glass of wine (148 mL), or one 1 oz glass of hard liquor (44 mL). Lose weight if told by your health care provider. Work with your dietitian to find an eating plan and weight loss strategies that work best for you. General information Talk to your health care provider and dietitian about taking daily supplements. Depending on your health and the cause of your kidney stones, you may be told: ?Do not take high-dose supplements of vitamin C (1,000 mg a day or more). ?To take a calcium supplement. ?To take a daily probiotic supplement. ?To take other supplements such as magnesium, fish oil, or vitamin B6. Take yjlq-vqx-olvyzra and prescription medicines only as told by your health care provider. These include supplements. What foods should I limit? Limit your intake of the following foods, or eat them as told by your dietitian. Vegetables Spinach. Rhubarb. Beets. Canned vegetables. Pickles. Olives. Baked potatoes with skin. Grains Wheat bran. Baked goods. Salted crackers. Cereals high in sugar. Meats and other proteins Nuts. Nut butters. Large portions of meat, poultry, or fish. Salted, precooked, or cured meats, such as sausages, meat loaves, and hot dogs. Dairy Cheeses. Beverages Regular soft drinks. Regular vegetable juice. Seasonings and condiments Seasoning blends with salt. Salad dressings. Soy sauce. Ketchup. Barbecue sauce. Other foods Canned soups. Canned pasta sauce. Casseroles. Pizza. Lasagna. Frozen meals. Potato chips. Nepalese fries. The items listed above may not be a complete list of foods and beverages you should limit. Contact a dietitian for more information. What foods should I avoid? Talk to your dietitian about specific foods you should avoid based on the type of kidney stones you have and your overall health. Fruits Grapefruit. The item listed above may not be a complete list of foods and beverages you should avoid. Contact a dietitian for more information. Summary Kidney stones are deposits of minerals and salts that form inside your kidneys. You can lower your risk of kidney stones by making changes to your diet. The most important thing you can do is drink enough fluid. Drink enough fluid to keep your urine pale yellow. Talk to your dietitian about how much calcium you should have each day, and eat less salt and animal protein as told by your dietitian. This information is not intended to replace advice given to you by your health care provider. Make sure you discuss any questions you have with your health care provider. Document Revised: 08/29/2022 Document Reviewed: 08/29/2022 [employer] Patient Education 2023 [employer]. Follow Up Care 02/12/2024 13:30:28 With:CECELIA MEDINA, Gavino Manjarrez, URL Address: [address] [place], [place] [id number]- When: Unknown [facility] Reinaldo 02-11-2025 Note Patient Education Nephrology Dietary Guidelines to Help Prevent Kidney Stones Kidney stones are deposits of minerals and salts that form inside your kidneys. Your risk of developing kidney stones may be greater depending on your diet, your lifestyle, the medicines you take, and whether you have certain medical conditions. Most people can lower their risks of developing kidney stones by following these dietary guidelines. Your dietitian may give you more specific instructions depending on your overall health and the type of kidney stones you tend to develop. What are tips for following this plan? Reading food labels ??? Choose foods with no salt added or low-salt labels. Limit your salt (sodium) intake to less than 1,500 mg a day. ??? Choose foods with calcium for each meal and snack. Try to eat about 300 mg of calcium at each meal. Foods that contain 200?500 mg of calcium a serving include: ? 8 oz (237 mL) of milk, vzdzuxh-jlphlwhbobnp-rxpkm milk, and calcium-fortifiedfruit juice. Calcium-fortified means that calcium has been added to these drinks. ? 8 oz (237 mL) of kefir, yogurt, and soy yogurt. ? 4 oz (114 g) of tofu. ? 1 oz (28 g) of cheese. ? 1 cup (150 g) of dried figs. ? 1 cup (91 g) of cooked broccoli. ? One 3 oz (85 g) can of sardines or mackerel. Most people need 1,000?1,500 mg of calcium a day. Talk to your dietitian about how much calcium is recommended for you. Shopping ??? Buy plenty of fresh fruits and vegetables. Most people do not need to avoid fruits and vegetables, even if these foods contain nutrients that may contribute to kidney stones. ??? When shopping for convenience foods, choose: ? Whole pieces of fruit. ? Pre-made salads with dressing on the side. ? Low-fat fruit and yogurt smoothies. ??? Avoid buying frozen meals or prepared deli foods. These can be high in sodium. ??? Look for foods with live cultures, such as yogurt and kefir. ??? Choose high-fiber grains, such as whole-wheat breads, oat bran, and wheat cereals. Cooking ??? Do not add salt to food when cooking. Place a salt shaker on the table and allow each person to add their own salt to taste. ??? Use vegetable protein, such as beans, textured vegetable protein (TVP), or tofu, instead of meat in pasta, casseroles, and soups. Meal planning ??? Eat less salt, if told by your dietitian. To do this: ? Avoid eating processed or pre-made food. ? Avoid eating fast food. ??? Eat less animal protein, including cheese, meat, poultry, or fish, if told by your dietitian. To do this: ? Limit the number of times you have meat, poultry, fish, or cheese each week. Eat a diet free of meat at least 2 days a week. ? Eat only one serving each day of meat, poultry, fish, or seafood. ? When you prepare animal proteins, cut pieces into small portion sizes. For most meat and fish, one serving is about the size of the palm of your hand. ??? Eat at least five servings of fresh fruits and vegetables each day. To do this: ? Keep fruits and vegetables on hand for snacks. ? Eat one piece of fruit or a handful of berries with breakfast. ? Have a salad and fruit at lunch. ? Have two kinds of vegetables at dinner. ??? You may be told to limit foods that are high in a substance called oxalate. These include: ? Spinach (cooked), rhubarb, beets, sweet potatoes, and [place]raini chard. ? Peanuts. ? Potato chips, luxembourger fries, and baked potatoes with skin on. ? Nuts and nut products. ? Chocolate. ??? If you regularly take a diuretic medicine, make sure to eat at least 1 or 2 servings of fruits or vegetables that are high in potassium each day. These include: ? Avocado. ? Banana. ? [place], prune, carrot, or tomato juice. ? Baked potato. ? Cabbage. ? Beans and split peas. Lifestyle ??? Drink enough fluid to keep your urine pale yellow. This is the most important thing you can do. Spread your fluid intake throughout the day. ??? If you drink alcohol: ? Limit how much you have to: ? 0?1 drink a day for women who are not . ? 0?2 drinks a day for men. ? Know how much alcohol is in your drink. In the [place] one drink equals one 12 oz bottle of beer (355 mL), one 5 oz glass of wine (148 mL), or one 1? oz glass of hard liquor (44 mL). ??? Lose weight if told by your health care provider. Work with your dietitian to find an eating plan and weight loss strategies that work best for you. General information ??? Talk to your health care provider and dietitian about taking daily supplements. Depending on your health and the cause of your kidney stones, you may be told: ? Do not take high-dose supplements of vitamin C (1,000 mg a day or more). ? To take a calcium supplement. ? To take a daily probiotic supplement. ? To take other supplements such as magnesium, fish oil, or vitamin B6. ??? Take iegq-yug-qccatml and prescription medicines only as told by your health (more content not included)... [facility] 01-05-2025 History of Presen t illness Narrative Subjective Patient ID: Barbra Joy is a 79 y.o. female. Barbra presents today for a CV recheck. She is taking her medications. She has new problem. She has a skin lesion on her left forearm and bilateral lower legs. They all started in the last few months. She never wears any sunscreen. She used to mcbride. She is fair complected. She is using pantoprazole and famotidine for her stomach. It is working for her. She tried cutting back but then had heartburn and would vomit too. She will occasionally have vomiting in the middle of the night depending on what she ate. The following portions of the patient's history were reviewed and updated as appropriate: allergies, current medications, past family history, past medical history, past social history, past surgical history, problem list, and medication reconciliation was completed including current medication and post discharge medication. Review of Systems Constitutional: Negative. HENT: Negative. Eyes: Negative. Respiratory: Negative. Cardiovascular: Negative. Gastrointestinal: Positive for abdominal pain and vomiting (Occasionally in the middle of the night). Endocrine: Negative. Genitourinary: Negative. Musculoskeletal: Negative. Skin: Positive for color change. Allergic/Immunologic: Negative. Neurological: Negative. Hematological: Negative. Psychiatric/Behavioral: Negative. Objective Physical Exam Vitals reviewed. Cardiovascular: Rate and Rhythm: Normal rate and regular rhythm. Heart sounds: Normal heart sounds. No murmur heard. Pulmonary: Effort: Pulmonary effort is normal. Breath sounds: Normal breath sounds. Skin: Findings: Lesion present. Comments: Right leg was 8mm x 5mm red plaque with scale Left forearm lesion 3.5cm x 2cm hypopigmented plaque with irregular border Neurological: Mental Status: She is alert. Assessment/Plan Barbra was seen today for hyperlipidemia and hypertension. 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 Continue current regimen. Check CMP, A1c and chronic kidney disease labs. Mixed hyperlipidemia - Lipid profile; Future - Lipid profile Check lipid panel Gastroesophageal reflux disease with esophagitis without hemorrhage Risks and benefits of medications discussed. PPI use increase his risk of chronic kidney disease, C diff infection and fractures. Patient is aware of the risks and wishes to continue. Neoplasm of uncertain behavior of skin - Ambulatory referral to Dermatology ([facility]); Future Lesions are somewhat suspicious for cancer. Will refer to specialist for their opinion. Class 1 obesity due to excess calories with serious comorbidity and body mass index (BMI) of 31.0 to 31.9 in adult She is obese. She would benefit from weight loss. Patient noted to have elevated BMI and the following intervention(s) were applied: encouragement to exercise and prescribed diet education. documented in this encounter [facility] 11-09-2024 History of Presen t illness Narrative Subjective SUBJECTIVE: Patient ID: Barbra Joy is a 79 y.o. female who presents for a Medicare Annual Wellness exam. HPI The following portions of the patient's history were reviewed and updated as appropriate: allergies, current medications, past family history, past medical history, past social history, past surgical history and problem list. AWV FLOWSHEET : Lifestyle Assessment Do you smoke or use smokeless tobacco?: No If you smoke or use smokeless tobacco, are you ready to quit?: NA Are you exposed to secondhand smoke?: No On average, how many drinks of alcohol do you consume in a week?: None Do you exercise for 30 or more minutes on average at least 3 days a week?: (!) Never Do you have any tooth, denture, or oral problems?: No Do you snore or has anyone told you that you snore?: (!) Yes Do you try to eat a balanced diet?: Yes Do you experience leakage of urine, also known as urinary incontinence?: Never Do you have difficulty bathing?: No Do you have difficulty dressing?: No Do you have difficulty grooming?: No Do you have difficulty eating?: No Do you have difficulty getting out of a chair?: No Do you have difficulty walking?: No Do you have difficulty using the toilet?: No Do you have difficulty doing laundry?: No Do you have difficulty with housekeeping?: No Do you have difficulty preparing a meal?: No Do you have difficulty shopping?: No Do you have difficulty using transportation?: No Do you have difficulty paying bills?: No Do you have difficulty managing finances?: No Fall Risk Fall Risk Assessment Completed?: Yes Have you fallen in the past year?: No Are you worried about falling?: (!) Yes Do you feel unsteady when standing or walking?: (!) Yes Risk Stratification: Moderate Risk Depression Screening Little interest or pleasure in doing things: Not at all Feeling down, depressed, or hopeless: Not at all Trouble falling or staying asleep, or sleeping too much: Not at all Feeling tired or having little energy: Not at all Poor appetite or overeating: Not at all Feeling bad about yourself - or that you are a failure or have let yourself or your family down: Not at all Trouble concentrating on things, such as reading the newspaper or watching television: Not at all Moving or speaking so slowly that other people could have noticed. Or the opposite - being so fidgety or restless that you have been moving around a lot more than usual: Not at all Thoughts that you would be better off , or of hurting yourself in some way: Not at all PEG Scale What number best describes your pain on average in the past week?: 5 Safety Assessment Do you have throw rugs on the floor?: No Do you feel safe at your home?: Yes Do you feel unsteady when walking?: (!) Yes Are you having difficulty with driving?: No Do you have trouble seeing?: No Do you use a bath bar/seat?: (!) Yes Do you use a raised toilet seat?: (!) Yes Do you use a cane?: No Do you use a walker?: No Do you use a wheelchair?: No Hearing Assessment Do you strain or struggle to hear/understand conversations?: (!) Yes Do you have trouble hearing the television or radio when others do not?: (!) Yes Does your family ever voice concerns about your hearing?: (!) Yes Do you wear hearing aid/s?: No Personal Health During the past 4 weeks, how would you rate your overall health?: Very Good Do you understand how to take all of your medications?: Yes How confident are you that you can control and manage most of your health problems?: Very confident In the past 12 months, how many times have you been hospitalized?: None End of Life Planning Do you have a living will?: Yes Do you have a durable power of mergers and acquisitions attorney?: Yes Cognitive Screening Do you have trouble remembering or recalling facts or events?: No Do family members or caregivers report that you have difficulty remembering things?: No 6-Cit: Normal REVIEW OF SYSTEMS: Review of Systems Objective PHYSICAL EXAMINATION: Vitals: 11/09/24 1223 BP: 134/82 Weight: 77.1 kg (170 lb) Height: 157.5 cm (5' 2 ) Physical Exam Assessment/Plan ASSESSMENT/PLAN Encounter Diagnoses Name Primary? Medicare annual wellness visit, subsequent Yes Screening for depression Health maintenance discussed. Depression screen was negative. At least 3 minute spent administering and discussing. Cognitive evaluation did not reveal any impairment. She has advanced directives in place. Return in about 1 year (around 11/09/2025). documented in this encounter [facility] 07-05-2024 History of Presen t illness Narrative Subjective Patient ID: Barbra Joy is a 78 y.o. female. Barbra presents for diabetic recheck. She is taking all of her medications. She has no side effects. The Jardiance was 700 dollars so she can not afford that. She would re-consider it if it is cheaper this year. She does tire easily but attributes that to her age. She says when she goes grocery shopping she is too tired to put the groceries away and her does it for her. The right side of her neck hurts from time to time. She showed me where it hurts and it is along the sternomastoid muscle on the right . She needs the Protonix every day. If she does not she starts having symptoms. Even with the Protonix and the famotidine she was still occasionally have heartburn depending on what she eats and if she eats late in the day. It did it happened the other day where she had to vomit after eating late and her stomach was upset. The following portions of the patient's history were reviewed and updated as appropriate: allergies, current medications, past family history, past medical history, past social history, past surgical history, problem list, and medication reconciliation was completed including current medication and post discharge medication. Review of Systems Constitutional: Positive for fatigue. HENT: Negative. Eyes: Negative. Respiratory: Negative. Cardiovascular: Negative. Gastrointestinal: Negative. Endocrine: Negative. Genitourinary: Negative. Musculoskeletal: Negative. Allergic/Immunologic: Negative. Neurological: Negative. Hematological: Negative. Psychiatric/Behavioral: Negative. Objective Physical Exam Vitals reviewed. Constitutional: General: She is not in acute distress. Appearance: She is obese. HENT: Head: Normocephalic. Eyes: General: No scleral icterus. Extraocular Movements: Extraocular movements intact. Conjunctiva/sclera: Conjunctivae normal. Neck: Vascular: No carotid bruit. Cardiovascular: Rate and Rhythm: Normal rate and regular rhythm. Pulses: Normal pulses. Heart sounds: Murmur heard. Pulmonary: Effort: Pulmonary effort is normal. No respiratory distress. Breath sounds: Normal breath sounds. No wheezing, rhonchi or rales. Abdominal: General: Bowel sounds are normal. Palpations: Abdomen is soft. Tenderness: There is no abdominal tenderness. Musculoskeletal: Cervical back: Neck supple. Tenderness (Right sternomastoid muscle) present. Right lower leg: No edema. Left lower leg: No edema. Lymphadenopathy: Cervical: No cervical adenopathy. Neurological: General: No focal deficit present. Mental Status: She is alert and oriented to person, place, and time. Psychiatric: Mood and Affect: Mood normal. Behavior: Behavior normal. Thought Content: Thought content normal. Judgment: Judgment normal. Assessment/Plan Barbra was seen today for hypertension and hyperlipidemia. Diagnoses and all orders for this visit: 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 ([facility]) - Hemoglobin A1c; Future - Basic Metabolic Panel; Future - TSH; Future Check A1c, BMP and TSH. Continue current regimen. Blood pressure is at goal. Encounter for screening mammogram for malignant neoplasm of breast - Mammography screening bilateral with CAD; Future She requested a mammogram to screen for breast cancer. She would pursue further evaluation and treatment. Ulcer of esophagus without bleeding - pantoprazole (PROTONIX) 40 mg EC tablet; Take 1 tablet (40 mg total) by mouth every morning before breakfast. Continue Protonix and famotidine. We did discuss ongoing symptoms with medication. Could possibly be her gallbladder. We discussed testing this further but she declined. Anemia, unspecified type - CBC without diff; Future Check CBC to monitor anemia Class 1 obesity due to excess calories with serious comorbidity and body mass index (BMI) of 31.0 to 31.9 in adult She is obese. We will check TSH. Diet and exercise discussed. She essentially does no exercise and has no equipment. That would be beneficial for her health and would help her diabetes, high blood pressure and high cholesterol. documented in this encounter [facility] 02-12-2024 Hospital Discharg e instructions Patient Education 02/12/2024 13:37:28 Kidney Stones, Kqss-rx-Tfom Kidney Stones Kidney stones are rock-like masses that form inside of the kidneys. Kidneys are organs that make pee (urine). A kidney stone may move into other parts of the urinary tract, including: The tubes that connect the kidneys to the bladder (ureters). The bladder. The tube that carries urine out of the body (urethra). Kidney stones can cause very bad pain and can block the flow of pee. The stone usually leaves your body through your pee. A doctor may need to take out the stone. What are the causes? Kidney stones may be caused by: Too much calcium in the body. This may be caused by too much parathyroid hormone in the blood. Uric acid crystals in the bladder. The body makes uric acid when you eat certain foods. Narrowing of one or both of the ureters. A kidney blockage that you were born with. Past surgery on the kidney or the ureters. What increases the risk? You are more likely to develop this condition if: You have had a kidney stone in the past. Other people in your family have had kidney stones. You do not drink enough water. You eat a diet that is high in protein, salt (sodium), or sugar. You are very overweight (obese). What are the signs or symptoms? Symptoms of a kidney stone may include: Pain in the side of the belly, right below the ribs. Pain usually spreads to the groin. Needing to pee often or right away. Pain when peeing. Blood in your pee. Feeling like you may vomit (nauseous). Vomiting. Fever and chills. How is this treated? Treatment depends on the size, location, and makeup of the kidney stones. The stones will often pass out of the body when you pee. You may need to: Drink more fluid to help pass the stone. ?In some cases, you may be given fluids through an IV tube at the hospital. Take medicine for pain. Change your diet to help keep kidney stones from coming back. Sometimes, you may need: A procedure to break up kidney stones using a beam of light (laser) or shock waves. Surgery to remove the kidney stones. Follow these instructions at home: Medicines Take wmnt-rqu-ijohpdu and prescription medicines only as told by your doctor. Ask your doctor if the medicine prescribed to you requires you to avoid driving or using machinery. Eating and drinking Drink enough fluid to keep your pee pale yellow. ?You may be told to drink at least 8 10 glasses of water each day. This will help you pass the stone. If told by your doctor, change your diet. You may be told to: ?Limit how much salt you eat. ?Eat more fruits and vegetables. ?Limit how much meat, poultry, fish, and eggs you eat. Follow instructions from your doctor about what you may eat and drink. General instructions Collect pee samples as told by your doctor. You may need to collect a pee sample: ?24 hours after a stone comes out. ?8 12 weeks after a stone comes out, and every 6 12 months after that. Strain your pee every time you pee. Use the strainer that your doctor recommends. Do not throw out the stone. Keep it so that it can be tested by your doctor. Keep all follow-up visits. You may need X-rays and ultrasounds to make sure the stone has come out. How is this prevented? To prevent another kidney stone: Drink enough fluid to keep your pee pale yellow. This is the best way to prevent kidney stones. Eat healthy foods. Avoid certain foods as told by your doctor. You may be told to eat less protein. Stay at a healthy weight. Where to find more information National Kidney Foundation (NKF): kidney.org [facility] [employer] [facility] (UCF): urologyhealth.org Contact a doctor if: You have pain that gets worse or does not get better with medicine. Get help right away if: You have a fever or chills. You get very bad pain. You get new pain in your belly. You faint. You cannot pee. This information is not intended to replace advice given to you by your health care provider. Make sure you discuss any questions you have with your health care provider. Document Revised: 01/10/2023 Document Reviewed: 01/10/2023 [employer] Patient Education 2023 [employer] Follow Up Care 02/10/2023 10:36:44 With:CECELIA MEDINA, Gavino Manjarrez, URL Address: [address] [place] [address] [place] [address]- When:1 year Comments:w/ [facility] 02-10-2023 [facility] Discharg e instructions Patient Education 02/10/2023 10:27:51 Dietary Guidelines to Help Prevent Kidney Stones Dietary Guidelines to Help Prevent Kidney Stones Kidney stones are deposits of minerals and salts that form inside your kidneys. Your risk of developing kidney stones may be greater depending on your diet, your lifestyle, the medicines you take, and whether you have certain medical conditions. Most people can lower their chances of developing kidney stones by following the instructions below. Your dietitian may give you more specific instructions depending on your overall health and the type of kidney stones you tend to develop. What are tips for following this plan? Reading food labels Choose foods with no salt added or low-salt labels. Limit your salt (sodium) intake to less than 1,500 mg a day. Choose foods with calcium for each meal and snack. Try to eat about 300 mg of calcium at each meal. Foods that contain 200 500 mg of calcium a serving include: ?8 oz (237 mL) of milk, ggxoexm-kaskjswexgav-ejase milk, and calcium-fortifiedfruit juice. Calcium-fortified means that calcium has been added to these drinks. ?8 oz (237 mL) of kefir, yogurt, and soy yogurt. ?4 oz (114 g) of tofu. ?1 oz (28 g) of cheese. ?1 cup (150 g) of dried figs. ?1 cup (91 g) of cooked broccoli. ?One 3 oz (85 g) can of sardines or mackerel. Most people need 1,000 1,500 mg of calcium a day. Talk to your dietitian about how much calcium is recommended for you. Shopping Buy plenty of fresh fruits and vegetables. Most people do not need to avoid fruits and vegetables, even if these foods contain nutrients that may contribute to kidney stones. When shopping for convenience foods, choose: ?Whole pieces of fruit. ?Pre-made salads with dressing on the side. ?Low-fat fruit and yogurt smoothies. Avoid buying frozen meals or prepared deli foods. These can be high in sodium. Look for foods with live cultures, such as yogurt and kefir. Choose high-fiber grains, such as whole-wheat breads, oat bran, and wheat cereals. Cooking Do not add salt to food when cooking. Place a salt shaker on the table and allow each person to add his or her own salt to taste. Use vegetable protein, such as beans, textured vegetable protein (TVP), or tofu, instead of meat in pasta, casseroles, and soups. Meal planning Eat less salt, if told by your dietitian. To do this: ?Avoid eating processed or pre-made food. ?Avoid eating fast food. Eat less animal protein, including cheese, meat, poultry, or fish, if told by your dietitian. To do this: ?Limit the number of times you have meat, poultry, fish, or cheese each week. Eat a diet free of meat at least 2 days a week. ?Eat only one serving each day of meat, poultry, fish, or seafood. ?When you prepare animal protein, cut pieces into small portion sizes. For most meat and fish, one serving is about the size of the palm of your hand. Eat at least five servings of fresh fruits and vegetables each day. To do this: ?Keep fruits and vegetables on hand for snacks. ?Eat one piece of fruit or a handful of berries with breakfast. ?Have a salad and fruit at lunch. ?Have two kinds of vegetables at dinner. Limit foods that are high in a substance called oxalate. These include: ?Spinach (cooked), rhubarb, beets, sweet potatoes, and [place]raini chard. ?Peanuts. ?Potato chips, luxembourger fries, and baked potatoes with skin on. ?Nuts and nut products. ?Chocolate. If you regularly take a diuretic medicine, make sure to eat at least 1 or 2 servings of fruits or vegetables that are high in potassium each day. These include: ?Avocado. ?Banana. ?[place], prune, carrot, or tomato juice. ?Baked potato. ?Cabbage. ?Beans and split peas. Lifestyle Drink enough fluid to keep your urine pale yellow. This is the most important thing you can do. Spread your fluid intake throughout the day. If you drink alcohol: ?Limit how much you use to: ?0 1 drink a day for women who are not . ?0 2 drinks a day for men. ?Be aware of how much alcohol is in your drink. In the [place] one drink equals one 12 oz bottle of beer (355 mL), one 5 oz glass of wine (148 mL), or one 1 oz glass of hard liquor (44 mL). Lose weight if told by your health care provider. Work with your dietitian to find an eating plan and weight loss strategies that work best for you. General information Talk to your health care provider and dietitian about taking daily supplements. You may be told the following depending on your health and the cause of your kidney stones: ?Not to take supplements with vitamin C. ?To take a calcium supplement. ?To take a daily probiotic supplement. ?To take other supplements such as magnesium, fish oil, or vitamin B6. Take fboh-[id number]-[id number] and prescription medicines only as told by your health care provider. These include supplements. What foods should I limit? Limit your intake of the following foods, or eat them as told by your dietitian. Vegetables Spinach. Rhubarb. Beets. Canned vegetables. Pickles. Olives. Baked potatoes with skin. Grains Wheat bran. Baked goods. Salted crackers. Cereals high in sugar. Meats and other proteins Nuts. Nut butters. Large portions of meat, poultry, or fish. Salted, precooked, or cured meats, such as sausages, meat loaves, and hot dogs. Dairy Cheese. Beverages Regular soft drinks. Regular vegetable juice. Seasonings and condiments Seasoning blends with salt. Salad dressings. Soy sauce. Ketchup. Barbecue sauce. Other foods Canned soups. Canned pasta sauce. Casseroles. Pizza. Lasagna. Frozen meals. Potato chips. Nepalese fries. The items listed above may not be a complete list of foods and beverages you should limit. Contact a dietitian for more information. What foods should I avoid? Talk to your dietitian about specific foods you should avoid based on the type of kidney stones you have and your overall health. Fruits Grapefruit. The item listed above may not be a complete list of foods and beverages you should avoid. Contact a dietitian for more information. Summary Kidney stones are deposits of minerals and salts that form inside your kidneys. You can lower your risk of kidney stones by making changes to your diet. The most important thing you can do is drink enough fluid. Drink enough fluid to keep your urine pale yellow. Talk to your dietitian about how much calcium you should have each day, and eat less salt and animal protein as told by your dietitian. This information is not intended to replace advice given to you by your health care provider. Make sure you discuss any questions you have with your health care provider. Document Revised: 01/28/2022 Document Reviewed: 01/28/2022 [employer] Patient Education 2022 [employer]. Follow Up Care 02/08/2022 10:36:48 With:CECELIA MEDINA, Gavino Manjarrez, URL Address: [facility] [address], [place] [address] [phone] When:Within 1 Year(s) Comments:w/QAMAR [facility] 02-08-2022 Hospital Discharg e instructions Patient Education 02/08/2022 10:16:37 Kidney Stones, [id number]-Opfi Kidney Stones Kidney stones are rock-like masses that form inside of the kidneys. Kidneys are organs that make pee (urine). A kidney stone may move into other parts of the urinary tract, including: The tubes that connect the kidneys to the bladder (ureters). The bladder. The tube that carries urine out of the body (urethra). Kidney stones can cause very bad pain and can block the flow of pee. The stone usually leaves your body (passes) through your pee. You may need to have a doctor take out the stone. What are the causes? Kidney stones may be caused by: A condition in which certain glands make too much parathyroid hormone (primary hyperparathyroidism). A buildup of a type of crystals in the bladder made of a chemical called uric acid. The body makes uric acid when you eat certain foods. Narrowing (stricture) of one or both of the ureters. A kidney blockage that you were born with. Past surgery on the kidney or the ureters, such as gastric bypass surgery. What increases the risk? You are more likely to develop this condition if: You have had a kidney stone in the past. You have a family history of kidney stones. You do not drink enough water. You eat a diet that is high in protein, salt (sodium), or sugar. You are overweight or very overweight (obese). What are the signs or symptoms? Symptoms of a kidney stone may include: Pain in the side of the belly, right below the ribs (flank pain). Pain usually spreads (radiates) to the groin. Needing to pee often or right away (urgently). Pain when going pee (urinating). Blood in your pee (hematuria). Feeling like you may vomit (nauseous). Vomiting. Fever and chills. How is this treated? Treatment depends on the size, location, and makeup of the kidney stones. The stones will often pass out of the body through peeing. You may need to: Drink more fluid to help pass the stone. In some cases, you may be given fluids through an IV tube put into one of your veins at the hospital. Take medicine for pain. Make changes in your diet to help keep kidney stones from coming back. Sometimes, medical procedures are needed to remove a kidney stone. This may involve: A procedure to break up kidney stones using a beam of light (laser) or shock waves. Surgery to remove the kidney stones. Follow these instructions at home: Medicines Take wnnk-rgk-fmuzaol and prescription medicines only as told by your doctor. Ask your doctor if the medicine prescribed to you requires you to avoid driving or using heavy machinery. Eating and drinking Drink enough fluid to keep your pee pale yellow. You may be told to drink at least 8 10 glasses of water each day. This will help you pass the stone. If told by your doctor, change your diet. This may include: ?Limiting how much salt you eat. ?Eating more fruits and vegetables. ?Limiting how much meat, poultry, fish, and eggs you eat. Follow instructions from your doctor about eating or drinking restrictions. General instructions Collect pee samples as told by your doctor. You may need to collect a pee sample: ?24 hours after a stone comes out. ?8 12 weeks after a stone comes out, and every 6 12 months after that. Strain your pee every time you pee (urinate), for as long as told. Use the strainer that your doctor recommends. Do not throw out the stone. Keep it so that it can be tested by your doctor. Keep all follow-up visits as told by your doctor. This is important. You may need follow-up tests. How is this prevented? To prevent another kidney stone: Drink enough fluid to keep your pee pale yellow. This is the best way to prevent kidney stones. Eat healthy foods. Avoid certain foods as told by your doctor. You may be told to eat less protein. Stay at a healthy weight. Where to find more information National Kidney Foundation (NKF): www.kidney.org [facility] (UCF): www.urologyhealth.org Contact a doctor if: You have pain that gets worse or does not get better with medicine. Get help right away if: You have a fever or chills. You get very bad pain. You get new pain in your belly (abdomen). You pass out (faint). You cannot pee. Summary Kidney stones are rock-like masses that form inside of the kidneys. Kidney stones can cause very bad pain and can block the flow of pee. The stones will often pass out of the body through peeing. Drink enough fluid to keep your pee pale yellow. This information is not intended to replace advice given to you by your health care provider. Make sure you discuss any questions you have with your health care provider. Document Released: 11/04/2008 Document Revised: 10/05/2019 Document Reviewed: 10/05/2019 [employer] Patient Education 2020 [employer]. Follow Up Care 02/02/2021 11:05:39 With:Gavino GENTILE MD, URL Address: [address] [place], [place] [id number]- When: Unknown [facility] Evaluation + Plan note Future Appointments Appointment Date:02/10/2023 09:45:00 AM Scheduled Provider:Gavino GENTILE MD Location:[facility] Appointment Type:URO Office Visit [facility] Evaluation + Plan note Future Appointments Appointment Date:02/13/2024 10:15:00 AM Scheduled Provider:Gavino GENTILE MD Location:[facility] Appointment Type:URO Office Visit [facility] Evaluation + Plan note Future Appointments Appointment Date:02/11/2025 10:15:00 AM Scheduled Provider:Gavino GENTILE MD Location:[facility] Appointment Type:URO Office Visit [facility] Evaluation + Plan note Future Appointments Appointment Date:02/10/2026 10:15:00 AM Scheduled Provider:Gavino GENTILE MD Location:[facility] Appointment Type:URO Office Visit [facility] Evaluation note No assessment inform ation available [facility] Work Phone: Evaluation note Diagnosis Gastroesophageal reflux disease with esophagitis without hemorrhage documented in this encounter [facility]* Diagnosis 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 (CMS-HCC)- Primary Encounter for screening mammogram for malignant neoplasm of breast Ulcer of esophagus without bleeding Anemia, unspecified type Class 1 obesity due to excess calories with serious comorbidity and body mass index (BMI) of 31.0 to 31.9 in adult documented in this encounter [facility]* Diagnosis 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 (CMS-HCC) documented in this encounter [facility]* Diagnosis Mixed hyperlipidemia documented in this encounter [facility]* Diagnosis Medicare annual wellness visit, subsequent- Primary Screening for depression documented in this encounter [facility]* Diagnosis 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 (CMS-HCC)- Primary [facility] this encounter [facility] Diagnosis 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 (CMS-HCC)- Primary Mixed hyperlipidemia Gastroesophageal reflux disease with esophagitis without hemorrhage Neoplasm of uncertain behavior of skin Class 1 obesity due to excess calories with serious comorbidity and body mass index (BMI) of 31.0 to 31.9 in adult documented in this encounter [facility]* Diagnosis Ulcer of esophagus without bleeding documented in this encounter [facility]* Diagnosis 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 (CMS-HCC) documented in this encounter [facility] Narrative No data available for this section [facility] InstructionsNot on filedocumented in this encounter [facility]ructions[facility] on filedocumented in this encounter [facility] System[facility]ructionsNot on filedocumented in this encounter [facility] System[facility]ructionsNot on filedocumented in this encounter [facility] System[facility]ructionsNot on filedocumented in this encounter [facility] No data available for this section [facility] Summary Purpose Family History No Family History Records Found Relationship Condition Age at Onset Recorded Date/T chandana father Unknown Not Specified Unknown Advance Directives No Advanced Directives Records Found Advance Directive Response Recorded Date/ Time Advance Directives No November 27 1:07pm Chief Complaint and Reason for Visit Chief Complaint M25.532 Chief Complaint Bug bite on left arm Additional Source Comments INFORMATION SOURCE (unrecogn ized section and content) DATE CREATED AUTHOR 09/22/2021 [facility] DATE CREATED AUTHOR AUTHOR'S ORGANIZ ATION 12/08/2021 [facility] DATE CREATED AUTHOR AUTHOR'S ORGANIZ ATION 02/09/[address] [facility] DATE CREATED AUTHOR AUTHOR'S ORGANIZ ATION 01/17/2024 [facility] DATE CREATED AUTHOR AUTHOR'S ORGANIZ ATION 07/07/2024 [facility] DATE CREATED AUTHOR AUTHOR'S ORGANIZ ATION 07/27/2024 [facility] DATE CREATED AUTHOR AUTHOR'S ORGANIZ ATION 01/08/2025 [facility] DATE CREATED AUTHOR AUTHOR'S ORGANIZ ATION 02/13/2025 [facility] Care Teams (unrecognized sec tion and content) Team Status: Inactive Member Role Status Dates David Correa MD Primary Care Provider Active INDIG[employer] Vincent Attending Provider Active Team Status: Active Member Role Status Dates David Correa MD Primary Care Provider Active Team Status: Inactive Member Role Status Dates David Correa MD Primary Care Provider Active Start: September 05, 2023 End: September 05, 2023 Carmen Serna APRN Attending Provider Active Start: September 05, 2023 End: September 05, 2023 [employer]visor [employer] Relationship Specialty Start Date End Date Herb Vergara DO [address] [place] [address] PCP - General Family Medicine 11/05/17 [employer] Relationship Specialty Start Date End Date Herb Vergara DO [address] [place] [address] PCP - General Family Medicine 11/05/17 Supervisor [employer] Relationship Specialty Start Date End Date Herb Vergara DO [address] [place] [address] PCP - General Family Medicine 11/05/17 Supervisor [employer] Relationship Specialty Start Date End Date Herb Vergara DO [address] [place] [address] PCP - General Family Medicine 11/05/17 Supervisor [employer] Department Relationship Specialty Start Date End Date Herb Vergara DO [address] [place] [address] PCP - General Family Medicine 11/05/17 Supervisor [employer] Relationship Specialty Start Date End Date Herb Vergara DO [address] [place] [address] PCP - General Family Medicine 11/05/17 Goals (unrecognized section and content) Goals may be documented in a n alternate section No data available for this section No data available for this sectionGoals may be documented in an alternate section No data available for this sectionNot on filedocumented as of this encounterNot on filedocumented as of this encounterNot on filedocumented as of this encounterNot on filedocumented as of this encounterNot on filedocumented as of this encounterNot on filedocumented as of this encounterNot on filedocumented as of this encounterNot on filedocumented as of this encounterNot on filedocumented as of this encounterNot on filedocumented as of this encounterNot on filedocumented as of this encounterNot on filedocumented as of this encounter No data available for this section Reason for Visit (unrecogniz ed section and content) Reason Comments Med Refill Reason Comments Hypertension Hyperlipidemia Cv- Please order johnnie mogram Reason Comments maw Reason Comments Med Refill Reason Onset Date Comments Med Refill 12/14/2024 Reason Comments Hyperlipidemia Hypertension Reason Onset Date Comments Med Refill 01/20/2025 FOR RECORDS PERTAINING TO PATIENTS WHO ARE OR HAVE BEEN ENROLLED IN A CHEMICAL DEPENDENCY/SUBSTANCEABUSE PROGRAM, SOME INFORMATION MAY BE OMITTED. This clinical summary was aggregated from multiple sources. Caution should be exercised in using it in the provision of clinical care. This summary normalizes information from multiple sources, and as a consequence, information in this document may materially change the coding, format and clinical context of patient data. In addition, data may be omitted in some cases. CLINICAL DECISIONS SHOULD BE BASED ON THE PRIMARY CLINICAL RECORDS. [employer] provides no warranty or guarantee of the accuracy or completeness of information in this document.
== END 2025-02-18 10:09 | disposition home or self-care (01) ==
LOC: US 10:08
PROVIDERS: PCP Family Medicine; Visit Provider Urology
DX: N20.0 Calculus of kidney (principal)
CPT/HCPCS: 76775